=== PATIENT | male | born 1975 | race Two or more races ===

== ENCOUNTER 2025-03-02 06:30 | Day surgery (SDC) | payer MEDICAID, SELFPAY ==
--- NOTE | 2025-02-26 06:10 | EKG_ITS ---
[facility] Test Date: 2025-02-26 Pat Name: AMY MORGAN Department: Room: - Gender: Male [employer] Supervisor: JAVIER : 1975 Requested By: Suyapa Goins Order Number: [id number] Reading MD: Suyapa Goins Measurements Intervals [place] Rate: 78 P: 29 [place]: 163 QRS: 29 QRSD: 89 T: 18 QT: 395 QTc: 451 Interpretive Statements SINUS RHYTHM NONSPECIFIC T-WAVE ABNORMALITY Compared to ECG 07/21/2024 20:18:25 No significant changes /store/S0/[id number].pdf
[2025-02-26 10:55] VITALS: BMI 30.1
[2025-02-26 11:29] LABS: Basophils % (Auto) 0 % (0-2.5); Eosinophils # (Auto) 0.1 Thou/mm3 (0.0-0.5); Eosinophils % (Auto) 2 % (0-10); Hematocrit 36.2 % (41.0-53.0); Hemoglobin 13.1 g/dL (13.5-16.0); Immature Granulocytes % (Auto) 1 % (0-0); Immature Granulocytes Auto 0.02 Thou/mm3 (0.00-0.00); Lymphocytes # (Auto) 0.5 Thou/mm3 (1.0-4.8); Lymphocytes % (Auto) 14 % (10-50); Mean Corpuscular HGB Conc 36.2 g/dl (31.0-37.0); Mean Corpuscular Hemoglobin 30.7 pg (25.0-35.0); Mean Corpuscular Volume 85 fL (80-100); Monocytes # (Auto) 0.3 Thou/mm3 (0.0-0.8); Monocytes % (Auto) 10 % (0-12); Neutrophils # (Auto) 2.4 Thou/mm3 (1.8-7.7); Neutrophils % (Auto) 73 % (37-80); Nucleated Red Blood Cell % 0 /100 WBC (0); RDW Standard Deviation 54.8 fL (35.1-43.9); Red Blood Count 4.27 Miln/mm3 (4.50-5.90); White Blood Count 3.3 Thou/mm3 (3.8-10.6)
[2025-02-26 11:39] LABS: Platelet Count 44 Thou/mm3 (140-440)
[2025-02-26 11:41] LABS: INR 1.3 (0.9-1.3); Prothrombin Time 14.3 Seconds (9.0-12.2)
[2025-02-26 11:46] LABS: Alanine Aminotransferase 37 U/L (10-49); Albumin, Serum 3.7 gm/dL (3.5-5.0); Albumin/Globulin Ratio 0.8 (1.2-2.2); Alkaline Phosphatase 285 U/L (46-116); Anion Gap 14 (7-16); Aspartate Amino Transferase 139 U/L (0-34); BUN/Creatinine Ratio 6 Ratio (12-20); Bilirubin,Total 3.5 mg/dL (0.3-1.2); Blood Urea Nitrogen 7 mg/dL (9-23); Calcium 8.2 mg/dL (8.3-10.6); Calcium (Corrected) 8.4 mg/dL (8.5-10.1); Chloride 98 mMol/L (98-107); Creatinine (Component) 1.1 mg/dL (0.6-1.3); Estimated Creatinine Clearance 81.9 mL/min (>60); Globulin 4.6 gm/dL (2.3-3.5); Glucose 225 mg/dL (74-106); Osmolality,Calculated 284 (275-295); Sodium 140 mMol/L (136-145); Total Protein 8.3 gm/dL (5.7-8.2); eGFR > 60 See Note
--- NOTE | 2025-02-26 12:57 | SUR.PREOP ---
Platelets 44, PTT 14.3, INR 1.3, K 3, labs reviewed with ana luisa Rob to proceed with surgery.
[2025-02-26 15:54] LABS: Slide Review Platelets confirmed
[2025-03-02] VITALS (7 sets, daily range): BP systolic 129–154; BP diastolic 76–92; PULSE 84–96; RESP 12–16; TEMP 36.6–37; O2SAT 95–98; BMI 28.4
--- NOTE | 2025-03-02 11:59 | ESOP_ITS ---
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 After administration of general endotracheal anesthesia, patient's left groin was shaved, prepped and draped in standard surgical manner. The left inguinal crease was anesthetized with half percent Marcaine. An approximately 8 cm incision was made and dissection was carried to subcutaneous tissue. The Karen's fascia was divided and the external oblique aponeurosis was opened towards the external ring. The hernia sac and the spermatic cord structures were from the posterior aspect of the external oblique aponeurosis at the level of pubic tubercle. The hernia sac was then meticulously dissected off the spermatic cord structures at the level of internal ring. Patient had indirect left inguinal hernia sac. The hernia sac was then ligated at the level of internal ring. He was also noted to have a moderate-sized lipoma of the spermatic cord. The lipoma was meticulously from the spermatic cord structures and ligated at the level of internal ring and excised. The floor of inguinal canal was then reconstructed with ultra Pro proceed mesh. The mesh was secured with running 2-0 Prolene suture. The mesh secured medially to the pubic tubercle, superiorly into the conjoin tendon, inferiorly and to the shelving edge of inguinal ligament, the mesh was placed around the cord structures and tacked under the external oblique aponeurosis laterally. The area was copiously and thoroughly washed and irrigated, all the fluids were suctioned and the suction fluid returned clear. Hemostasis was adequate and satisfactory. External oblique aponeurosis was closed with running 2-0 Vicryl suture, and Karen's fascia was closed with interrupted suture using 3-0 Vicryl. The incision was closed with 4-0 Monocryl in subcutaneous fashion. Instruments, needles and sponge counts were reported to be correct ?2. Patient tolerated the procedure well. He was extubated, breathing spontaneously and without di fficulty and was transferred to postanesthesia care in stable condition. Anesthesia GETA and local Pathology / specimen Other (Hernia sac, lipoma of the spermatic cord) Estimated Blood Loss 25 Condition Stable Disposition PACU Surgeon Suyapa Goins MD Surgical Staff Operation Date: 03/02/25 11:00 Case Staff Anesthesiologist: Perez Waller RNbusiness services clerk: Gretchen Bingham
--- NOTE | 2025-03-02 12:02 | SUR.PHASEI ---
pt received from OR in recovery bay 7. pt awake and alert, breathing unlabored on oxymask 6l. v/s stable. pt dressing to lower abd cdi. report received from Ganesh Rn, Dr. Waller and Karson MCKINNON.
--- NOTE | 2025-03-02 12:22 | SUR.PHASEI ---
pt able to tolerate oral fluids without difficulty swallowing or nausea/vomiting.
--- NOTE | 2025-03-02 12:55 | SUR.PHASEII ---
Report from Joshua RN, pt awake, alert, able to follow commands, breathing unlabored, dressing to lower left inguinal region clean, dry, and intact, abdominal binder in place, pt disconnected from monitors and discharge instructions given by Joshua GARCIA
--- NOTE | 2025-03-02 13:03 | SUR.PHASEII ---
pt able to dress self and ambulate to wheelchair, pt discharged via wheelchair with all belongings and copies of discharge paperwork
--- NOTE | 2025-03-02 13:03 | SUR.PHASEII ---
pt able to dress self and ambulate to wheelchair with all belongings and copies of discharge paperwork.
== END 2025-03-02 13:03 | disposition home or self-care (01) ==
PROVIDERS: Anesthesiology; PCP Physician Assistant; Referring Provider Surgery; Visit Provider Surgery
PROC: (CPT 49505; principal; 2025-03-02 10:45)
DX: K40.90 Unilateral inguinal hernia, without obstruction or gangrene, not specified as recurrent (principal); D17.6 Benign lipomatous neoplasm of spermatic cord; Z01.810 Encounter for preprocedural cardiovascular examination
CPT/HCPCS: 49505; 36415; 80053; 85025; 85610; 85730; 93005; A4217; A4649; C1781; J0690; J1100; J2371; J2704; J2765; J3010; J3490; A9270; J1805

== ENCOUNTER 2025-04-01 07:47 | Outpatient (RCR) | payer MEDICAID, SELFPAY | END 2025-04-05 23:59 | disposition home or self-care (01) | LOC: SCTC 07:47 | PROVIDERS: PCP Physician Assistant; Referring Provider Physician Assistant; Visit Provider Nurse Practitioner Family | DX: D64.9 Anemia, unspecified (principal); K76.9 Liver disease, unspecified; Z87.19 Personal history of other diseases of the digestive system | CPT/HCPCS: 99213; G0463 ==

== ENCOUNTER 2025-05-05 12:51 | Outpatient (RCR) | payer MEDICAID, SELFPAY | END 2025-05-06 23:59 | disposition home or self-care (01) | LOC: SCTC 12:51 | PROVIDERS: PCP Physician Assistant; Referring Provider Physician Assistant; Visit Provider Nurse Practitioner Family | DX: D69.6 Thrombocytopenia, unspecified (principal); K76.9 Liver disease, unspecified; D50.9 Iron deficiency anemia, unspecified | CPT/HCPCS: 99212; G0463 ==

== ENCOUNTER 2025-08-30 08:09 | Inpatient (IN) | payer MEDICAID, SELFPAY ==
--- NOTE | 2025-08-30 | XR_ITS ---
EXAMINATION: MR MRCP HISTORY: choledocholithiasis COMPARISON: 08/30/2025, CT abdomen pelvis. TECHNIQUE: Multiplanar multisequence MR imaging of the abdomen without gadolinium contrast. Additional heavily T2-weighted 3-D MRCP breath-hold images were obtained, including thick slab reconstructions. FINDINGS: Lung bases: Unremarkable. Gall bladder: Hydropic measuring 4.2 x 10.2 cm. Multiple 1 to 2 mm dependent hypointensities. Wall measures 3 mm. Small amount of surrounding T2 hyperintensity. Biliary system: No biliary ductal dilatation. No stones identified within the biliary tree. Pancreatic duct is not well-visualized. Liver: Macronodular. Midclavicular craniocaudad length 17.1 cm. Diffusely decreased T2 signal. No obvious mass, though lack of contrast limits evaluation. Spleen: 17.3 cm length. Pancreas: No gross abnormality. Some surrounding edema in the setting of ascites. Kidneys: Within normal limits. No hydronephrosis. Adrenal Glands: Within normal limits. GI Tract: Not abnormally dilated. Mild wall thickening particularly of the descending colon. Surrounding edema in the setting of ascites. Small hiatal hernia. Gastroesophageal varices. Gastric varices. Lymph nodes: No obvious lymphadenopathy. Peritoneum: Moderate ascites. Other: No significant. Bones/marrow: Unremarkable. IMPRESSION: 1. Hydropic gallbladder with mild wall thickening and innumerable 1 to 2 mm choleliths. While the surrounding edema could be due to ascites, the constellation of findings are highly concerning for acute cholecystitis. No MR findings for choledocholithiasis. 2. Decompensated cirrhosis with sequela of portal hypertension as above.
[2025-08-30 08:24] VITALS: BP 136/88; PULSE 86; RESP 18; TEMP 36.6; O2SAT 97; BMI 26.6
--- NOTE | 2025-08-30 08:30 | PD.EDRME ---
Rapid Medical Screening Exam RME Arrival date/time: 08/30/25 08:09 49-year-old male with a history of type 2 diabetes, liver cirrhosis secondary to alcohol, esophageal varices, presents to the emergency room with a chief complaint of an episode of vomiting blood this morning. I have greeted and performed a focused initial assessment of this patient. A comprehensive ED assessment and evaluation of the patient, analysis of all test results, and completion of the medical decision making process will be conducted by additional ED providers. Chief Complaint: General Adult/Misc Complain Vital signs: Vital Signs Temperature 98 F 08/30/25 08:24 Pulse Rate 86 08/30/25 08:24 Respiratory Rate 18 08/30/25 08:24 Blood Pressure 136/88 H 08/30/25 08:24 Pulse Oximetry (%) 97 08/30/25 08:24 Oxygen Delivery Method Room Air 08/30/25 08:24 Vital signs reviewed by provider: Yes Exam: Soft nontender abdomen. No distention. Clear bilateral lung sounds Clinical Impression: Upper GI bleed/esophageal varices
--- NOTE | 2025-08-30 08:31 | XR_ITS ---
Examination: CT abdomen and pelvis without contrast. Coronal 3-D reconstructions. Sagittal 2-D reconstructions. Date and time of exam: August 30, 2025, 0911 hours INDICATIONS: Generalized abdominal pain and vomiting blood this morning CTDI: vol (mGy): 8.19 DLP: (mGycm): 473 Technique: Axial images of the abdomen have been obtained, 3 mm slice thickness Intravenous contrast material has not been administered. Low dose protocols were performed. One or more of the following dose reduction techniques were used; automated exposure control, adjustment of the mA and/or KV according to patient size, use of iterative reconstruction technique. Findings: Cirrhosis, liver irregular in contour with multiple low-density lesions throughout the liver Mild to moderate ascites Significant splenomegaly Esophageal varices Perigastric varices Cholelithiasis Diffuse mucosal thickening involving the stomach No pancreatic mass No renal or ureteral calculi, no hydronephrosis Aorta normal size 24 mm fat-containing umbilical hernia Diffuse thickening of the colonic wall hepatic colopathy pattern No bowel obstruction Normal appendix Mucosal thickening up to 10 mm involving the stomach No prostatomegaly Prominent osteopenia IMPRESSION: Cirrhosis, markedly abnormal heterogeneous radiodensity with multiple low-density lesions throughout the liver, recommend MRI abdomen liver follow-up pre and postcontrast to exclude neoplastic liver lesions Significant splenomegaly Mild to moderate ascites Esophageal varices, perigastric varices Gastritis, cholelithiasis Hepatic colopathy No bowel obstruction
[2025-08-30 09:11] LABS: Basophils # (Auto) 0.0 Thou/mm3 (0.0-0.2); Basophils % (Auto) 1 % (0-2.5); Eosinophils # (Auto) 0.1 Thou/mm3 (0.0-0.5); Eosinophils % (Auto) 2 % (0-10); Hematocrit 36.9 % (41.0-53.0); Hemoglobin 12.7 g/dL (13.5-16.0); Immature Granulocytes Auto 0.04 Thou/mm3 (0.00-0.00); Lymphocytes # (Auto) 0.4 Thou/mm3 (1.0-4.8); Lymphocytes % (Auto) 8 % (10-50); Mean Corpuscular HGB Conc 34.4 g/dl (31.0-37.0); Mean Corpuscular Hemoglobin 34.0 pg (25.0-35.0); Mean Corpuscular Volume 99 fL (80-100); Monocytes # (Auto) 0.5 Thou/mm3 (0.0-0.8); Monocytes % (Auto) 10 % (0-12); Neutrophils # (Auto) 4.1 Thou/mm3 (1.8-7.7); Neutrophils % (Auto) 79 % (37-80); Nucleated Red Blood Cell # 0.00 Thou/mm3 (0.00-0.00); Nucleated Red Blood Cell % 0 /100 WBC (0); RDW Standard Deviation 54.3 fL (35.1-43.9); Red Blood Count 3.74 Miln/mm3 (4.50-5.90); White Blood Count 5.2 Thou/mm3 (3.8-10.6)
[2025-08-30 09:13] LABS: INR 1.3 (0.9-1.3); Partial Thromboplastin Time 31.0 Seconds (22.0-36.0); Prothrombin Time 13.8 Seconds (9.0-12.2)
[2025-08-30 09:17] LABS: Alanine Aminotransferase 58 U/L (10-49); Albumin, Serum 3.5 gm/dL (3.5-5.0); Albumin/Globulin Ratio 0.8 (1.2-2.2); Alkaline Phosphatase 347 U/L (46-116); Anion Gap 12 (7-16); Aspartate Amino Transferase 177 U/L (0-34); BUN/Creatinine Ratio 7 Ratio (12-20); Bilirubin,Total 6.5 mg/dL (0.3-1.2); Blood Urea Nitrogen 7 mg/dL (9-23); Calcium 8.5 mg/dL (8.3-10.6); Calcium (Corrected) 8.9 mg/dL (8.5-10.1); Carbon Dioxide 29.2 mMol/L (20.0-31.0); Chloride 102 mMol/L (98-107); Creatinine (Component) 1.0 mg/dL (0.6-1.3); Estimated Creatinine Clearance 88.4 mL/min (>60); Globulin 4.4 gm/dL (2.3-3.5); Glucose 189 mg/dL (74-106); Lipase 52 U/L (12-53); Osmolality,Calculated 287 (275-295); Potassium 3.2 mMol/L (3.4-5.1); Sodium 143 mMol/L (136-145); Total Protein 7.9 gm/dL (5.7-8.2); eGFR > 60 See Note
[2025-08-30 09:19] LABS: Platelet Count 68 Thou/mm3 (140-440)
[2025-08-30 09:32] LABS: Collection Type, Urine Clean Catch; WBC,Urine 0 /hpf (0-5)
[2025-08-30 10:09] LABS: Bilirubin,Urine Negative (Negative); Blood,Urine Negative (Negative); Clarity,Urine Clear (Clear/Hazy); Color,Urine Yellow (Lt Yel-Yel); Glucose, Urine 4+ (Negative); Ketones,Urine Negative (Negative); Leukocyte Esterase,Urine Negative (Negative); Nitrite,Urine Negative (Negative); PH,Urine 6.5 (5.0-7.0); Protein,Urine Negative (Neg - Trace); RBC,Urine 2 /hpf (0-3); Specific Gravity,Urine 1.016 (1.001-1.035); Squamous Epithelial Cell,Urine < 1 /hpf (0-5); Urobilinogen,Urine Negative mg/dL (0.0-1.0)
[2025-08-30 10:50] VITALS: BP 122/69; PULSE 82; RESP 18; TEMP 36.7; O2SAT 97
--- NOTE | 2025-08-30 10:59 | EDNOTE_ITS ---
ED GI Bleed RME/HPI General Chief complaint: General Adult/Misc Complain Stated complaint: COUGHING UP BLOOD Arrival date/time: 08/30/25 08:09 Limitations: no limitations RME / HPI RME / HPI Narrative: 08/30/25 08:09 49-year-old male with a history of type 2 diabetes, liver cirrhosis secondary to alcohol, esophageal varices, presents to the emergency room with a chief complaint of an episode of vomiting blood this morning. I have greeted and performed a focused initial assessment of this patient. A comprehensive ED assessment and evaluation of the patient, analysis of all test results, and completion of the medical decision making process will be conducted by additional ED providers. DR. BILLS MAIN ED EVALUATION 49 year old male with history of liver cirrhosis secondary to alcohol use, esophageal varices, diabetes presents to the ED for evaluation of vomiting bright red, tejas blood at approximately 07:00 AM today. Patient states this is the second occurrence of hematemesis in the last year, with a prior episode diagnosed as esophageal varices, for which banding was performed. He denies fever, chills, chest pain, shortness of breath, cough, or abdominal pain. He also denies melena, changes in bowel habits, or any recent use of blood thinners or aspirin. Denies alcohol consumption, states he last drank 2 years ago. Exam: Soft nontender abdomen. No distention. Clear bilateral lung sounds Impression: Upper GI bleed/esophageal varices Related Data Home Medications ?Medication ?Instructions ?Recorded ?Confirmed cholecalciferol (vitamin D3) 1,250 50,000 unit PO QWEE K 07/25/24 08/30/25 mcg (50,000 unit) capsule empagliflozin 25 mg tablet 25 mg PO QDAY 07/25/2408/08 (Jardiance) furosemide 40 mg tablet 40 mg PO QDAY 07/25/2408/30 spironolactone 25 mg tablet 25 mg PO 1XD 07/25/2408/08 lactulose 10 gram/15 mL oral syrup 10 g PO TID 5 08/30/25 Previous Rx's ?Medication ?Instructions ?Recorded propranolol 10 mg tablet 10 mg PO BID #60 tabs pantoprazole 40 mg tablet,delayed 40 mg PO QDAY #30 ta bs 09/03/25 release (Protonix) Allergies Allergy/AdvReac Type Severity Reaction Status Date / Time No Known Allergies Allergy Verified 08/30/25 08:13 Review of Systems Review of Systems Systems Reviewed: All systems reviewed, normal except as documented Past Medical History Past Medical History CARDIAC: Positive Cardiac Disorders and Hypertension GASTROINTESTINAL: Positive Gastrointestinal Disorders, Cirrhosis and Esophageal Varices ENDOCRINE: Positive Endocrine Disorders and Diabetes Mellitus Type 2 HEMATOLOGIC: Positive Blood Disorders and Anemia OTHER HISTORY: Positive Hospitalization (liver) and Blood Transfusions Social History SMOKING STATUS: Never smoker ED Exam General Limitations: Present no limitations General appearance: Present alert, in no apparent distress and other (chronically ill appearing ) Head Head exam: Present atraumatic Eye Eye exam: Present PERRL, EOMI and scleral icterus (mild ) ENT ENT exam: Present normal exam, normal oropharynx and mucous membranes moist Neck Neck exam: Present normal inspection, full ROM and trachea midline Chest Chest inspection: Present normal inspection and symmetric chest wall rise Respiratory Respiratory exam: Present normal lung sounds bilaterally Cardiovascular Cardiovascular exam: Present regular rate, normal rhythm and normal heart sounds Abdominal Exam Abdominal exam: Present soft and normal bowel sounds Extremities Exam Extremities exam: Present normal inspection, full ROM and other (No lower extremity edema ) Back Exam Back exam: Present normal inspection and full ROM Neurological Exam Neurological exam: Present alert, oriented X3 and CN II-XII intact Psychiatric Psychiatric exam: Present normal affect and normal mood Skin Skin exam: Present warm, dry, intact and normal color Course Quality Measures none Orders Category Date Time Status Admit to Inpatient Status Routine Admission 08/30/25 14:58 Active Patient Condition Routine Admission 08/30/25 14:58 Ordered Activity as Tolerated Routine Care 08/30/25 14:59 Ordered Blood Sugar Check-Sandostatin Q6HR Care 08/30/25 11:28 Completed MRI Screening NOW Care 08/30/25 13:34 Completed May take PO meds w/sips of H2O NEEDED Care 08/30/25 15:02 Completed Miscellaneous Nursing Order X1 Care 08/30/25 15:06 Completed NPO NOW Care 08/30/25 15:03 Completed Notify provider NEEDED Care 08/30/25 14:58 Completed Notify provider NOW Care 08/30/25 13:18 Completed Sequential Compression Device QSHIFT Care 08/30/25 14:58 Completed Strict Intake and Output Routine Care 08/30/25 14:59 Ordered Consult to Gastroenterology Stat Cons 08/30/25 13:47 Ordered Diet NPO (NOW) Diet 08/30/25 15:[address] abdomen pelvis wo con Stat Exams 08/30/25 08:31 Completed MR MRCP Stat Exams 08/30/25 Completed US abdomen limited Stat Exams 08/30/25 13:34 Completed A1C [Glycohemoglobin w (eAG)] AM DRAW Lab 08/31/25 04:23 Completed CBC AM DRAW Lab 08/31/25 04:23 Completed CBC AM DRAW Lab 09/01/25 05:30 Completed CBC AM DRAW Lab 09/02/25 06:15 Completed CBC AM DRAW Lab 09/03/25 05:32 Completed CBC Stat Lab 08/30/25 08:44 Completed CMP [Comprehensive Metabolic Panel] Stat Lab 08/30/25 08:44 Completed Comprehensive Metabolic Panel AM DRAW Lab 08/31/25 04:23 Completed Comprehensive Metabolic Panel AM DRAW Lab 09/01/25 05:30 Completed Comprehensive Metabolic Panel AM DRAW Lab 09/02/25 06:15 Completed Comprehensive Metabolic Panel AM DRAW Lab 09/03/25 05:32 Completed Lipase Stat Lab 08/30/25 08:44 Completed PT [Prothrombin Time with INR] Stat Lab 08/30/25 08:44 Completed PTT [Partial Thromboplastin Time] Stat Lab 08/30/25 08:44 Completed Type and Screen Stat Lab 08/30/25 11:00 Completed UA [Urinalysis] Stat Lab 08/30/25 09:00 Completed Urine Culture Stat Lab 08/30/25 09:00 Completed Acetaminophen Tab [Tylenol Tab] Med 08/30/25 14:58 Discontinued 650 mg PO Q6H PRN Melatonin Med 08/30/25 21:00 Discontinued 6 mg PO HS Octreotide Acet Inj [SandoSTATIN Inj] Med 08/30/25 10:51 Discontinued 50 mcg IV X1 ONE Ondansetron Inj [Zofran Inj] Med 08/30/25 14:58 Discontinued 4 mg IVP Q6H PRN POTASSIUM CHL 10 mEq IVPB [Kcl Ivpb] Med 08/30/25 13:36 Discontinued 10 meq in 100 ml IV STAT Pantoprazole Inj [Protonix Inj] Med 08/31/25 09:00 Discontinued 40 mg IVP BID Pantoprazole/Ns 80Mg IV Premix [Protonix/NS 80mg IV Med 08/30/25 10:51 Discontinued Premix] 80 mg in 100 ml IV X1 Pantoprazole/Ns 80Mg IV Premix [Protonix/NS 80mg IV Med 08/30/25 11:15 Discontinued Premix] 80 mg in 100 ml IV X1 Sodium Chloride 0.9% [Ns] 100 ml Med 08/30/25 11:15 Discontinued Octreotide Acet Inj [SandoSTATIN Inj] 1,000 mcg IV 50 mcg/hr Sodium Chloride 0.9% [Ns] 100 ml Med 08/31/25 07:15 Discontinued Octreotide Acet Inj [SandoSTATIN Inj] 1,000 mcg IV 50 mcg/hr cefTRIAXone/D5w 1gm IV premix [Rocephin/D5w 1gm IV Med 08/30/25 15:04 Discontinued premix] 1 gm in 50 ml IV QDAY Code Status Routine Oth 08/30/25 14:58 Completed Vital Signs Vital signs: Vital Signs Temperature 98 F 08/30/25 08:24 Pulse Rate 86 08/30/25 08:24 Respiratory Rate 18 08/30/25 08:24 Blood Pressure 136/88 H 08/30/25 08:24 Pulse Oximetry (%) 97 08/30/25 08:24 Oxygen Delivery Method Room Air 08/30/25 08:24 Pulse ox is 97% on room air which is adequate. GI Bleed MDM Narrative MDM Narrative:: Patient is a 49-year-old male with medical history notable for prior alcohol use disorder, has been sober for some time now, prior esophageal varices is in the emergency department concerns for hematemesis. Vital signs and exam as listed. Concern for esophageal bleed, gastric erosion, among others. Ordered labs, Protonix bolus and drip, octreotide bolus and drip. Prior provider also ordered CT scan of the abdomen pelvis. CT scan without contrast identified esophageal and gastric varices. Patient blood type is a positive. Urinalysis without evidence of infection. Patient hemoglobin 12.7 this is at his baseline, platelets 68 potassium 3.2 will replete in the emergency department, patient with a T. bili of 6.5 previously 2-4.5. Patient w/o abdominal pain. Less likely choledocholithiasis. Ordered right upper quadrant ultrasound. Will discuss admission with the hospitalist service. Consult placed for GI. 1342: I spoke with hospitalist team A for admission. 1345: I spoke with GI Dr. Barclay. Discussed patients PMHx, HPI, ED course, exam findings, labs, and radiology results. He agree with management. Will consult. Patient data External records reviewed:: [facility] previous records (I reviewed admission from 07/21/2024 through 07/26/2024 for GI bleed) Clinical information provided by:: patient Social determinants that could affect healthcare access:: none Patient has the following chronic illnesses:: liver cirrhosis secondary to alcohol use, esophageal varices, diabetes How is presenting disease/condition affected by chronic disease/condition?: exacerbated by Evaluation data The following diagnostics were reviewed and interpreted by me:: lab results and radiology exam(s) Lab and/or radiology exams considered but not ordered:: none Interpretation Summary: Ordering Physician: Dru Christianson Date of Service: 08/30/25 Procedure(s): CT abdomen pelvis wo con Accession Number(s): [id number] cc: Macario Muñoz; Dru Christianson; Rigoberto Allen MD~ Examination: CT abdomen and pelvis without contrast. Coronal 3-D reconstructions. Sagittal 2-D reconstructions. Date and time of exam: August 30, 2025, 0911 hours INDICATIONS: Generalized abdominal pain and vomiting blood this morning CTDI: vol (mGy): 8.19 DLP: (mGycm): 473 Technique: Axial images of the abdomen have been obtained, 3 mm slice thickness Intravenous contrast material has not been administered. Low dose protocols were performed. One or more of the following dose reduction techniques were used; automated exposure control, adjustment of the mA and/or KV according to patient size, use of iterative reconstruction technique. Findings: Cirrhosis, liver irregular in contour with multiple low-density lesions throughout the liver Mild to moderate ascites Significant splenomegaly Esophageal varices Perigastric varices Cholelithiasis Diffuse mucosal thickening involving the stomach No pancreatic mass No renal or ureteral calculi, no hydronephrosis Aorta normal size 24 mm fat-containing umbilical hernia Diffuse thickening of the colonic wall hepatic colopathy pattern No bowel obstruction Normal appendix Mucosal thickening up to 10 mm involving the stomach No prostatomegaly Prominent osteopenia IMPRESSION: Cirrhosis, markedly abnormal heterogeneous radiodensity with multiple low-density lesions throughout the liver, recommend MRI abdomen liver follow-up pre and postcontrast to exclude neoplastic liver lesions Significant splenomegaly Mild to moderate ascites Esophageal varices, perigastric varices Gastritis, cholelithiasis Hepatic colopathy No bowel obstruction Dictated By: Rigoberto Allen MD Signed By: <Electronically signed by Rigoberto Allen MD in OV> 08/30/25 0939 Medications / Prescriptions Medications or Prescriptions considered but not ordered:: None Medication administrations:: Medication Administration History Discontinued Medications Acetaminophen (Acetaminophen 325 Mg Tablet) 650 mg PO Q6H PRN PRN Reason: PAIN SCALE 1-3 (mild Stop: 09/29/25 14:57 Benzocaine (Benzocaine 20% (Hurricaine) [place] 1 Dose) 0 dose TOP X1 ONE Stop: 08/31/25 15:08 Last Admin: 08/31/25 18:32 Dose: Not Given Documented By: Non-Admin Reason: Discontinued Benzocaine (Benzocaine 20% (Hurricaine) [place] 1 Dose) Confirm Administered Dose 1 dose TOP .STK-MED ONE Stop: 08/31/25 15:21 Dextrose (Dextrose 50%-Water Inj 50 Ml Syringe) 25 ml IV Q15MIN PRN PRN Reason: BG 50-70 responsive npo pt Stop: 10/02/25 16:46 Dextrose (Dextrose 50%-Water Inj 50 Ml Syringe) 50 ml IV Q15MIN PRN PRN Reason: BG <50 OR BG <70 & pt unresponsive Stop: 10/02/25 16:46 Diphenhydramine HCl (Diphenhydramine Inj 50 Mg/Ml Vial) 25 mg IVP PRNMRX1 PRN PRN Reason: MODERATE SEDATION Diphenhydramine HCl (Diphenhydramine Inj 50 Mg/Ml Vial) Confirm Administered Dose 50 mg .ROUTE .STK-MED ONE Stop: 08/31/25 15:21 Fentanyl Citrate (Fentanyl Cit Inj 50 Mcg/Ml Amp 2ml) 50 mcg IVP Q2M PRN PRN Reason: MODERATE SEDATION Fentanyl Citrate (Fentanyl Cit Inj 50 Mcg/Ml Amp 2ml) Confirm Administered Dose 100 mcg .ROUTE .STK-MED ONE Stop: 08/31/25 15:21 Fentanyl Citrate (Fentanyl Cit Inj 50 Mcg/Ml Amp 2ml) Confirm Administered Dose 100 mcg .ROUTE .STK-MED ONE Stop: 08/31/25 17:29 Glucagon (Glucagon Inj 1 Mg Vial) 1 mg IM Q15MIN PRN PRN Reason: BG <70, and no IV access Pantoprazole Sodium (Protonix/Ns 80mg Iv Premix) 80 mg in 100 mls @ 400 mls/hr IV X1 ONE Stop: 08/30/25 11:29 Last Infusion: 08/30/25 11:35 Dose: Infused Documented By: Admin: 08/30/25 11:19 Dose: 400 mls/hr Documented By: DALIA Pantoprazole Sodium (Protonix/Ns 80mg Iv Premix) 80 mg in 100 mls @ 10 mls/hr IV X1 ONE Stop: 08/30/25 20:50 Last Infusion: 08/30/25 14:43 Dose: Infused Documented By: Infusion: 08/30/25 14:03 Dose: Infused Documented By: Admin: 08/30/25 11:35 Dose: 10 mls/hr Documented By: DALIA Octreotide Acetate 1,000 mcg/ (Sodium Chloride) 102 mls @ 5.1 mls/hr IV .Q20H YOAN; Protocol Stop: 08/31/25 07:14 Last Infusion: 08/30/25 14:36 Dose: 50 mcg/hr, 5.1 mls/hr Documented By: Infusion: 08/30/25 14:02 Dose: 0 mcg/hr, 0 mls/hr Documented By: Admin: 08/30/25 11:26 Dose: 50 mcg/hr, 5.1 mls/hr Documented By: DALIA Octreotide Acetate 1,000 mcg/ (Sodium Chloride) 102 mls @ 5.1 mls/hr IV .Q20H YOAN; Protocol Stop: 09/04/25 11:14 Last Admin: 09/02/25 21:48 Dose: 50 mcg/hr, 5.1 mls/hr Documented By: Infusion: 09/02/25 18:36 Dose: Infused Documented By: Admin: 09/01/25 22:36 Dose: 50 mcg/hr, 5.1 mls/hr Documented By: Infusion: 09/01/25 22:36 Dose: Infused Documented By: Admin: 09/01/25 02:54 Dose: 50 mcg/hr, 5.1 mls/hr Documented By: Infusion: 09/01/25 02:54 Dose: Infused Documented By: Admin: 08/31/25 07:33 Dose: 50 mcg/hr, 5.1 mls/hr Documented By: Potassium Chloride (Kcl Ivpb) 10 meq in 100 mls @ 100 mls/hr IV STAT STA Stop: 08/30/25 14:35 Last Infusion: 08/30/25 15:49 Dose: Infused Documented By: Admin: 08/30/25 14:51 Dose: 100 mls/hr Documented By: DALIA Ceftriaxone Sodium/Dextrose (Rocephin/D5w 1gm Iv Premix) 1 gm in 50 mls @ 100 mls/hr IV QDAY YOAN Stop: 09/06/25 15:03 Last Admin: 09/03/25 09:23 Dose: 100 mls/hr Documented By: Infusion: 09/02/25 08:56 Dose: Infused Documented By: Admin: 09/02/25 08:26 Dose: 100 mls/hr Documented By: Infusion: 09/01/25 08:34 Dose: Infused Documented By: Admin: 09/01/25 08:04 Dose: 100 mls/hr Documented By: Infusion: 08/31/25 09:29 Dose: Infused Documented By: Admin: 08/31/25 08:59 Dose: 100 mls/hr Documented By: Infusion: 08/30/25 17:15 Dose: Infused Documented By: Admin: 08/30/25 15:49 Dose: 100 mls/hr Documented By: DALIA Influenza Virus Vaccine Quadrival (Influenza Virus 0.5 Ml Syringe 5-) 0.5 ml IMi .ONCE ONE Stop: 08/30/25 18:39 Insulin Human Lispro (Insulin Lispro (Admelog) 1 Unit/0.01 Ml Unit) 0 unit SC AC YOAN; Protocol Stop: 10/02/25 16:59 Last Admin: 09/03/25 11:15 Dose: Not Given Documented By: REYNA Non-Admin Reason: Patient Refused Comments: Admin: 09/03/25 07:25 Dose: Not Given Documented By: REYNA Non-Admin Reason: Per Protocol Admin: 09/02/25 17:13 Dose: 1 unit Documented By: GUS Co-signed By: [email or web address] Lactulose (Lactulose Syrup 20 Gm/30 Ml Udc) 10 gm PO TID YOAN Stop: 10/01/25 13:59 Last Admin: 09/03/25 05:05 Dose: 10 gm Documented By: Admin: 09/02/25 21:48 Dose: 10 gm Documented By: Admin: 09/02/25 14:12 Dose: 10 gm Documented By: Admin: 09/02/25 05:54 Dose: 10 gm Documented By: Admin: 09/01/25 21:15 Dose: Not Given Documented By: ELIER Non-Admin Reason: PT REFUSED, X2 LARGE STOOLS TODAY Admin: 09/01/25 14:18 Dose: 10 gm Documented By: GILA Melatonin (Melatonin 3 Mg Tablet) 6 mg PO HS YOAN Stop: 09/29/25 20:59 Last Admin: 09/02/25 21:48 Dose: 6 mg Documented By: Admin: 09/01/25 21:14 Dose: 6 mg Documented By: Admin: 08/31/25 20:09 Dose: 6 mg Documented By: Admin: 08/30/25 20:17 Dose: Not Given Documented By: Non-Admin Reason: Patient Refused Midazolam HCl (Midazolam Inj 1 Mg/Ml Vial 2 Ml) 2 mg IVP Q2M PRN PRN Reason: Moderate Sedation Midazolam HCl (Midazolam Inj 1 Mg/Ml Vial 2 Ml) Confirm Administered Dose 4 mg .ROUTE .STK-MED ONE Stop: 08/31/25 15:21 Midazolam HCl (Midazolam Inj 1 Mg/Ml Vial 2 Ml) Confirm Administered Dose 2 mg .ROUTE .STK-MED ONE Stop: 08/31/25 17:29 Octreotide Acetate (Octreotide Acet Inj 50 Mcg/Ml Vial) 50 mcg IV X1 ONE Stop: 08/30/25 10:52 Last Admin: 08/30/25 11:22 Dose: 50 mcg Documented By: DALIA Ondansetron HCl (Ondansetron Inj 2 Mg/Ml Inj 2 Ml) 4 mg IVP Q6H PRN; Protocol PRN Reason: NAUSEA OR VOMITING Stop: 09/29/25 14:57 Pantoprazole Sodium (Pantoprazole Inj 40 Mg Vial) 40 mg IVP BID YOAN Stop: 09/30/25 08:59 Last Admin: 08/31/25 20:09 Dose: 40 mg Documented By: Admin: 08/31/25 08:59 Dose: 40 mg Documented By: Pantoprazole Sodium (Pantoprazole Inj 40 Mg Vial) 40 mg IVP QDAY [facility] Stop: 10/01/25 08:59 Last Admin: 09/03/25 09:23 Dose: 40 mg Documented By: Admin: 09/02/25 08:26 Dose: 40 mg Documented By: Admin: 09/01/25 08:05 Dose: 40 mg Documented By: GILA Potassium Chloride (Potassium Chloride 10% 20 Meq/15 Ml Udc) 40 meq PO X1 ONE Stop: 08/31/25 10:12 Last Admin: 08/31/25 11:08 Dose: Not Given Documented By: Non-Admin Reason: Discontinued Comments: PT NPO Potassium Chloride (Potassium Chloride 10% 20 Meq/15 Ml Udc) 40 meq PO X1 ONE Stop: 08/31/25 20:01 Last Admin: 08/31/25 20:09 Dose: 40 meq Documented By: ELIER Spironolactone (Spironolactone 25 Mg Tablet) 50 mg PO QDAY [facility] Stop: 10/01/25 08:59 Last Admin: 09/03/25 09:23 Dose: 50 mg Documented By: Admin: 09/02/25 08:26 Dose: 50 mg Documented By: Admin: 09/01/25 08:05 Dose: 50 mg Documented By: GILA See above Consultations Consultation(s) initiated? (list below): Yes Consultation #1 (Physician, Specialty, Details): See MDM Diagnosis GI bleed differential diagnosis: hemorrhoids, esophageal varices, Aysha-Haddad syndrome and Upper gastrointestinal hemorrhage Most likely diagnosis given after review of the tests above:: Hematemesis Hyperbilirubinemia Admission Indicated Admission indicated?: indicated Admission Request Was there a request for admission?: Yes Admission Attestation Admission request attestation: Discussed case withHospitalist service regarding admission. Discussed patients ED course, exam findings, labs, and radiology results. The Hospitalist [agrees] to accept the patient for admission. Disposition Plan Disposition Plan: Admit Critical Care Time Critical Care Time Critical Care Time: Yes Total Critical Care Time (min.): 36 Attestation: Total critical care time: Approximately?36?minutes Due to a high probability of clinically significant, life threatening deterioration, the patient required my highest level of preparedness to intervene emergently and I personally spent this critical care time directly and personally managing the patient. This critical care time included obtaining a history; examining the patient; pulse oximetry; ordering and review of studies; arranging urgent treatment with development of a management plan; evaluation of patient's response to treatment; frequent reassessment; and, discussions with other providers. This critical care time was performed to assess and manage the high pro bability of imminent, life-threatening deterioration that could result in multi-organ failure. It was exclusive of separately billable procedures and treating other patients and teaching time. Please see MDM section and the rest of the note for further information on patient assessment and treatment. Discharge Plan Plan Patient Disposition: Admit Acute Care w/in Hospital Patient condition on transfer: Stable Problem List Clinical Impression: Hematemesis, Hyperbilirubinemia
[2025-08-30] MEDS: PANTOPRAZOLE/NS 80MG IV PREMIX 80 MG/100 ML BAG 400 MG IV (11:19)
[2025-08-30] MEDS: OCTREOTIDE ACET INJ 50 mCg/ML VIAL IV (11:22)
[2025-08-30] MEDS: OCTREOTIDE ACET INJ 1,000 MCG in SODIUM CHLORIDE 0.9% 100 ML 5.1 MCG IV (11:26)
[2025-08-30 11:29] LABS: Slide Review Platelets confirmed
[2025-08-30] MEDS: PANTOPRAZOLE/NS 80MG IV PREMIX 80 MG/100 ML BAG 10 MG IV (11:35)
[2025-08-30 12:11] VITALS: BP 121/68; PULSE 79; RESP 18; TEMP 36.8; O2SAT 97
--- NOTE | 2025-08-30 13:34 | XR_ITS ---
Examination: Abdomen sonogram, Limited Date and time of exam: August 30, 2025, 1456 hours INDICATIONS: Alcohol abuse history, vomiting blood today Technique: Real-time chawla scale transabdominal sonographic images of the upper abdomen obtained. Findings: Multiple gallstones Gallbladder wall is thickened 0.45 cm, however the patient has ascites Common bile duct 0.3 cm Pancreatic head 3.4 cm fluid around the pancreas however again the patient has ascites Liver 17.8 cm lobular contour fatty infiltration no focal liver lesions Normal hepatopetal portal venous flow Patent IVC IMPRESSION: Cholelithiasis, gallbladder wall is thickened but the patient has ascites Consider HIDA scan follow-up Cirrhosis
--- NOTE | 2025-08-30 14:46 | PC.NURSE ---
I was unable to restart Panoprazole 80mg/100mL on the DEC when Pt came back from MRI, I called pharmacy and spoke with frantz the Pharmacist he is aware. restated @ 1443hr shoulde end @5880hr
[2025-08-30] MEDS: POTASSIUM CHL 10 mEq IVPB 10 MEQ/100 ML BAG 100 MEQ IV (14:51)
[2025-08-30] MEDS: cefTRIAXone/D5w 1gm IV premix 1 GM/50 ML BAG IV (15:49)
--- NOTE | 2025-08-30 16:06 | ESHP_ITS ---
<Statement entered by Felisa Hunt MD - 08/31/25 07:23> Patient was seen and examined by me personally. I have directly supervised and reviewed documentation by the team resident and agree with its findings with any exceptions or additional findings as below. Plan of care was discussed with the attending, Dr. Velez. 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 He reports that he vomited earlier in the morning and produced tejas, red, liquid vomitus but that he has not had any further episodes since arriving in the ED. He reports that he has had similar prior episodes and that the last time it occurred was in June of last year. PMH: T2DM PSH: Hernia surgery performed last February Medications: Spironolactone 25 mg daily, Jardiance 25 mg daily, propranolol 10 mg twice daily, Protonix 40 mg twice daily, Lasix 40 mg daily Allergies: NKDA FH: None SH: Drank an average of 12 beers per day from the age of 29 to 47 years old, no significant smoking or recreational drug use history In the ED, vitals showed: BP 136/88 HR 86 RR 18 Temp 98 SpO2 97% on room air CBC showed hemoglobin 12.7 and platelet count 68. Coagulation panel showed PT 13.8, INR 1.3, APTT 31.0. CMP showed potassium 3.2, blood glucose 189, total bilirubin 6.5, AST 177, ALT 58, ALP 347. UA was bland. Imagin/24 MRCP showed a hydropic gallbladder with mild wall thickening and innumerable choleliths of 1 to 2 mm dimensions which is concerning for acute cholecystitis as well as decompensated cirrhosis with sequela of portal hypertension. 08/30 CTAP showed cirrhosis with markedly abnormal heterogeneous radiodensities and multiple low-density lesions throughout the liver, significant splenomegaly, mild to moderate ascites, esophageal varices, perigastric varices, gastroenteritis, cholelithiasis, hepatic colopathy, and no bowel obstruction. 08/30 abdominal US showed cholelithiasis, cirrhosis, and thickened gallbladder wall (patient has ascites). In the ED, patient was given Protonix IV, octreotide IV, Rocephin IV, and started on octreotide drip. Patient was admitted for the work-up and management of GI bleed from hematemesis in the setting of known history of cirrhosis and esophageal varices. GI was consulted and is closely following the case. Review of Systems Review of Systems Systems Reviewed: All systems reviewed, normal except as documented Exam Vital Signs Temp Pulse Resp BP Pulse Ox O2 Del Method 98.2 F 79 18 121/68 97 Room Air 08/30/25 12:11 08/30/25 12:11 08/30/25 12:11 08/30/25 12:11 08/30/25 12:11 08/30/25 12:11 Narrative Exam General: Well-developed and well-nourished male in no acute distress. Skin: Warm, dry, intact, no obvious rash. Head: Normocephalic, atraumatic. Eyes: Scleral icterus. EOMI. Vision grossly intact. Ears: No ear pain, no ear discharge, Hearing grossly intact. Nose: No nasal discharge. Mouth/Throat: Oral mucosa moist. No obvious lesions in oropharynx. Cardiovascular: Regular rate and normal rhythm, no murmur, no JVD or carotid bruits. +S1/S2. Respiratory: Bilateral lungs are clear to auscultation, respirations unlabored, no crackles, no wheezing. No accessory muscle use. Gastrointestinal: Soft, nontender, non-distended, no palpable masses. No guarding or rebound tenderness. Peristalsis present. Extremities: Symmetrical, no significant deformities. No edema, no cyanosis, no clubbing. 2+ radial pulse bilaterally, 2+ posterior tibial pulse bilaterally. Neuro: A&O x 3. No focal deficits observed. Conversant, moving all extremities. No overt cerebellar signs/incoordination. Psychiatric: Cooperative, appropriate affect. Results: Labs 08/30/25 08:44 08/30/25 08:44 Labs: Short CBC 08/30/25 Range/Units 08:44 WBC 5.2 (3.8-10.6) Thou/mm3 Hgb 12.7 L (13.5-16.0) g/dL Hct 36.9 L (41.0-53.0) % Plt Count 68 L (140-440) Thou/mm3 BMP 08/30/25 08:44 Sodium 143 Potassium 3.2 L Chloride 102 Carbon Dioxide 29.2 BUN 7 L Creatinine 1.0 Glucose 189 H Calcium 8.5 Liver Function 08/30/25 Range/Units 08:44 Total Bilirubin 6.5 H (0.3-1.2) mg/dL AST 177 H (0-34) U/L ALT 58 H (10-49) U/L Alkaline Phosphatase 347 H (46-116) U/L Albumin 3.5 (3.5-5.0) gm/dL Urine 08/30/25 Range/Units 09:00 Urine Color Yellow (Lt Yel-Yel) Urine Clarity Clear (Clear/Hazy) Urine pH 6.5 (5.0-7.0) Ur Specific [place] 1.016 (1.001-1.035) Urine Protein Negative (Neg - Trace) Urine Glucose (UA) 4+ A (Negative) Quality Measures Quality Measures none Medications Home Medications and Allergies Home Medications ?Medication ?Instructions ?Recorded ?Confirmed ?Type cholecalciferol (vitamin D3) 1,250 50,000 unit PO QWEE K 07/25/24 08/30/25 History mcg (50,000 unit) capsule empagliflozin 25 mg tablet 25 mg PO QDAY 07/25/2408/08 History (Jardiance) furosemide 40 mg tablet 40 mg PO QDAY 07/25/2408/30 History spironolactone 25 mg tablet 25 mg PO 1XD 07/25/2408/08 History lactulose 10 gram/15 mL oral syrup 10 g PO TID 5 08/30/25 History pantoprazole 40 mg tablet,delayed 40 mg PO BID 5 08/30/25 History release (Protonix) Allergies Allergy/AdvReac Type Severity Reaction Status Date / Time No Known Allergies Allergy Verified 08/30/25 08:13 Visit Medications Acetaminophen (Acetaminophen 325 Mg Tablet) 650 mg PO Q6H PRN PRN Reason: PAIN SCALE 1-3 (mild Stop: 09/29/25 14:57 Pantoprazole Sodium (Protonix/Ns 80mg Iv Premix) 80 mg in 100 mls @ 10 mls/hr IV X1 ONE Stop: 08/30/25 20:50 Last Infusion: 08/30/25 14:43 Dose: Infused Octreotide Acetate 1,000 mcg/ (Sodium Chloride) 102 mls @ 5.1 mls/hr IV .Q20H YOAN; Protocol Stop: 08/31/25 07:14 Last Infusion: 08/30/25 14:36 Dose: 50 mcg/hr, 5.1 mls/hr Octreotide Acetate 1,000 mcg/ (Sodium Chloride) 102 mls @ 5.1 mls/hr IV .Q20H YOAN; Protocol Stop: 09/04/25 11:59 Ceftriaxone Sodium/Dextrose (Rocephin/D5w 1gm Iv Premix) 1 gm in 50 mls @ 100 mls/hr IV QDAY YOAN Stop: 09/06/25 15:03 Last Admin: 08/30/25 15:49 Dose: 100 mls/hr Melatonin (Melatonin 3 Mg Tablet) 6 mg PO HS YOAN Stop: 09/29/25 20:59 Ondansetron HCl (Ondansetron Inj 2 Mg/Ml Inj 2 Ml) 4 mg IVP Q6H PRN; Protocol PRN Reason: NAUSEA OR VOMITING Stop: 09/29/25 14:57 Pantoprazole Sodium (Pantoprazole Inj 40 Mg Vial) 40 mg IVP BID YOAN Stop: 09/30/25 08:59 Discontinued Medications Pantoprazole Sodium (Protonix/Ns 80mg Iv Premix) 80 mg in 100 mls @ 400 mls/hr IV X1 ONE Stop: 08/30/25 11:29 Last Infusion: 08/30/25 11:35 Dose: Infused Potassium Chloride (Kcl Ivpb) 10 meq in 100 mls @ 100 mls/hr IV STAT STA Stop: 08/30/25 14:35 Last Infusion: 08/30/25 15:49 Dose: Infused Octreotide Acetate (Octreotide Acet Inj 50 Mcg/Ml Vial) 50 mcg IV X1 ONE Stop: 08/30/25 10:52 Last Admin: 08/30/25 11:22 Dose: 50 mcg Assessment & Plan Plan Patient is a 49-year-old M with a PMH of 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 Patient was admitted for the work-up and management of GI bleed from hematemesis in the setting of known history of cirrhosis and esophageal varices. #Decompensated liver cirrhosis #GI bleed, likely upper and 2/2 esophageal varices i/s/o cirrhosis #Hx of esophageal varices #Hx of cirrhosis 2/2 to ETOH #?Acute Calculous Cholecystitis per imaging findings however pt non TTP Patient presented on 08/30 with a chief complaint of a single episode of hematemesis producing tejas, red, liquid vomitus Admission Hgb 12.7, platelet count 68, total bilirubin 6.5, AST 177 08/30 CTAP showed cirrhosis with markedly abnormal heterogeneous radiodensities and multiple low-density lesions throughout the liver, mild to moderate ascites, esophageal varices, and perigastric varices On home propanolol 10 mg BID, spironolactone 25 mg QD, Protonix 40 mg BID, Lasix 40 mg QD Significant drinking history: drank an average of 12 beers per day from the age of 29 to 47 years old (quit 2 years ago) MELD-Na Score: 16 (<2% estimated 90-day mortality) Dx: -Pending upper endoscopy, showed ___ Rx: -Octreotide gtt w/ blood glucose checks Q1HR -Protonix 40 mg IV BID -Rocephin 1 g IV QD -GI consulted, appreciate recommendations #T2DM 08/30 admission blood glucose 189 On home Jardiance 25 mg QD Dx: -Hemoglobin A1c ordered, ___ Rx: -Monitor blood glucose -Will start insulin sliding scale if blood glucose remain uncontrolled Hospital Management: Disposition: Tele Diet: NPO GI Prophylaxis: Protonix Bowel Prophylaxis: None DVT Prophylaxis: SCDs CODE STATUS: Full Code I have examined the patient and conferred with my attending, Dr. Velez, and my senior resident, Dr. Hunt, regarding them. Edgar Nobles DO PGY-1 Internal Medicine Attending Provider Attestation/Addendum I or my resident physicians have discussed care with the ED physician and I have made the decision to admit. I have discussed and was present for the essential components of the history, physical examination, diagnosis, and treatment plan with the resident. I agree with the patient's care as documented by the resident and amended herein by me. John Velez DO. Although this document has been carefully reviewed, there may still be some phonetic and other typographical errors. These errors are purely grammatical due to imperfections in the software program and should not be construed in any way to compromise the substance of the patient's medical care during this visit. Patient seen and evaluated in the ED. Patient is a 49-year-old male with a significant past medical history of liver cirrhosis secondary to EtOH, grade 3 esophageal varices, DM2 who presented to the ED for hematemesis which began on the morning of admission. Patient subsequently admitted for upper GI bleed In the ED, vital signs were stable, patient afebrile, hemoglobin 12.7, platelet count 68, potassium 3.2, T. bili 6.5, AST 177, ALT 58, alk phos 347. Urinalysis demonstrating 4+ glucose. Abdominal ultrasound demonstrated cholelithiasis and a thickened gallbladder wall however in setting of ascites, CT abdomen and pelvis significant for cirrhosis, splenomegaly, ascites, esophageal varices, gastritis, hepatic colopathy, and MRCP was performed as well demonstrating a hydropic gallbladder with mild thickening and innumerable 1 to 2 mm choleliths. Acute cholecystitis was also on the differential. Gastroenterology was consulted in the ED. Patient admitted to acute telemetry, started on diltiazem drip, ceftriaxone for SBP prophylaxis as well as Protonix 40 mg IV twice daily. Gastroenterology has been consulted, EGD will be performed, appreciate additional specialist recommendations. Patient stable for now, will continue to monitor closely
[2025-08-30 18:00] VITALS: BP 139/79; PULSE 82; RESP 16; TEMP 37.1; O2SAT 94
[2025-08-30 20:00] VITALS: BP 141/68; PULSE 79; PULSE 92; RESP 19; TEMP 36.4; O2SAT 97
--- NOTE | 2025-08-30 20:06 | PD.IMCONS ---
HPI Data of Consult Requesting Physician: Ja Velez DO Primary Care Provider: Macario Muñoz Consult Narrative Reason for consult: hematemesis History of present illness: 49 years old male present to the emergency room with hematemesis He stopped drinking alcohol 2 years ago Abdominal ultrasound show today cholelithiasis MRCP shows portosystemic collaterals hydropic gallbladder ascites and no choledocholithiasis cc:: cc: Ja Velez DO Review of Systems Review of Systems Systems Reviewed: All systems reviewed, normal except as documented Past Medical History Surgical History OTHER SURGICAL HX: As in the history of present illness Meds Home Medications and Allergies Home Medications ?Medication ?Instructions ?Recorded ?Confirmed ?Type cholecalciferol (vitamin D3) 1,250 50,000 unit PO QWEEK 07/25/24 08/30/25 History mcg (50,000 unit) capsule empagliflozin 25 mg tablet 25 mg PO QDAY 07/25/24 08/30/25 History (Jardiance) furosemide 40 mg tablet 40 mg PO QDAY 07/25/24 08/30/25 History spironolactone 25 mg tablet 25 mg PO 1XD 07/25/24 08/30/25 History lactulose 10 gram/15 mL oral syrup 10 g PO TID 02/26/25 08/30/25 History pantoprazole 40 mg tablet,delayed 40 mg PO BID 02/26/25 08/30/25 History release (Protonix) Allergies Allergy/AdvReac Type Severity Reaction Status Date / Time No Known Allergies Allergy Verified 08/30/25 08:13 Exam Vital Signs Temp Pulse Resp BP Pulse Ox O2 Del Method 98.7 F 82 16 139/79 H 94 L Room Air 08/30/25 18:00 08/30/25 18:00 08/30/25 18:00 08/30/25 18:00 08/30/25 18:00 08/30/25 18:00 Constitutional Comments: Chronically ill-appearing Routine Respiratory Exam Comments: Normal to auscultation Routine Abdominal Exam Comments: Soft nontender positive bowel sounds positive ascites Results Labs 09/01/25 05:30 09/01/25 05:30 Labs: Short CBC 08/30/25 Range/Units 08:44 WBC 5.2 (3.8-10.6) Thou/mm3 Hgb 12.7 L (13.5-16.0) g/dL Hct 36.9 L (41.0-53.0) % Plt Count 68 L (140-440) Thou/mm3 BMP 08/30/25 08:44 Sodium 143 Potassium 3.2 L Chloride 102 Carbon Dioxide 29.2 BUN 7 L Creatinine 1.0 Glucose 189 H Calcium 8.5 Liver Function 08/30/25 Range/Units 08:44 Total Bilirubin 6.5 H (0.3-1.2) mg/dL AST 177 H (0-34) U/L ALT 58 H (10-49) U/L Alkaline Phosphatase 347 H (46-116) U/L Albumin 3.5 (3.5-5.0) gm/dL Urine 08/30/25 Range/Units 09:00 Urine Color Yellow (Lt Yel-Yel) Urine Clarity Clear (Clear/Hazy) Urine pH 6.5 (5.0-7.0) Ur Specific [place] 1.016 (1.001-1.035) Urine Protein Negative (Neg - Trace) Urine Glucose (UA) 4+ A (Negative) Assessment and Plan Additional Assessment & Plan Additional Plan: # Hematemesis in the setting of cirrhotic liver disease due to alcohol # Cirrhotic liver disease secondary to alcohol # Cholelithiasis Plan Agree with IV Protonix and IV octreotide infusion after discussion with the ER physician Dr. Canales Consent obtained for fiberoptic esophagogastroduodenoscopy biopsy possible therapeutic intervention under intravenous moderate sedation Serial CBC Will monitor abdominal pain in the setting of cholelithiasis Will follow the patient Thank you very much for the opportunity to participate in the care of this patient
[2025-08-31] VITALS (16 sets, daily range): BP systolic 110–157; BP diastolic 74–108; PULSE 71–108; RESP 12–20; TEMP 35.9–36.6; O2SAT 95–100; BMI 26.3
[2025-08-31 05:34] LABS: Basophils # (Auto) 0.0 Thou/mm3 (0.0-0.2); Basophils % (Auto) 1 % (0-2.5); Eosinophils # (Auto) 0.1 Thou/mm3 (0.0-0.5); Eosinophils % (Auto) 3 % (0-10); Hematocrit 32.3 % (41.0-53.0); Hemoglobin 11.0 g/dL (13.5-16.0); Immature Granulocytes Auto 0.03 Thou/mm3 (0.00-0.00); Lymphocytes # (Auto) 0.3 Thou/mm3 (1.0-4.8); Lymphocytes % (Auto) 10 % (10-50); Mean Corpuscular HGB Conc 34.1 g/dl (31.0-37.0); Mean Corpuscular Hemoglobin 34.2 pg (25.0-35.0); Mean Corpuscular Volume 100 fL (80-100); Monocytes # (Auto) 0.4 Thou/mm3 (0.0-0.8); Monocytes % (Auto) 13 % (0-12); Neutrophils # (Auto) 2.3 Thou/mm3 (1.8-7.7); Neutrophils % (Auto) 73 % (37-80); Nucleated Red Blood Cell # 0.00 Thou/mm3 (0.00-0.00); Nucleated Red Blood Cell % 0 /100 WBC (0); RDW Standard Deviation 55.1 fL (35.1-43.9); Red Blood Count 3.22 Miln/mm3 (4.50-5.90); White Blood Count 3.1 Thou/mm3 (3.8-10.6)
[2025-08-31 06:21] LABS: Glucose Estimated Average 126 mg/dL (80-131); Hemoglobin A1C 6.0 % Hgb (4.8-6.0)
[2025-08-31 06:24] LABS: Alanine Aminotransferase 44 U/L (10-49); Albumin, Serum 2.9 gm/dL (3.5-5.0); Albumin/Globulin Ratio 0.8 (1.2-2.2); Anion Gap 11 (7-16); Aspartate Amino Transferase 133 U/L (0-34); BUN/Creatinine Ratio 14 Ratio (12-20); Bilirubin,Total 7.0 mg/dL (0.3-1.2); Blood Urea Nitrogen 14 mg/dL (9-23); Calcium 8.6 mg/dL (8.3-10.6); Calcium (Corrected) 9.5 mg/dL (8.5-10.1); Carbon Dioxide 29.0 mMol/L (20.0-31.0); Chloride 101 mMol/L (98-107); Creatinine (Component) 1.0 mg/dL (0.6-1.3); Estimated Creatinine Clearance 88.4 mL/min (>60); Globulin 3.7 gm/dL (2.3-3.5); Glucose 176 mg/dL (74-106); Osmolality,Calculated 285 (275-295); Potassium 3.2 mMol/L (3.4-5.1); Sodium 141 mMol/L (136-145); Total Protein 6.6 gm/dL (5.7-8.2); eGFR > 60 See Note
[2025-08-31 06:39] LABS: Platelet Count 49 Thou/mm3 (140-440)
[2025-08-31 06:55] LABS: Alkaline Phosphatase 218 U/L (46-116)
[2025-08-31] MEDS: OCTREOTIDE ACET INJ 1,000 MCG in SODIUM CHLORIDE 0.9% 100 ML 5.1 MCG IV (07:33)
[2025-08-31] MEDS: cefTRIAXone/D5w 1gm IV premix 1 GM/50 ML BAG IV (08:59)
[2025-08-31 10:24] LABS: Slide Review Platelets confirmed
--- NOTE | 2025-08-31 10:24 | ESPR_ITS ---
<Statement entered by Felisa Hunt MD - 08/31/25 15:43> Patient was seen and examined by me personally. I have directly supervised and reviewed documentation by the team resident and agree with its findings with any exceptions or additional findings as below. Plan of care was discussed with the attending, Dr. Valentin. Patient seen this morning doing well, denied any complaints, including any abdominal pain, nausea, or vomiting. No episodes of hematemesis. Hgb drop from 12.7 to 11.0 however all cell lines went down as well. Vitals remain stable. Potassium 3.2 and will be repleted with 40 mEq tonight after EGD completed. Continue with octreotide drip, pantoprazole 40 mg BID, and ceftriaxone 1 g qday for bacterial translocative prophylaxis. Felisa Hunt, PGY-3 Documentation for date of: 08/31/25 Subjective Subjective Interval history: No overnight events. Patient was examined at bedside; they appear A&Ox3 and in NAD. Vitals/labs today significant for Hgb 12.7->11.0, platelet count 68->49, potassium 3.2, total bilirubin 6.5->7.0. Physical exam was non-contributory. 08/30 UCx grew GPCs but this may not be suggestive of true UTI due to patient's lack of urinary symptoms. Hemoglobin A1c from this admission has resulted at 6.0. Patient remains scheduled for upper endoscopy to evaluate for probable bleeding esophageal varices or other etiologies that may explain his episode of hematemesis. No changes in management today. Exam Vital Signs Temp Pulse Resp BP Pulse Ox O2 Del Method 97.7 F 79 14 135/83 H 95 Room Air 08/31/25 08:00 08/31/25 08:00 08/31/25 08:00 08/31/25 08:00 08/31/25 08:00 08/31/25 08:00 Narrative Exam General: Well-developed and well-nourished male in no acute distress. Skin: Warm, dry, intact, no obvious rash. Head: Normocephalic, atraumatic. Eyes: Scleral icterus. EOMI. Vision grossly intact. Ears: No ear pain, no ear discharge, Hearing grossly intact. Nose: No nasal discharge. Mouth/Throat: Oral mucosa moist. No obvious lesions in oropharynx. Cardiovascular: Regular rate and normal rhythm, no murmur, no JVD or carotid bruits. +S1/S2. Respiratory: Bilateral lungs are clear to auscultation, respirations unlabored, no crackles, no wheezing. No accessory muscle use. Gastrointestinal: Soft, nontender, non-distended, no palpable masses. No guarding or rebound tenderness. Peristalsis present. Extremities: Symmetrical, no significant deformities. No edema, no cyanosis, no clubbing. 2+ radial pulse bilaterally, 2+ posterior tibial pulse bilaterally. Neuro: A&O x 3. No focal deficits observed. Conversant, moving all extremities. No overt cerebellar signs/incoordination. Psychiatric: Cooperative, appropriate affect. Objective Labs 09/01/25 05:30 09/01/25 05:30 Labs: Laboratory Results - last 24 hr 08/30/25 08/30/25 08/30/25 08:44 09:00 11:00 WBC RBC Hgb Hct MCV MCH MCHC RDW Std Deviation Plt Count Neut % (Auto) Lymph % (Auto) [place] % (Auto) Eos % (Auto) Baso % (Auto) Neut # (Auto) Lymph # (Auto) [place] # (Auto) Eos # (Auto) Baso # (Auto) Immature Gran # (Auto) Absolute Nucleated RBC Immature Gran % Nucleated RBC % Sodium Potassium Chloride Carbon Dioxide Anion Gap BUN Creatinine Estim Creat Clear Calc eGFR BUN/Creatinine Ratio Glucose Estimated Ave Glu mg/dL Hemoglobin A1c Calculated Osmolality Calcium Corrected Calcium Total Bilirubin AST ALT Alkaline Phosphatase Total Protein Albumin Globulin Albumin/Globulin Ratio Ur Collection Type Clean Catch Urine Color Yellow Urine Clarity Clear Urine pH 6.5 Ur Specific [place] 1.016 Urine Protein Negative Urine Glucose (UA) 4+ A Urine Ketones Negative Urine Blood Negative Urine Nitrite Negative Urine Bilirubin Negative Urine Urobilinogen (Auto) Negative Ur Leukocyte Esterase Negative Urine RBC 2 Urine WBC 0 Ur Squamous Epith Cells < 1 Urine Bacteria None Misc Test Result Platelets confirmed Blood Type O Positive Antibody Screen NEGATIVE Blood Bank Wristband ID Yes 08/31/25 04:23 WBC 3.1 L D RBC 3.22 L Hgb 11.0 L Hct 32.3 L MCV 100 MCH 34.2 MCHC 34.1 RDW Std Deviation 55.1 H Plt Count 49 L D Neut % (Auto) 73 Lymph % (Auto) 10 [place] % (Auto) 13 H Eos % (Auto) 3 Baso % (Auto) 1 Neut # (Auto) 2.3 Lymph # (Auto) 0.3 L [place] # (Auto) 0.4 Eos # (Auto) 0.1 Baso # (Auto) 0.0 Immature Gran # (Auto) 0.03 H Absolute Nucleated RBC 0.00 Immature Gran % 1 H Nucleated RBC % 0 Sodium 141 Potassium 3.2 L Chloride 101 Carbon Dioxide 29.0 Anion Gap 11 BUN 14 Creatinine 1.0 Estim Creat Clear Calc 88.4 eGFR > 60 BUN/Creatinine Ratio [address] Glu mg/dL 126 Hemoglobin A1c 6.0 Calculated Osmolality 285 Calcium 8.6 Corrected Calcium 9.5 Total Bilirubin 7.0 H D AST 133 H ALT 44 Alkaline Phosphatase 218 H D Total Protein 6.6 Albumin 2.9 L D Globulin 3.7 H Albumin/Globulin Ratio 0.8 L Ur Collection Type Urine Color Urine Clarity Urine pH Ur Specific [place] Urine Protein Urine Glucose (UA) Urine Ketones Urine Blood Urine Nitrite Urine Bilirubin Urine Urobilinogen (Auto) Ur Leukocyte Esterase Urine RBC Urine WBC Ur Squamous Epith Cells Urine Bacteria Misc Test Result Platelets confirmed Blood Type Antibody Screen Blood Bank Wristband ID Quality Measures Quality Measures none Assessment & Plan Assessment Current Active Medications: Generic Name Dose Route Start Last Admin Trade Name Freq PRN Reason Stop Dose Admin Acetaminophen 650 mg 08/30/25 14:58 Acetaminophen 325 Mg Tablet PO 09/29/25 14:57 Q6H PRN PAIN SCALE 1-3 (mild Octreotide Acetate 1,000 mcg/ 102 mls @ 5.1 mls/hr 08/31/25 07:15 08/31/25 07:33 Sodium Chloride IV 09/04/25 11:14 50 mcg/hr .Q20H YOAN 5.1 mls/hr Protocol Administration 50 MCG/HR Ceftriaxone Sodium/Dextrose 1 gm in 50 mls @ 100 mls/hr 08/30/25 15:04 08/31/25 08:59 Rocephin/D5w 1gm Iv Premix IV 09/06/25 15:03 100 mls/hr QDAY YOAN Administration Melatonin 6 mg 08/30/25 21:00 08/30/25 20:17 Melatonin 3 Mg Tablet PO 09/29/25 20:59 Not Given HS YOAN Ondansetron HCl 4 mg 08/30/25 14:58 Ondansetron Inj 2 Mg/Ml Inj 2 Ml IVP 09/29/25 14:57 Q6H PRN NAUSEA OR VOMITING Protocol Pantoprazole Sodium 40 mg 08/31/25 09:00 08/31/25 08:59 Pantoprazole Inj 40 Mg Vial IVP 09/30/25 08:59 40 mg BID YOAN Administration Plan Patient is a 49-year-old M with a PMH of 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 Patient was admitted for the work-up and management of GI bleed from hematemesis in the setting of known history of cirrhosis and esophageal varices. #Decompensated liver cirrhosis #GI bleed, likely upper and 2/2 esophageal varices i/s/o cirrhosis #Hx of esophageal varices #Hx of cirrhosis 2/2 to EtOH #Hyperbilirubinemia #Thrombocytopenia #?Acute calculous cholecystitis (per imaging findings, however patient non-TTP) Patient presented on 08/30 with a chief complaint of a single episode of hematemesis producing tejas, red, liquid vomitus Admission Hgb 12.7, platelet count 68, total bilirubin 6.5, AST 177 08/30 CTAP showed cirrhosis with markedly abnormal heterogeneous radiodensities and multiple low-density lesions throughout the liver, mild to moderate ascites, esophageal varices, and perigastric varices On home propanolol 10 mg BID, spironolactone 25 mg QD, Protonix 40 mg BID, Lasix 40 mg QD Significant drinking history: drank an average of 12 beers per day from the age of 29 to 47 years old (quit 2 years ago) MELD-Na Score: 16 (<2% estimated 90-day mortality) Dx: -Pending upper endoscopy, showed ___ Rx: -Octreotide gtt w/ blood glucose checks Q1HR -Protonix 40 mg IV BID -Rocephin 1 g IV QD [08/30--] -GI consulted, appreciate recommendations #Non-insulin dependent T2DM, in remission 08/30 admission blood glucose 189 Last HgbA1c on 07/23/24 was 6.9 On home Jardiance 25 mg QD Dx: -Hemoglobin A1c ordered, 6.0 Rx: -Monitor blood glucose -Will start insulin sliding scale if blood glucose remain uncontrolled #Asymptomatic bacteruria 08/30 UCx showed GPC, possibly a contaminant as patient is asymptomatic Rx: -Rocephin 1 g IV QD [08/30--] Hospital Management: Disposition: Tele Diet: NPO GI Prophylaxis: Protonix Bowel Prophylaxis: None DVT Prophylaxis: SCDs CODE STATUS: Full Code I have examined the patient and conferred with my attending, Dr. Valentin, and my senior resident, Dr. Hunt, regarding them. Edgar Nobles DO PGY-1 Internal Medicine Attending Provider Attestation/Addendum I have examined the patient, reviewed labs and imaging findings, discussed the case with the resident(s), and reviewed entered orders. I agree with the plan of care as outlined in this note, with these additional summaries/recommendations: Patient seen at bedside. No acute overnight events. Patient admitted for GI bleed likely upper in the setting of cirrhosis and previous history of esophageal varices. Continue octreotide gtt., Protonix, and IV Rocephin. Gastroenterology following with plans for EGD today. Continue to hold chemical anticoagulation. Transfuse for hemoglobin less than 7, platelets less than 50,000, or INR greater than 1.5. Patient has underlying cirrhosis secondary to alcohol use and can follow-up outpatient for continued management and vaccine series. Continue insulin sliding scale for diabetes mellitus type 2 with Accu- Cheks. Target blood sugar of 140-180 while hospitalized. Urinalysis suggestive of of UTI and urine culture preliminarily showing GPC although patient currently not reporting urinary symptoms and likely contaminant. No need for treatment at this time although patient is already receiving IV Rocephin. There was suspicion of acute calculous cholecystitis on imaging although findings likely related to underlying cirrhosis and no evidence of right upper quadrant pain at this time. Patient updated on the plan and in agreement. All questions answered satisfaction. Please see residents note for additional details and management. Dr. Barbie MD
--- NOTE | 2025-08-31 18:02 | SUR.PHASEI ---
Transferred to room 260 via [facility]. Resting with eyes open. Responding to questions and commands appropriately. No c/o pain or discomfort. No s/o distress.
[2025-08-31] MEDS: MELATONIN 3 MG TABLET 6 MG PO (20:09)
[2025-08-31] MEDS: POTASSIUM CHLORIDE 10% 20 MEQ/15 ML UDC 40 MEQ PO (20:09)
[2025-09-01] VITALS (7 sets, daily range): BP systolic 120–141; BP diastolic 72–87; PULSE 65–93; RESP 12–25; TEMP 36.3–37.1; O2SAT 95–97; BMI 27.1
[2025-09-01] MEDS: OCTREOTIDE ACET INJ 1,000 MCG in SODIUM CHLORIDE 0.9% 100 ML 5.1 MCG IV ×2 (02:54→22:36)
[2025-09-01 05:54] LABS: Basophils # (Auto) 0.0 Thou/mm3 (0.0-0.2); Basophils % (Auto) 1 % (0-2.5); Eosinophils # (Auto) 0.1 Thou/mm3 (0.0-0.5); Eosinophils % (Auto) 4 % (0-10); Hematocrit 31.8 % (41.0-53.0); Hemoglobin 11.0 g/dL (13.5-16.0); Immature Granulocytes Auto 0.03 Thou/mm3 (0.00-0.00); Lymphocytes # (Auto) 0.4 Thou/mm3 (1.0-4.8); Lymphocytes % (Auto) 12 % (10-50); Mean Corpuscular HGB Conc 34.6 g/dl (31.0-37.0); Mean Corpuscular Hemoglobin 34.7 pg (25.0-35.0); Mean Corpuscular Volume 100 fL (80-100); Monocytes # (Auto) 0.4 Thou/mm3 (0.0-0.8); Monocytes % (Auto) 12 % (0-12); Neutrophils # (Auto) 2.2 Thou/mm3 (1.8-7.7); Neutrophils % (Auto) 71 % (37-80); Nucleated Red Blood Cell # 0.00 Thou/mm3 (0.00-0.00); Nucleated Red Blood Cell % 0 /100 WBC (0); RDW Standard Deviation 53.9 fL (35.1-43.9); Red Blood Count 3.17 Miln/mm3 (4.50-5.90); White Blood Count 3.0 Thou/mm3 (3.8-10.6)
[2025-09-01 06:31] LABS: Alanine Aminotransferase 34 U/L (10-49); Albumin, Serum 2.7 gm/dL (3.5-5.0); Albumin/Globulin Ratio 0.7 (1.2-2.2); Alkaline Phosphatase 171 U/L (46-116); Anion Gap 9 (7-16); Aspartate Amino Transferase 110 U/L (0-34); BUN/Creatinine Ratio 12 Ratio (12-20); Bilirubin,Total 7.3 mg/dL (0.3-1.2); Blood Urea Nitrogen 13 mg/dL (9-23); Calcium 8.3 mg/dL (8.3-10.6); Calcium (Corrected) 9.3 mg/dL (8.5-10.1); Carbon Dioxide 28.2 mMol/L (20.0-31.0); Chloride 103 mMol/L (98-107); Creatinine (Component) 1.1 mg/dL (0.6-1.3); Estimated Creatinine Clearance 80.3 mL/min (>60); Globulin 3.8 gm/dL (2.3-3.5); Glucose 154 mg/dL (74-106); Osmolality,Calculated 282 (275-295); Potassium 3.6 mMol/L (3.4-5.1); Sodium 140 mMol/L (136-145); Total Protein 6.5 gm/dL (5.7-8.2); eGFR > 60 See Note
[2025-09-01 06:53] LABS: Platelet Count 49 Thou/mm3 (140-440)
[2025-09-01] MEDS: cefTRIAXone/D5w 1gm IV premix 1 GM/50 ML BAG IV (08:04)
[2025-09-01] MEDS: SPIRONOLACTONE 25 MG TABLET 50 MG PO (08:05)
[2025-09-01 10:36] LABS: Slide Review Platelets confirmed
--- NOTE | 2025-09-01 10:39 | PC.SS ---
VIDEO PHOTOGRAPHER conducted bedside contact with the patient conduct initial assessment and to discuss discharge planning.? VIDEO PHOTOGRAPHER utilized salvage engineering technician to assist with discussion.? Patient confirmed demographic information.? Patient resides at home with spouse, Mariposa Tubbs .? Patient does not utilize any form of DME to assist with ambulation.? Patient does not utilize home oxygen.? Patient describes the ability to complete ADL?s independently.? Patient identified spouse, Mariposa Tubbs; as medical surrogate decision maker.? Patient?s PCP is Macario Farooq.? Patient does not participate with dialysis.? Patient does not possess any specialty providers.? Patient possesses history of diabetes.? Plan is for the patient to return home at the time of discharge.? Family will provide transportation on behalf of the patient.? No further discharge needs identified by the patient.? No further intervention required at this time, licensed master social worker will be available to address any further concerns.? Next of Kin: Mariposa Xiongenas D/C Plan: Home
--- NOTE | 2025-09-01 10:42 | PC.SS ---
Patient's physical address is: [address]
--- NOTE | 2025-09-01 12:07 | ESPR_ITS ---
<Statement entered by Felisa Hunt MD - 09/02/25 07:29> Patient was seen and examined by me personally. I have directly supervised and reviewed documentation by the team resident and agree with its findings with any exceptions or additional findings as below. Plan of care was discussed with the attending, Dr. Valentin. Felisa Hunt, PGY-3 Documentation for date of: 09/01/25 Subjective Subjective Interval history: No overnight events. Patient was examined at bedside; they appear A&Ox3 and in NAD. Vitals/labs today significant for total bilirubin 7.0->7.3. Physical exam was non-contributory. Patient is s/p 08/31 EGD which showed grade II esophageal varices with stigmata of recent bleeding which were banded and erythematous gastric mucosa. He has been on octreotide gtt since 08/31 and will need to be continued on it until 09/04. Otherwise, he has been started on Aldactone 50 mg PO QD and lactulose 10 mg PO TID. Exam Vital Signs Temp Pulse Resp BP Pulse Ox O2 Del Method O2 Flow Rate 97.6 F 93 25 H 121/82 95 Room Air 3 09/01/25 08:00 09/01/25 08:05 09/01/25 08:00 09/01/25 08:05 09/01/25 08:00 09/01/25 08:00 08/31/25 17:25 Narrative Exam General: Well-developed and well-nourished male in no acute distress. Skin: Warm, dry, intact, no obvious rash. Head: Normocephalic, atraumatic. Eyes: Scleral icterus. EOMI. Vision grossly intact. Ears: No ear pain, no ear discharge, Hearing grossly intact. Nose: No nasal discharge. Mouth/Throat: Oral mucosa moist. No obvious lesions in oropharynx. Cardiovascular: Regular rate and normal rhythm, no murmur, no JVD or carotid bruits. +S1/S2. Respiratory: Bilateral lungs are clear to auscultation, respirations unlabored, no crackles, no wheezing. No accessory muscle use. Gastrointestinal: Soft, nontender, non-distended, no palpable masses. No guarding or rebound tenderness. Peristalsis present. Extremities: Symmetrical, no significant deformities. No edema, no cyanosis, no clubbing. 2+ radial pulse bilaterally, 2+ posterior tibial pulse bilaterally. Neuro: A&O x 3. No focal deficits observed. Conversant, moving all extremities. No overt cerebellar signs/incoordination. Psychiatric: Cooperative, appropriate affect. Objective Labs 09/02/25 06:15 09/01/25 05:30 Labs: Laboratory Results - last 24 hr 09/01/25 05:30 WBC 3.0 L RBC 3.17 L Hgb 11.0 L Hct 31.8 L MCV 100 MCH 34.7 MCHC 34.6 RDW Std Deviation 53.9 H Plt Count 49 L Neut % (Auto) 71 Lymph % (Auto) 12 [place] % (Auto) 12 Eos % (Auto) 4 Baso % (Auto) 1 Neut # (Auto) 2.2 Lymph # (Auto) 0.4 L [place] # (Auto) 0.4 Eos # (Auto) 0.1 Baso # (Auto) 0.0 Immature Gran # (Auto) 0.03 H Absolute Nucleated RBC 0.00 Immature Gran % 1 H Nucleated RBC % 0 Sodium 140 Potassium 3.6 Chloride 103 Carbon Dioxide 28.2 Anion Gap 9 BUN 13 Creatinine 1.1 Estim Creat Clear Calc 80.3 eGFR > 60 BUN/Creatinine Ratio 12 Glucose 154 H Calculated Osmolality 282 Calcium 8.3 Corrected Calcium 9.3 Total Bilirubin 7.3 H AST 110 H ALT 34 Alkaline Phosphatase 171 H D Total Protein 6.5 Albumin 2.7 L Globulin 3.8 H Albumin/Globulin Ratio 0.7 L Misc Test Result Platelets confirmed Quality Measures Quality Measures none Assessment & Plan Assessment Current Active Medications: Generic Name Dose Route Start Last Admin Trade Name Oskarq PRN Reason Stop Dose Admin Acetaminophen 650 mg 08/30/25 14:58 Acetaminophen 325 Mg Tablet PO 09/29/25 14:57 Q6H PRN PAIN SCALE 1-3 (mild Octreotide Acetate 1,000 mcg/ 102 mls @ 5.1 mls/hr 08/31/25 07:15 09/01/25 02:54 Sodium Chloride IV 09/04/25 11:14 50 mcg/hr .Q20H YOAN 5.1 mls/hr Protocol Administration 50 MCG/HR Ceftriaxone Sodium/Dextrose 1 gm in 50 mls @ 100 mls/hr 08/30/25 15:04 09/01/25 08:04 Rocephin/D5w 1gm Iv Premix IV 09/06/25 15:03 100 mls/hr QDAY YOAN Administration Lactulose 10 gm 09/01/25 14:00 Lactulose Syrup 20 Gm/30 Ml Udc PO 10/01/25 13:59 TID YOAN Melatonin 6 mg 08/30/25 21:00 08/31/25 20:09 Melatonin 3 Mg Tablet PO 09/29/25 20:59 6 mg HS YOAN Administration Ondansetron HCl 4 mg 08/30/25 14:58 Ondansetron Inj 2 Mg/Ml Inj 2 Ml IVP 09/29/25 14:57 Q6H PRN NAUSEA OR VOMITING Protocol Pantoprazole Sodium 40 mg 09/01/25 09:00 09/01/25 08:05 Pantoprazole Inj 40 Mg Vial IVP 10/01/25 08:59 40 mg QDAY YOAN Administration Spironolactone 50 mg 09/01/25 09:00 09/01/25 08:05 Spironolactone 25 Mg Tablet PO 10/01/25 08:59 50 mg QDAY YOAN Administration Plan Patient is a 49-year-old M with a PMH of 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 Patient was admitted for the work-up and management of GI bleed from hematemesis in the setting of known history of cirrhosis and esophageal varices. #Decompensated liver cirrhosis #GI bleed, likely upper and 2/2 esophageal varices i/s/o cirrhosis #Hx of esophageal varices #Hx of cirrhosis 2/2 to EtOH #Hyperbilirubinemia #Thrombocytopenia #?Acute calculous cholecystitis (per imaging findings, however patient non-TTP) Patient presented on 08/30 with a chief complaint of a single episode of hematemesis producing tejas, red, liquid vomitus Admission Hgb 12.7, platelet count 68, total bilirubin 6.5, AST 177 08/30 CTAP showed cirrhosis with markedly abnormal heterogeneous radiodensities and multiple low-density lesions throughout the liver, mild to moderate ascites, esophageal varices, and perigastric varices On home propanolol 10 mg BID, spironolactone 25 mg QD, Protonix 40 mg BID, Lasix 40 mg QD Significant drinking history: drank an average of 12 beers per day from the age of 29 to 47 years old (quit 2 years ago) MELD-Na Score: 16 (<2% estimated 90-day mortality) Dx: -08/31 upper endoscopy completed, showed grade II esophageal varices with stigmata of recent bleeding which were banded and erythematous gastric mucosa. Rx: -Octreotide gtt w/ blood glucose checks Q1HR [08/31-09/04] -Protonix 40 mg IV BID -Rocephin 1 g IV QD [08/30--] -Aldactone 50 mg PO QD -Lactulose 10 mg PO TID -GI consulted, appreciate recommendations #Non-insulin dependent T2DM, in remission 08/30 admission blood glucose 189 Last HgbA1c on 07/23/24 was 6.9 On home Jardiance 25 mg QD Dx: -Hemoglobin A1c ordered, 6.0 Rx: -Monitor blood glucose -Will start insulin sliding scale if blood glucose remain uncontrolled #Asymptomatic bacteruria 08/30 UCx showed GPC, possibly a contaminant as patient is asymptomatic Rx: -Rocephin 1 g IV QD [08/30--] Hospital Management: Disposition: Tele Diet: NPO GI Prophylaxis: Protonix Bowel Prophylaxis: None DVT Prophylaxis: SCDs CODE STATUS: Full Code I have examined the patient and conferred with my attending, Dr. Valentin, and my senior resident, Dr. Hunt, regarding them. Edgar Nobles DO PGY-1 Internal Medicine Attending Provider Attestation/Addendum I have examined the patient, reviewed labs and imaging findings, discussed the case with the resident(s), and reviewed entered orders. I agree with the plan of care as outlined in this note, with these additional summaries/recommendations: Patient seen at bedside. No acute overnight events. Patient admitted for upper GI bleed in the setting of cirrhosis and history of esophageal varices. Patient underwent EGD yesterday that revealed grade 2 esophageal varices with stigmata of recent bleeding which were banded, erythematous mucosa in stomach. Per GI we will continue octreotide for a total of 5 days, advance diet as tolerated, daily CBC, and patient will need to follow-up with [facility] clinic in [place] for repeat endoscopic in 4 weeks. Continue octreotide gtt., Protonix, and IV Rocephin. Continue to hold chemical anticoagulation. Transfuse for hemoglobin less than 7, platelets less than 50,000, or INR greater than 1.5. Patient has underlying cirrhosis secondary to alcohol use and can follow-up outpatient for continued management and vaccine series. Continue insulin sliding scale for diabetes mellitus type 2 with Accu-Cheks. Target blood sugar of 140-180 while hospitalized. Urinalysis suggestive of of UTI and urine culture preliminarily showing GPC although patient currently not reporting urinary symptoms and likely contaminant. No need for treatment at this time although patient is already receiving IV Rocephin. There was suspicion of acute calculous cholecystitis on imaging although findings likely related to underlying cirrhosis and no evidence of right upper quadrant pain at this time. Patient updated on the plan and in agreement. All questions answered satisfaction. Please see residents note for additional details and management. Dr. Barbie MD
[2025-09-01] MEDS: LACTULOSE SYRUP 20 GM/30 ML UDC 10 GM PO (14:18)
--- NOTE | 2025-09-01 17:34 | PD.IMPROG ---
Documentation for date of: 09/01/25 Subjective Subjective Interval history: Patient evaluated hemoglobin hematocrit 11.0 and 31.8 Exam Vital Signs Temp Pulse Resp BP Pulse Ox O2 Del Method O2 Flow Rate 97.9 F 69 15 141/86 H 96 Room Air 3 09/01/25 12:00 09/01/25 12:00 09/01/25 12:00 09/01/25 12:00 09/01/25 12:00 09/01/25 12:00 08/31/25 17:25 Objective Labs 09/01/25 05:30 09/01/25 05:30 Labs: Laboratory Results - last 24 hr 09/01/25 05:30 WBC 3.0 L RBC 3.17 L Hgb 11.0 L Hct 31.8 L MCV 100 MCH 34.7 MCHC 34.6 RDW Std Deviation 53.9 H Plt Count 49 L Neut % (Auto) 71 Lymph % (Auto) 12 [place] % (Auto) 12 Eos % (Auto) 4 Baso % (Auto) 1 Neut # (Auto) 2.2 Lymph # (Auto) 0.4 L [place] # (Auto) 0.4 Eos # (Auto) 0.1 Baso # (Auto) 0.0 Immature Gran # (Auto) 0.03 H Absolute Nucleated RBC 0.00 Immature Gran % 1 H Nucleated RBC % 0 Sodium 140 Potassium 3.6 Chloride 103 Carbon Dioxide 28.2 Anion Gap 9 BUN 13 Creatinine 1.1 Estim Creat Clear Calc 80.3 eGFR > 60 BUN/Creatinine Ratio 12 Glucose 154 H Calculated Osmolality 282 Calcium 8.3 Corrected Calcium 9.3 Total Bilirubin 7.3 H AST 110 H ALT 34 Alkaline Phosphatase 171 H D Total Protein 6.5 Albumin 2.7 L Globulin 3.8 H Albumin/Globulin Ratio 0.7 L Misc Test Result Platelets confirmed Impressions Impression: Status post band ligation of the esophageal varices Hypertensive portal gastropathy with mucosal oozing of blood Continue octreotide infusion for total of 5 days Advance diet as tolerated Hemoglobin hematocrit stable since yesterday Assessment & Plan A&P Narrative # Hematemesis in the setting of cirrhotic liver disease due to alcohol # Cirrhotic liver disease secondary to alcohol # Cholelithiasis Plan Agree with IV Protonix and IV octreotide infusion after discussion with the ER physician Dr. Canales Consent obtained for fiberoptic esophagogastroduodenoscopy biopsy possible therapeutic intervention under intravenous moderate sedation Serial CBC Will monitor abdominal pain in the setting of cholelithiasis Will follow the patient Thank you very much for the opportunity to participate in the care of this patient Time Spent With Patient Time: Total time spent is greater than 50% in coordination of care (as documented) at patient's floor/unit and/or counseling patient:
[2025-09-01] MEDS: MELATONIN 3 MG TABLET 6 MG PO (21:14)
[2025-09-02] VITALS (10 sets, daily range): BP systolic 108–132; BP diastolic 60–88; PULSE 67–93; RESP 13–19; TEMP 36.3–37; O2SAT 94–97; BMI 26.8; BMI 26.7
[2025-09-02] MEDS: LACTULOSE SYRUP 20 GM/30 ML UDC 10 GM PO ×3 (05:54→21:48)
[2025-09-02 06:46] LABS: Basophils # (Auto) 0.0 Thou/mm3 (0.0-0.2); Basophils % (Auto) 1 % (0-2.5); Eosinophils # (Auto) 0.1 Thou/mm3 (0.0-0.5); Eosinophils % (Auto) 4 % (0-10); Hematocrit 34.4 % (41.0-53.0); Hemoglobin 11.7 g/dL (13.5-16.0); Immature Granulocytes Auto 0.02 Thou/mm3 (0.00-0.00); Lymphocytes # (Auto) 0.3 Thou/mm3 (1.0-4.8); Lymphocytes % (Auto) 9 % (10-50); Mean Corpuscular HGB Conc 34.0 g/dl (31.0-37.0); Mean Corpuscular Hemoglobin 34.2 pg (25.0-35.0); Mean Corpuscular Volume 101 fL (80-100); Monocytes # (Auto) 0.4 Thou/mm3 (0.0-0.8); Monocytes % (Auto) 10 % (0-12); Neutrophils # (Auto) 2.7 Thou/mm3 (1.8-7.7); Neutrophils % (Auto) 76 % (37-80); Nucleated Red Blood Cell # 0.00 Thou/mm3 (0.00-0.00); Nucleated Red Blood Cell % 0 /100 WBC (0); RDW Standard Deviation 52.4 fL (35.1-43.9); Red Blood Count 3.42 Miln/mm3 (4.50-5.90); White Blood Count 3.6 Thou/mm3 (3.8-10.6)
[2025-09-02 06:49] LABS: Platelet Count 50 Thou/mm3 (140-440)
[2025-09-02 07:15] LABS: Alanine Aminotransferase 36 U/L (10-49); Albumin, Serum 2.9 gm/dL (3.5-5.0); Albumin/Globulin Ratio 0.7 (1.2-2.2); Alkaline Phosphatase 166 U/L (46-116); Anion Gap 10 (7-16); Aspartate Amino Transferase 112 U/L (0-34); BUN/Creatinine Ratio 11 Ratio (12-20); Bilirubin,Total 9.9 mg/dL (0.3-1.2); Blood Urea Nitrogen 11 mg/dL (9-23); Calcium 8.4 mg/dL (8.3-10.6); Calcium (Corrected) 9.3 mg/dL (8.5-10.1); Carbon Dioxide 27.0 mMol/L (20.0-31.0); Chloride 102 mMol/L (98-107); Creatinine (Component) 1.0 mg/dL (0.6-1.3); Estimated Creatinine Clearance 88.4 mL/min (>60); Globulin 3.9 gm/dL (2.3-3.5); Glucose 141 mg/dL (74-106); Osmolality,Calculated 278 (275-295); Potassium 3.5 mMol/L (3.4-5.1); Sodium 139 mMol/L (136-145); Total Protein 6.8 gm/dL (5.7-8.2); eGFR > 60 See Note
[2025-09-02] MEDS: SPIRONOLACTONE 25 MG TABLET 50 MG PO (08:26)
[2025-09-02] MEDS: cefTRIAXone/D5w 1gm IV premix 1 GM/50 ML BAG IV (08:26)
[2025-09-02 10:25] LABS: Slide Review Platelets confirmed
--- NOTE | 2025-09-02 10:42 | PD.IMPROG ---
Documentation for date of: 09/02/25 Subjective Subjective Interval history: Hemoglobin hematocrit 9.7 and 29.8 Status post band ligation of the esophageal varices Patient on octreotide infusion Exam Vital Signs Temp Pulse Resp BP Pulse Ox O2 Del Method O2 Flow Rate 97.5 F 80 16 132/86 H 96 Room Air 3 09/02/25 08:00 09/02/25 08:26 09/02/25 08:00 09/02/25 08:26 09/02/25 08:00 09/02/25 08:00 08/31/25 17:25 Objective Labs 09/02/25 06:15 09/02/25 06:15 Labs: Laboratory Results - last 24 hr 09/02/25 06:15 WBC 3.6 L RBC 3.42 L Hgb 11.7 L Hct 34.4 L MCV 101 H MCH 34.2 MCHC 34.0 RDW Std Deviation 52.4 H Plt Count 50 L Neut % (Auto) 76 Lymph % (Auto) 9 L [place] % (Auto) 10 Eos % (Auto) 4 Baso % (Auto) 1 Neut # (Auto) 2.7 Lymph # (Auto) 0.3 L [place] # (Auto) 0.4 Eos # (Auto) 0.1 Baso # (Auto) 0.0 Immature Gran # (Auto) 0.02 H Absolute Nucleated RBC 0.00 Immature Gran % 1 H Nucleated RBC % 0 Sodium 139 Potassium 3.5 Chloride 102 Carbon Dioxide 27.0 Anion Gap 10 BUN 11 Creatinine 1.0 Estim Creat Clear Calc 88.4 eGFR > 60 BUN/Creatinine Ratio 11 L Glucose 141 H Calculated Osmolality 278 Calcium 8.4 Corrected Calcium 9.3 Total Bilirubin 9.9 H D AST 112 H ALT 36 Alkaline Phosphatase 166 H Total Protein 6.8 Albumin 2.9 L Globulin 3.9 H Albumin/Globulin Ratio 0.7 L Misc Test Result Platelets confirmed Impressions Impression: Upper GI bleed secondary to esophageal variceal bleeding requiring band ligation Advance diet Continue octreotide infusion for a total of 5 days from the day of admission Assessment & Plan A&P Narrative # Hematemesis in the setting of cirrhotic liver disease due to alcohol # Cirrhotic liver disease secondary to alcohol # Cholelithiasis Plan Agree with IV Protonix and IV octreotide infusion after discussion with the ER physician Dr. Canales Consent obtained for fiberoptic esophagogastroduodenoscopy biopsy possible therapeutic intervention under intravenous moderate sedation Serial CBC Will monitor abdominal pain in the setting of cholelithiasis Will follow the patient Thank you very much for the opportunity to participate in the care of this patient Time Spent With Patient Time: Total time spent is greater than 50% in coordination of care (as documented) at patient's floor/unit and/or counseling patient:
--- NOTE | 2025-09-02 15:58 | ESPR_ITS ---
Documentation for date of: 09/02/25 Subjective Subjective Interval history: No overnight events. Patient was examined at bedside; they appear A&Ox3 and in NAD. Vitals/labs today significant for total bilirubin 7.3->9.9. Physical exam was non-contributory. Insulin sliding scale was started today due to blood glucose being reported to be above 180s. Patient is currently on day 4 of octreotide gtt and is anticipated to be discharged on 09/03 after completing 5 days of octreotide gtt as per protocol. No further changes in management planned at this time. Exam Vital Signs Temp Pulse Resp BP Pulse Ox O2 Del Method O2 Flow Rate 97.4 F 72 16 113/78 96 Room Air 3 09/02/25 12:39 09/02/25 15:23 09/02/25 12:39 09/02/25 12:39 09/02/25 12:39 09/02/25 12:39 08/31/25 17:25 Narrative Exam General: Well-developed and well-nourished male in no acute distress. Skin: Warm, dry, intact, no obvious rash. Head: Normocephalic, atraumatic. Eyes: Scleral icterus. EOMI. Vision grossly intact. Ears: No ear pain, no ear discharge, Hearing grossly intact. Nose: No nasal discharge. Mouth/Throat: Oral mucosa moist. No obvious lesions in oropharynx. Cardiovascular: Regular rate and normal rhythm, no murmur, no JVD or carotid bruits. +S1/S2. Respiratory: Bilateral lungs are clear to auscultation, respirations unlabored, no crackles, no wheezing. No accessory muscle use. Gastrointestinal: Soft, nontender, non-distended, no palpable masses. No guarding or rebound tenderness. Peristalsis present. Extremities: Symmetrical, no significant deformities. No edema, no cyanosis, no clubbing. 2+ radial pulse bilaterally, 2+ posterior tibial pulse bilaterally. Neuro: A&O x 3. No focal deficits observed. Conversant, moving all extremities. No overt cerebellar signs/incoordination. Psychiatric: Cooperative, appropriate affect. Objective Labs 09/03/25 05:32 09/03/25 05:32 Labs: Laboratory Results - last 24 hr 09/02/25 06:15 WBC 3.6 L RBC 3.42 L Hgb 11.7 L Hct 34.4 L MCV 101 H MCH 34.2 MCHC 34.0 RDW Std Deviation 52.4 H Plt Count 50 L Neut % (Auto) 76 Lymph % (Auto) 9 L [place] % (Auto) 10 Eos % (Auto) 4 Baso % (Auto) 1 Neut # (Auto) 2.7 Lymph # (Auto) 0.3 L [place] # (Auto) 0.4 Eos # (Auto) 0.1 Baso # (Auto) 0.0 Immature Gran # (Auto) 0.02 H Absolute Nucleated RBC 0.00 Immature Gran % 1 H Nucleated RBC % 0 Sodium 139 Potassium 3.5 Chloride 102 Carbon Dioxide 27.0 Anion Gap 10 BUN 11 Creatinine 1.0 Estim Creat Clear Calc 88.4 eGFR > 60 BUN/Creatinine Ratio 11 L Glucose 141 H Calculated Osmolality 278 Calcium 8.4 Corrected Calcium 9.3 Total Bilirubin 9.9 H D AST 112 H ALT 36 Alkaline Phosphatase 166 H Total Protein 6.8 Albumin 2.9 L Globulin 3.9 H Albumin/Globulin Ratio 0.7 L Misc Test Result Platelets confirmed Quality Measures Quality Measures none Assessment & Plan Assessment Current Active Medications: Generic Name Dose Route Start Last Admin Trade Name Freq PRN Reason Stop Dose Admin Acetaminophen 650 mg 08/30/25 14:58 Acetaminophen 325 Mg Tablet PO 09/29/25 14:57 Q6H PRN PAIN SCALE 1-3 (mild Octreotide Acetate 1,000 mcg/ 102 mls @ 5.1 mls/hr 08/31/25 07:15 09/01/25 22:36 Sodium Chloride IV 09/04/25 11:14 50 mcg/hr .Q20H YOAN 5.1 mls/hr Protocol Administration 50 MCG/HR Ceftriaxone Sodium/Dextrose 1 gm in 50 mls @ 100 mls/hr 08/30/25 15:04 09/02/25 08:26 Rocephin/D5w 1gm Iv Premix IV 09/06/25 15:03 100 mls/hr QDAY YOAN Administration Lactulose 10 gm 09/01/25 14:00 09/02/25 14:12 Lactulose Syrup 20 Gm/30 Ml Udc PO 10/01/25 13:59 10 gm TID YOAN Administration Melatonin 6 mg 08/30/25 21:00 09/01/25 21:14 Melatonin 3 Mg Tablet PO 09/29/25 20:59 6 mg HS YOAN Administration Ondansetron HCl 4 mg 08/30/25 14:58 Ondansetron Inj 2 Mg/Ml Inj 2 Ml IVP 09/29/25 14:57 Q6H PRN NAUSEA OR VOMITING Protocol Pantoprazole Sodium 40 mg 09/01/25 09:00 09/02/25 08:26 Pantoprazole Inj 40 Mg Vial IVP 10/01/25 08:59 40 mg QDAY YOAN Administration Spironolactone 50 mg 09/01/25 09:00 09/02/25 08:26 Spironolactone 25 Mg Tablet PO 10/01/25 08:59 50 mg QDAY YOAN Administration Plan Patient is a 49-year-old M with a PMH of 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 Patient was admitted for the work-up and management of GI bleed from hematemesis in the setting of known history of cirrhosis and esophageal varices. #Decompensated liver cirrhosis #GI bleed, likely upper and 2/2 esophageal varices i/s/o cirrhosis #Hx of esophageal varices #Hx of cirrhosis 2/2 to EtOH #Hyperbilirubinemia #Thrombocytopenia #?Acute calculous cholecystitis (per imaging findings, however patient non-TTP) Patient presented on 08/30 with a chief complaint of a single episode of hematemesis producing tejas, red, liquid vomitus Admission Hgb 12.7, platelet count 68, total bilirubin 6.5, AST 177 08/30 CTAP showed cirrhosis with markedly abnormal heterogeneous radiodensities and multiple low-density lesions throughout the liver, mild to moderate ascites, esophageal varices, and perigastric varices On home propanolol 10 mg BID, spironolactone 25 mg QD, Protonix 40 mg BID, Lasix 40 mg QD Significant drinking history: drank an average of 12 beers per day from the age of 29 to 47 years old (quit 2 years ago) MELD-Na Score: 16 (<2% estimated 90-day mortality) Dx: -08/31 upper endoscopy completed, showed grade II esophageal varices with stigmata of recent bleeding which were banded and erythematous gastric mucosa. Rx: -Octreotide gtt w/ blood glucose checks Q1HR [08/30-09/03] -Protonix 40 mg IV BID -Rocephin 1 g IV QD [08/30--] -Aldactone 50 mg PO QD -Lactulose 10 mg PO TID -GI consulted, appreciate recommendations #Non-insulin dependent T2DM, in remission 08/30 admission blood glucose 189 Last HgbA1c on 07/23/24 was 6.9 On home Jardiance 25 mg QD Dx: -Hemoglobin A1c ordered, 6.0 Rx: -Monitor blood glucose -Insulin sliding scale #Asymptomatic bacteruria 08/30 UCx showed GPC, possibly a contaminant as patient is asymptomatic Rx: -Rocephin 1 g IV QD [08/30--] Hospital Management: Disposition: Med Surg Diet: Full Liquid GI Prophylaxis: Protonix Bowel Prophylaxis: None DVT Prophylaxis: SCDs CODE STATUS: Full Code I have examined the patient and conferred with my attending, Dr. Valentin, and my senior resident, Dr. Hunt, regarding them. Edgar Nobles, PGY-1 Internal Medicine Attending Provider Attestation/Addendum I have examined the patient, reviewed labs and imaging findings, discussed the case with the resident(s), and reviewed entered orders. I agree with the plan of care as outlined in this note, with these additional summaries/recommendations: Patient seen at bedside. No acute overnight events. Patient seen resting comfortably in hospital bed. Patient admitted for upper GI bleed in the setting of cirrhosis and history of esophageal varices. Patient underwent EGD that revealed grade 2 esophageal varices with stigmata of recent bleeding which were banded and erythematous mucosa in stomach. Patient will need octreotide drip for a total of 5 days, daily CBC, and patient will need to follow-up with [facility] clinic in [place] for repeat endoscopic in 4 weeks. Continue octreotide gtt., Protonix, and IV Rocephin. Continue to hold chemical anticoagulation. Transfuse for hemoglobin less than 7, platelets less than 50,000, or INR greater than 1.5. Patient has underlying cirrhosis secondary to alcohol use and can follow-up outpatient for continued management and vaccine series. Continue insulin sliding scale for diabetes mellitus type 2 with Accu-Cheks. Target blood sugar of 140-180 while hospitalized. Urine culture grew Enterococcus faecalis although patient continues to have no urinary symptoms. Likely contaminant. No need for treatment at this time although patient is already receiving IV Rocephin. There was suspicion of acute calculous cholecystitis on imaging although findings likely related to underlying cirrhosis and no evidence of right upper quadrant pain at this time. Patient updated on the plan and in agreement. All questions answered satisfaction. Please see residents note for additional details and management. Dr. Barbie MD
[2025-09-02] MEDS: INSULIN LISPRO (AdmeLOG) 1 UNIT/0.01 ML UNIT SC (17:13)
[2025-09-02] MEDS: MELATONIN 3 MG TABLET 6 MG PO (21:48)
[2025-09-02] MEDS: OCTREOTIDE ACET INJ 1,000 MCG in SODIUM CHLORIDE 0.9% 100 ML 5.1 MCG IV (21:48)
[2025-09-03] VITALS: BP 126/70; PULSE 70; PULSE 74; RESP 18; TEMP 36.9; O2SAT 93
[2025-09-03 04:00] VITALS: BP 115/70; PULSE 74; PULSE 77; RESP 18; TEMP 36.4; O2SAT 93
[2025-09-03] MEDS: LACTULOSE SYRUP 20 GM/30 ML UDC 10 GM PO (05:05)
[2025-09-03 05:53] LABS: Basophils # (Auto) 0.0 Thou/mm3 (0.0-0.2); Basophils % (Auto) 1 % (0-2.5); Eosinophils # (Auto) 0.1 Thou/mm3 (0.0-0.5); Eosinophils % (Auto) 3 % (0-10); Hematocrit 31.5 % (41.0-53.0); Hemoglobin 11.1 g/dL (13.5-16.0); Immature Granulocytes Auto 0.02 Thou/mm3 (0.00-0.00); Lymphocytes # (Auto) 0.4 Thou/mm3 (1.0-4.8); Lymphocytes % (Auto) 10 % (10-50); Mean Corpuscular HGB Conc 35.2 g/dl (31.0-37.0); Mean Corpuscular Hemoglobin 35.5 pg (25.0-35.0); Mean Corpuscular Volume 101 fL (80-100); Monocytes # (Auto) 0.5 Thou/mm3 (0.0-0.8); Monocytes % (Auto) 13 % (0-12); Neutrophils # (Auto) 2.9 Thou/mm3 (1.8-7.7); Neutrophils % (Auto) 74 % (37-80); Nucleated Red Blood Cell # 0.00 Thou/mm3 (0.00-0.00); Nucleated Red Blood Cell % 0 /100 WBC (0); RDW Standard Deviation 51.4 fL (35.1-43.9); Red Blood Count 3.13 Miln/mm3 (4.50-5.90); White Blood Count 3.9 Thou/mm3 (3.8-10.6)
[2025-09-03 05:58] LABS: Platelet Count 58 Thou/mm3 (140-440)
[2025-09-03 06:32] LABS: Alanine Aminotransferase 36 U/L (10-49); Albumin, Serum 2.7 gm/dL (3.5-5.0); Albumin/Globulin Ratio 0.7 (1.2-2.2); Alkaline Phosphatase 146 U/L (46-116); Anion Gap 10 (7-16); Aspartate Amino Transferase 105 U/L (0-34); BUN/Creatinine Ratio 9 Ratio (12-20); Bilirubin,Total 11.0 mg/dL (0.3-1.2); Blood Urea Nitrogen 8 mg/dL (9-23); Calcium 8.3 mg/dL (8.3-10.6); Calcium (Corrected) 9.3 mg/dL (8.5-10.1); Carbon Dioxide 26.0 mMol/L (20.0-31.0); Chloride 103 mMol/L (98-107); Creatinine (Component) 0.9 mg/dL (0.6-1.3); Estimated Creatinine Clearance 98.2 mL/min (>60); Globulin 3.7 gm/dL (2.3-3.5); Glucose 137 mg/dL (74-106); Osmolality,Calculated 277 (275-295); Potassium 3.5 mMol/L (3.4-5.1); Sodium 139 mMol/L (136-145); Total Protein 6.4 gm/dL (5.7-8.2); eGFR > 60 See Note
[2025-09-03 08:00] VITALS: BP 129/91; PULSE 77; PULSE 83; RESP 19; TEMP 36.6; O2SAT 97
[2025-09-03 09:23] VITALS: BP 129/91; PULSE 83
[2025-09-03] MEDS: cefTRIAXone/D5w 1gm IV premix 1 GM/50 ML BAG IV (09:23)
[2025-09-03] MEDS: SPIRONOLACTONE 25 MG TABLET 50 MG PO (09:23)
--- NOTE | 2025-09-03 10:58 | PC.SS ---
SS follow up note; Patient will complete last dose of Octreotide drip today, possible late discharge home today.
[2025-09-03 12:00] VITALS: PULSE 83
[2025-09-03 13:12] LABS: Slide Review Platelets confirmed
--- NOTE | 2025-09-03 13:42 | ESDS_ITS ---
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 Hospital: During patient's hospital course, he was treated with octreotide gtt, Protonix IV, and Rocephin IV for GI bleed suspected to be 2/2 esophageal varices which was confirmed on 08/31 EGD (grade II) at which point they were also banded. He was also treated with Aldactone and lactulose due to his history of cirrhosis and ascites. By 09/03, patient had completed a full 5-day course of octreotide gtt and was deemed clinically stable for discharge home. Patient is safe to discharge. Further discharge instructions below. Discharge Recommendations: -Follow up with PCP within 1 week of discharge -We have changed the dose frequency of your pantoprazole (Protonix) from twice a day to once a day -Continue rest of medications as previously prescribed -Return to the ED or call EMS if symptoms return and/or worsen. Recomendaciones al salir del hospital: * Visite a harrell m?dico de cabecera dentro de trey semana. * Harrell medicamento pantoprazol (Protonix) ahora debe tomarse trey vez al d?a en lugar de dos. * Siga tomando los dem?s medicamentos monisha day se le indic? antes. * Regrese a urgencias o llame al 911 si los s?ntomas vuelven o empeoran. Hospital Diagnoses: #Decompensated liver cirrhosis #GI bleed, likely upper and 2/2 esophageal varices i/s/o cirrhosis #Hx of esophageal varices, s/p 08/31 EGD and band ligation #Hx of cirrhosis 2/2 to EtOH #Hyperbilirubinemia #Thrombocytopenia #?Acute calculous cholecystitis (per imaging findings, however patient non-TTP) #Non-insulin dependent T2DM, in remission #Asymptomatic bacteruria Status at Discharge Cognitive/Behavioral Status at Discharge: stable Functional Status at Discharge: independent ambulation Overall Status at Discharge: patient is back to baseline Patient's care plan was discussed with my attending, Dr. Valentin, and senior resident, Dr. Hunt. Edgar Nobles, DO Internal Medicine, PGY-1 Time Spent with Patient Time attestation: Total time spent providing and/or coordinating discharge services: Time spent: Greater than 30 minutes Exam Vital Signs Temp Pulse Resp BP Pulse Ox O2 Del Method O2 Flow Rate 97.8 F 83 19 129/91 H 97 Room Air 3 09/03/25 08:00 09/03/25 12:00 09/03/25 08:00 09/03/25 09:23 09/03/25 08:00 09/03/25 08:00 08/31/25 17:25 Narrative Exam General: Well-developed and well-nourished male in no acute distress. Skin: Warm, dry, intact, no obvious rash. Head: Normocephalic, atraumatic. Eyes: Scleral icterus. EOMI. Vision grossly intact. Ears: No ear pain, no ear discharge, Hearing grossly intact. Nose: No nasal discharge. Mouth/Throat: Oral mucosa moist. No obvious lesions in oropharynx. Cardiovascular: Regular rate and normal rhythm, no murmur, no JVD or carotid bruits. +S1/S2. Respiratory: Bilateral lungs are clear to auscultation, respirations unlabored, no crackles, no wheezing. No accessory muscle use. Gastrointestinal: Soft, nontender, non-distended, no palpable masses. No guarding or rebound tenderness. Peristalsis present. Extremities: Symmetrical, no significant deformities. No edema, no cyanosis, no clubbing. 2+ radial pulse bilaterally, 2+ posterior tibial pulse bilaterally. Neuro: A&O x 3. No focal deficits observed. Conversant, moving all extremities. No overt cerebellar signs/incoordination. Psychiatric: Cooperative, appropriate affect. Discharge Plan Plan Patient Disposition: HOME (Self Care) Patient condition on transfer: Stable Care Plan Goals: Discharge Recommendations: -Follow up with PCP within 1 week of discharge -We have changed the dose frequency of your pantoprazole (Protonix) from twice a day to once a day -Continue rest of medications as previously prescribed -Return to the ED or call EMS if symptoms return and/or worsen. Recomendaciones al salir del hospital: * Visite a harrell m?dico de cabecera dentro de trey semana. * Harrell medicamento pantoprazol (Protonix) ahora debe tomarse trey vez al d?a en lugar de dos. * Siga tomando los dem?s medicamentos monisha day se le indic? antes. * Regrese a urgencias o llame al 911 si los s?ntomas vuelven o empeoran. Prescriptions/Referrals Prescriptions/Med Rec: Continued propranolol 10 mg Tablet 10 mg PO BID Qty: 60 0RF furosemide 40 mg Tablet 40 mg PO QDAY spironolactone 25 mg Tablet 25 mg PO 1XD cholecalciferol (vitamin D3) 1,250 mcg (50,000 unit) Capsule 50,000 unit PO QWEEK Jardiance 25 mg Tablet 25 mg PO QDAY lactulose 10 gram/15 mL syrup 10 g PO TID Changed pantoprazole [Protonix] 40 mg tablet,delayed release (DR/EC) 40 mg PO QDAY Qty: 30 0RF Referrals: Macario Farooq [Primary Care Provider] Patient/Caregiver Discharge Instructions Education Materials: Total Bilirubin (Blood), Esophageal Varices, Understanding Cirrhosis Print Language: Thai Stand Alone Forms: Valentina Award Info., Patient Portal Info Letter Discharge Order Discharge Orders: Discharge (Routine); Ordered 09/03/25 Ordered By: Edgar Nobles Quality Discharge Quality Measures none MD Attestestation MD Attestation I have examined the patient, reviewed labs and imaging findings, discussed the case with the resident(s), and reviewed entered orders. I agree with the plan of care as outlined in this note. Time Spent: [address] Barbie MD
== END 2025-09-03 12:51 | disposition home or self-care (01) | DRG 280 ==
LOC: SERX 08:54 → SERHOLD 15:27 → S2NX 18:30 → S3NX 09-02 04:43
PROVIDERS: Nurse Practitioner Family; Specialist; Admitting Provider Student in an Organized Health Care Education/Training Program; Emergency Provider Emergency Medicine; PCP Physician Assistant; Visit Provider Student in an Organized Health Care Education/Training Program
PROC: 06L38CZ Occlusion of Esophageal Vein with Extraluminal Device, Via Natural or Artificial Opening Endoscopic (ICD-10-PCS; CPT 43239; principal; 2025-08-31 15:00)
DX: K70.31 Alcoholic cirrhosis of liver with ascites (principal); I85.11 Secondary esophageal varices with bleeding; D62 Acute posthemorrhagic anemia; K31.89 Other diseases of stomach and duodenum; D69.6 Thrombocytopenia, unspecified; R82.71 Bacteriuria; B95.2 Enterococcus as the cause of diseases classified elsewhere; E11.9 Type 2 diabetes mellitus without complications; K82.1 Hydrops of gallbladder; F10.10 Alcohol abuse, uncomplicated; K80.10 Calculus of gallbladder with chronic cholecystitis without obstruction; R16.1 Splenomegaly, not elsewhere classified; Z79.899 Other long term (current) drug therapy; Z79.84 Long term (current) use of oral hypoglycemic drugs
CPT/HCPCS: 36415; 74176; 74181; 76705; 80053; 81001; 83036; 83690; 85025; 85610; 85730; 86850; 86900; 86901; 87077; 87086; 87186; 93225; 96365; 96366; 96375; 99284; A4649; J0696; J1200; J1815; J2250; J2354; J2470; J3010; J3480; J3490; J7050; A9270

== ENCOUNTER 2025-09-21 04:19 | Inpatient (IN) | payer MEDICAID, SELFPAY ==
[2025-09-21] VITALS (13 sets, daily range): BP systolic 95–119; BP diastolic 57–78; PULSE 78–98; RESP 15–96; TEMP 36.2–37.1; O2SAT 96–98
--- NOTE | 2025-09-21 04:45 | PD.EDRME ---
Rapid Medical Screening Exam RME Arrival date/time: 09/21/25 04:19 Chief Complaint: Nausea/Vomiting/Diarrhea Time Seen by Provider: 09/21/25 04:25 Vital signs: Vital Signs Temperature 98.2 F 09/21/25 04:25 Pulse Rate 98 09/21/25 04:25 Respiratory Rate 19 09/21/25 04:25 Blood Pressure 118/78 09/21/25 04:25 Pulse Oximetry (%) 98 09/21/25 04:25 Oxygen Delivery Method Room Air 09/21/25 04:25 RME Narrative: 49-year-old male past medical history of liver cirrhosis presents to the ER complaining of coffee-ground emesis as well as bright red blood emesis and tarry in his stool which began today. Exam: Head: Normocephalic, atraumatic. Respiratory: Normal effort. No respiratory distress or accessory muscle use. Neuro: Speech normal. Skin: Warm, dry, jaundice Psych: Pleasant. Normal affect. Cooperative. Clinical Impression: Hematemesis
[2025-09-21 05:09] LABS: Basophils # (Auto) 0.1 Thou/mm3 (0.0-0.2); Basophils % (Auto) 1 % (0-2.5); Eosinophils # (Auto) 0.2 Thou/mm3 (0.0-0.5); Eosinophils % (Auto) 2 % (0-10); Hematocrit 27.2 % (41.0-53.0); Hemoglobin 9.3 g/dL (13.5-16.0); Immature Granulocytes Auto 0.24 Thou/mm3 (0.00-0.00); Lymphocytes # (Auto) 0.8 Thou/mm3 (1.0-4.8); Lymphocytes % (Auto) 6 % (10-50); Mean Corpuscular HGB Conc 34.2 g/dl (31.0-37.0); Mean Corpuscular Hemoglobin 34.6 pg (25.0-35.0); Mean Corpuscular Volume 101 fL (80-100); Monocytes # (Auto) 1.1 Thou/mm3 (0.0-0.8); Monocytes % (Auto) 8 % (0-12); Neutrophils # (Auto) 11.4 Thou/mm3 (1.8-7.7); Neutrophils % (Auto) 82 % (37-80); Nucleated Red Blood Cell # 0.03 Thou/mm3 (0.00-0.00); Nucleated Red Blood Cell % 0 /100 WBC (0); Platelet Count 112 Thou/mm3 (140-440); RDW Standard Deviation 51.0 fL (35.1-43.9); Red Blood Count 2.69 Miln/mm3 (4.50-5.90); White Blood Count 13.9 Thou/mm3 (3.8-10.6)
--- NOTE | 2025-09-21 05:15 | PD.EDNV ---
Nausea/Vomit./Diarrhea-RME/HPI General Chief complaint: Nausea/Vomiting/Diarrhea Stated complaint: VOMITING BLOOD Time Seen by Provider: 09/21/25 04:25 Arrival date/time: 09/21/25 04:19 Limitations: no limitations RME / HPI RME / HPI Narrative: 49-year-old male past medical history of liver cirrhosis presents to the ER complaining of coffee-ground emesis as well as bright red blood emesis and tarry in his stool which began today. Dr. Canales?s Main ED Evaluation: 49yo male with a history of cirrhosis 2/2 alcohol use disorder, esophageal varices, DMII presents to the ED for a chief complaint of coffee-ground emesis x 0300. Patient states he woke up earlier tonight having coffee-ground emesis and black tarry stools. Patient reports associated generalized abdominal pain and bloating. Denies any fever, chills, chest pain, cough, or any other associated symptoms. Patient is compliant with his medications. He is on iron pills. Denies any tobacco or illicit drug use. NKA. Related Data Home Medications ?Medication ?Instructions ?Recorded ?Confirmed cholecalciferol (vitamin D3) 1,250 50,000 unit PO QWEEK 07/25/24 08/30/25 mcg (50,000 unit) capsule empagliflozin 25 mg tablet 25 mg PO QDAY 07/25/24 08/30/25 (Jardiance) furosemide 40 mg tablet 40 mg PO QDAY 07/25/24 08/30/25 spironolactone 25 mg tablet 25 mg PO 1XD 07/25/24 08/30/25 lactulose 10 gram/15 mL oral syrup 10 g PO TID 02/26/25 08/30/25 Previous Rx's ?Medication ?Instructions ?Recorded propranolol 10 mg tablet 10 mg PO BID #60 tabs 10/26/22 pantoprazole 40 mg tablet,delayed 40 mg PO QDAY #30 tabs 09/03/25 release (Protonix) Allergies Allergy/AdvReac Type Severity Reaction Status Date / Time No Known Allergies Allergy Verified 09/21/25 04:20 Review of Systems Review of Systems Systems Reviewed: All systems reviewed, normal except as documented ED Exam General Limitations: Present no limitations General appearance: Present alert and in no apparent distress Head Head exam: Present atraumatic Eye Eye exam: Present PERRL, EOMI and scleral icterus ENT ENT exam: Present normal exam, normal oropharynx and mucous membranes moist Neck Neck exam: Present normal inspection, full ROM and trachea midline Chest Chest inspection: Present normal inspection and symmetric chest wall rise Respiratory Respiratory exam: Present normal lung sounds bilaterally; Absent respiratory distress Cardiovascular Cardiovascular exam: Present regular rate, normal rhythm and normal heart sounds Abdominal Exam Abdominal exam: Present soft and distention; Absent tenderness Extremities Exam Extremities exam: Present normal inspection and full ROM Back Exam Back exam: Present normal inspection and full ROM Neurological Exam Neurological exam: Present alert, oriented X3 and CN II-XII intact Psychiatric Psychiatric exam: Present normal affect and normal mood Skin Skin exam: Present warm, dry, intact and other (jaundice) Course Quality Measures none Orders Category Date Time Status EKG (ED ONLY) *Do not use* NOW Care 09/21/25 04:26 Completed Insert IV NOW Care 09/21/25 04:25 Active NPO NOW Care 09/21/25 05:20 Active Consult to Gastroenterology Stat Cons 09/21/25 05:19 Ordered Diet NPO (NOW) Diet 09/21/25 05:20 Active EKG (ED Only) Stat Exams 09/21/25 04:25 Ordered CBC Stat Lab 09/21/25 04:56 Completed CMP [Comprehensive Metabolic Panel] Stat Lab 09/21/25 04:56 Completed INR [Prothrombin Time with INR] Stat Lab 09/21/25 04:56 Completed Lipase Stat Lab 09/21/25 05:21 Ordered Type and Screen Stat Lab 09/21/25 04:56 Results UA, C/S IF [Urinalysis, C/S if Indicated] Stat Lab 09/21/25 05:16 Ordered Octreotide Acet Inj [SandoSTATIN Inj] Med 09/21/25 05:17 Once 50 mcg IV X1 ONE Pantoprazole/Ns 80Mg IV Premix [Protonix/NS 80mg IV Med 09/21/25 05:17 Ordered Premix] 80 mg in 100 ml IV X1 Pantoprazole/Ns 80Mg IV Premix [Protonix/NS 80mg IV Med 09/21/25 05:17 Ordered Premix] 80 mg in 100 ml IV X1 Vital Signs Vital signs: Vital Signs Temperature 98.2 F 09/21/25 04:25 Pulse Rate 98 09/21/25 04:25 Respiratory Rate 19 09/21/25 04:25 Blood Pressure 118/78 09/21/25 04:25 Pulse Oximetry (%) 98 09/21/25 04:25 Oxygen Delivery Method Room Air 09/21/25 04:25 Nausea/Vomiting/Diarrhea [facility] Narrative [facility] Narrative:: Scribe Attestation: 09/21/25 - Arianna Romo am scribing for and in the presence of Dr. Canales. Patient is a 49-year-old male with medical history notable for alcohol use disorder, cirrhosis, bleeding esophageal varices that seen emerged ferment with concerns for coffee-ground emesis and melena. Vital signs and exam as listed. Concern for bleeding esophageal varices, gastritis, erosive esophagitis among others. Patient not in distress, no chest pain, less likely esophageal perforation. Ordered labs, Protonix, octreotide will consult GI and admit the patient. Per chart review patient was recently admitted for similar presentation, patient had 4 bands placed and esophageal varices at that time. Labs with evidence of leukocytosis 13.9, left shift of 82%. Patient hemoglobin is 9.3, it was 11.1 in August of this year. 5:35a discussed case with on-call child protective services social worker Dr. Barclay, agrees with management will see patient admitted. Discussed admission with hospitalist service. Patient data External records reviewed:: [facility] previous records (Per chart review, patient was admitted here on 08/30/25 for hematemesis.) Clinical information provided by:: patient Social determinants that could affect healthcare access:: alcohol use Patient has the following chronic illnesses:: cirrhosis 2/2 alcohol use disorder, esophageal varices, DMII How is presenting disease/condition affected by chronic disease/condition?: exacerbated by Evaluation data The following diagnostics were reviewed and interpreted by me:: lab results Lab and/or radiology exams considered but not ordered:: none Interpretation Summary: See MDM Medications / Prescriptions Medications / Prescriptions considered but not ordered:: none Medication administrations:: Medication Administration History Pantoprazole Sodium (Protonix/Ns 80mg Iv Premix) 80 mg in 100 mls @ 400 mls/hr IV X1 ONE Stop: 09/21/25 05:31 Pantoprazole Sodium (Protonix/Ns 80mg Iv Premix) 80 mg in 100 mls @ 10 mls/hr IV X1 ONE Stop: 09/21/25 15:16 Octreotide Acetate (Octreotide Acet Inj 50 Mcg/Ml Vial) 50 mcg IV X1 ONE Stop: 09/21/25 05:18 see above Consultations Consultation(s) initiated? (list below): Yes Consultation #1 (Physician, Specialty, Details): Discussed case with Dr. Lee, attending Dr. Miranda from Hospitalist service regarding admission. Discussed patients ED course, exam findings, labs, and radiology results. The Hospitalist agrees to accept the patient for admission. Time: 05:33 Consultation #2 (Physician, Specialty, Details): Discussed case with Dr. Barclay from GI regarding consultation. Discussed patients ED course, exam findings, labs, and radiology results. Agrees to consult. Time: 05:35 Diagnosis Nausea Differential Diagnosis: other (See MDM) Most likely diagnosis given after review of the tests above:: see clinical impression below Admission Indicated Admission indicated?: indicated Admission Request Was there a request for admission?: Yes Admission Attestation Admission request attestation: Discussed case with [] from Hospitalist service regarding admission. Discussed patients ED course, exam findings, labs, and radiology results. The Hospitalist [agrees,declines] to accept the patient for admission. Disposition Plan Disposition Plan: Admit Critical Care Time Critical Care Time Critical Care Time: Yes Total Critical Care Time (min.): 45 Attestation: Due to a high probability of clinically significant, life threatening deterioration, the patient required my highest level of preparedness to intervene emergently and I personally spent this critical care time directly and personally managing the patient. This critical care time included obtaining a history; examining the patient; pulse oximetry; ordering and review of studies; arranging urgent treatment with development of a management plan; evaluation of patient's response to treatment; frequent reassessment; and, discussions with other providers. This critical care time was performed to assess and manage the high probability of imminent, life-threatening deterioration that could result in multi-organ failure. It was exclusive of separately billable procedures and treating other patients and teaching time. Please see MDM section and the rest of the note for further information on patient assessment and treatment. Discharge Plan Prescriptions/Referrals Prescriptions/Med Rec: No Action propranolol 10 mg Tablet 10 mg PO BID Qty: 60 0RF furosemide 40 mg Tablet 40 mg PO QDAY spironolactone 25 mg Tablet 25 mg PO 1XD cholecalciferol (vitamin D3) 1,250 mcg (50,000 unit) Capsule 50,000 unit PO QWEEK Jardiance 25 mg Tablet 25 mg PO QDAY lactulose 10 gram/15 mL syrup 10 g PO TID pantoprazole [Protonix] 40 mg tablet,delayed release (DR/EC) 40 mg PO QDAY Qty: 30 0RF Patient/Caregiver Discharge Instructions Print Language: Urdu
[2025-09-21 05:26] LABS: INR 1.4 (0.9-1.3); Prothrombin Time 14.6 Seconds (9.0-12.2)
[2025-09-21 05:31] LABS: Alanine Aminotransferase 52 U/L (10-49); Albumin, Serum 2.8 gm/dL (3.5-5.0); Albumin/Globulin Ratio 0.7 (1.2-2.2); Alkaline Phosphatase 241 U/L (46-116); Anion Gap 10 (7-16); Aspartate Amino Transferase 106 U/L (0-34); BUN/Creatinine Ratio 14 Ratio (12-20); Bilirubin,Total 7.1 mg/dL (0.3-1.2); Blood Urea Nitrogen 15 mg/dL (9-23); Calcium 8.6 mg/dL (8.3-10.6); Calcium (Corrected) 9.6 mg/dL (8.5-10.1); Carbon Dioxide 26.1 mMol/L (20.0-31.0); Chloride 104 mMol/L (98-107); Creatinine (Component) 1.1 mg/dL (0.6-1.3); Globulin 3.9 gm/dL (2.3-3.5); Glucose 199 mg/dL (74-106); Osmolality,Calculated 286 (275-295); Potassium 4.0 mMol/L (3.4-5.1); Sodium 140 mMol/L (136-145); Total Protein 6.7 gm/dL (5.7-8.2); eGFR > 60 See Note
[2025-09-21] MEDS: OCTREOTIDE ACET INJ 50 mCg/ML VIAL IV (05:40)
[2025-09-21] MEDS: PANTOPRAZOLE/NS 80MG IV PREMIX 80 MG/100 ML BAG 400 MG IV (05:40)
[2025-09-21] MEDS: PANTOPRAZOLE/NS 80MG IV PREMIX 80 MG/100 ML BAG 10 MG IV (05:42)
--- NOTE | 2025-09-21 06:05 | ESHP_ITS ---
Documentation for date of: 09/21/25 [facility] History of Present Illness History of present illness: HPI: 49-year-old macedonian-speaking male with past medical history of cirrhosis secondary to alcohol use disorder, esophageal varices status post 4 band placement, and type 2 diabetes who presented to the ED in the environmental programs specialist of 09/21/2025 with chief complaint of hematemesis and melena. Patient mentions that he experienced a total of 3 episodes of hematemesis starting at 3:00 in the morning on 09/21/2025. He also endorsed a 2-day history of melena. He also endorsed feeling dizzy prior to presentation. Upon evaluation by the internal medicine team the patient was actively vomiting with scant blood. He was found to have a hemoglobin of 9.3. He received IV Protonix, octreotide, and Zofran in the ED and GI was consulted. Patient was admitted for acute upper GI bleed. ED Course: * Significant vitals on arrival: Vitals within normal limits on arrival * Significant labs: WBC 13.9, hemoglobin 9.3, hematocrit 27.2, platelets 112, PT 14.6, INR 1.4, glucose 199, T. bili 7.1, AST 106, ALT 52, alk phos 241, albumin 2.8. * Imaging: No imaging performed in the ED * ED intervention: Patient received 80 mg IV pantoprazole, 50 mcg IV x 1 octreotide, 4 mg IV push Zofran, and was started on a pantoprazole drip. History: * Past medical history: As above in HPI * Surgical history: Hernia repair * Social history: Patient mentioned that he has been sober from alcohol for 2 years, denies tobacco or illicit drug use. Allergies: * No known drug allergies. Home Medications: (Pending Med Rec) * D3 supplement * Furosemide 40 mg daily * Jardiance 25 mg daily * Lactulose 10 p.o. twice daily * Protonix 40 mg daily * Propranolol 10 mg twice a day * Spironolactone 25 mg daily CODE STATUS: Full Code Review of Systems Review of Systems Narrative Review of Systems: Review of Systems: * General: Admits to short episode of dizziness prior to presentation. Denies fevers, chills. * HEENT: Denies headache, congestion, or sore throat. * Cardiac: Denies chest pain or palpitations. * Pulmonary: Denies shortness of breath or cough. * GI: 3 episodes of hematemesis prior to presentation. 2-day history of melena. * : Denies dysuria, hematuria, frequency, or urgency. * MSK: Denies pain in the extremities, joints, or myalgias. * Neuro: Denies weakness, numbness, vision changes, or speech difficulty. Exam Vital Signs Temp Pulse Resp BP Pulse Ox O2 Del Method 98.7 F 93 16 119/78 96 Room Air 09/21/25 05:26 09/21/25 05:26 09/21/25 05:26 09/21/25 05:26 09/21/25 05:26 09/21/25 05:26 Narrative Exam General: Jaundice, scleral icterus. Awake and in no acute distress. Conversational and non-toxic appearing. Neurologic: GCS 15. Alert and oriented x3, no gross neurological deficit, and patient able to move all 4 extremities. HEENT: Normocephalic, atraumatic, mucous membranes dry. Pupils reactive to light. Heart: Regular rate and rhythm, normal S1 and S2, no murmurs. Lungs: Clear to auscultation bilaterally with no wheezing or crackles. Abdomen: Soft, nondistended, nontender, positive bowel sounds. No guarding or rebound tenderness. Extremities: No edema. 2+ radial and dorsalis pedis pulses bilaterally. Skin: Jaundiced. Warm. Dry. No rash or ecchymoses. Results: Labs 09/21/25 04:56 09/21/25 04:56 Labs: Short CBC 09/21/25 Range/Units 04:56 WBC 13.9 H (3.8-10.6) Thou/mm3 Hgb 9.3 L (13.5-16.0) g/dL Hct 27.2 L (41.0-53.0) % Plt Count 112 L D (140-440) Thou/mm3 BMP 09/21/25 04:56 Sodium 140 Potassium 4.0 Chloride 104 Carbon Dioxide 26.1 BUN 15 Creatinine 1.1 Glucose 199 H Calcium 8.6 Liver Function 09/21/25 Range/Units 04:56 Total Bilirubin 7.1 H (0.3-1.2) mg/dL AST 106 H (0-34) U/L ALT 52 H (10-49) U/L Alkaline Phosphatase 241 H (46-116) U/L Albumin 2.8 L (3.5-5.0) gm/dL Quality Measures Quality Measures none Medications Home Medications and Allergies Home Medications ?Medication ?Instructions ?Recorded ?Confirmed ?Type cholecalciferol (vitamin D3) 1,250 50,000 unit PO QWEE K 07/25/24 08/30/25 History mcg (50,000 unit) capsule empagliflozin 25 mg tablet 25 mg PO QDAY 07/25/2408/08 History (Jardiance) furosemide 40 mg tablet 40 mg PO QDAY 07/25/2408/30 History spironolactone 25 mg tablet 25 mg PO 1XD 07/25/2408/08 History lactulose 10 gram/15 mL oral syrup 10 g PO TID 5 08/30/25 History Allergies Allergy/AdvReac Type Severity Reaction Status Date / Time No Known Allergies Allergy Verified 09/21/25 04:20 Visit Medications Acetaminophen (Acetaminophen 325 Mg Tablet) 650 mg PO Q6H PRN PRN Reason: Fever >100.4 Stop: 10/21/25 05:55 Furosemide (Furosemide Inj 10 Mg/Ml 4ml Vial) 40 mg IVP DAILY YOAN Stop: 10/21/25 08:59 Ceftriaxone Sodium/Dextrose (Rocephin/D5w 1gm Iv Premix) 1 gm in 50 mls @ 100 mls/hr IV X1 ONE Stop: 09/21/25 06:30 Ceftriaxone Sodium/Dextrose (Rocephin/D5w 1gm Iv Premix) 1 gm in 50 mls @ 100 mls/hr IV QDAY YOAN Stop: 09/29/25 08:59 Octreotide Acetate 1,000 mcg/ (Sodium Chloride) 102 mls @ 5.1 mls/hr IV .Q20H YOAN; Protocol Stop: 09/26/25 06:03 Ondansetron HCl (Ondansetron Inj 2 Mg/Ml Inj 2 Ml) 4 mg IVP Q6H PRN; Protocol PRN Reason: NAUSEA OR VOMITING Stop: 10/21/25 11:59 Pantoprazole Sodium (Pantoprazole Inj 40 Mg Vial) 40 mg IVP Q12HR YOAN Stop: 10/21/25 08:59 Spironolactone (Spironolactone 25 Mg Tablet) 25 mg PO DAILY YOAN Stop: 10/21/25 08:59 Discontinued Medications Pantoprazole Sodium (Protonix/Ns 80mg Iv Premix) 80 mg in 100 mls @ 400 mls/hr IV X1 ONE Stop: 09/21/25 05:31 Last Admin: 09/21/25 05:40 Dose: 400 mls/hr Pantoprazole Sodium (Protonix/Ns 80mg Iv Premix) 80 mg in 100 mls @ 10 mls/hr IV .Q10H [facility] Last Admin: 09/21/25 05:42 Dose: 10 mls/hr Octreotide Acetate (Octreotide Acet Inj 50 Mcg/Ml Vial) 50 mcg IV X1 ONE Stop: 09/21/25 05:18 Last Admin: 09/21/25 05:40 Dose: 50 mcg Assessment & Plan Plan Summary: 49-year-old macedonian-speaking male with past medical history of cirrhosis secondary to alcohol use disorder, esophageal varices status post 4 band placement, and type 2 diabetes who presented to the ED in the environmental programs specialist of 09/21/2025 with chief complaint of hematemesis and melena. He was found to have a hemoglobin of 9.3. In the ED he received IV Protonix, octreotide, and Zofran. GI was consulted. Patient was admitted for acute upper GI bleed. #Acute upper GI bleed #History of esophageal varices status post band placement #Acute on chronic normocytic anemia * Patient presented after 3 episodes of reportedly coffee-ground emesis * Hemoglobin 9.3 on arrival, has been around 11 per previous data * Patient was actively vomiting upon examination by internal medicine team, vomitus had scant blood * Patient endorsed 2-day history of melena * EGD on 08/31/2025 showed grade 2 esophageal varices with red brinda signs. 4 bands were successfully placed. The patient was treated with octreotide for 5 days. * Patient was advised to follow-up with outpatient GI though patient mentioned he did not follow-up Plan: * IV Protonix 40 mg every 12 hours * Octreotide drip 50 mcg/h * N.p.o. * Ceftriaxone 1 g daily for SBP prophylaxis * GI consulted #Cirrhosis secondary to alcohol use disorder #Hyperbilirubinemia #Thrombocytopenia * Data used to calculate scores below: * T. bili 7.1 * PT 14.6 (PT reference 12.2) * INR 1.4 * Creatinine 1.1 * Albumin 2.8 * MELD Score 19, 6% estimated 3-month mortality * Maddrey Score 18.1, good prognosis * Child Harding score 8 class B * Patient takes Lasix, propranolol, spironolactone * Thrombocytopenia likely secondary to cirrhosis, platelets 112, improved compared to previous data Plan: * Holding medications for now, blood pressure 108/71 on admission #[id number] type 2 diabetes * Patient takes Farxiga at home Plan: * Insulin sliding scale Hospital Maintenance: DVT ppx: SCDs, avoiding chemical prophylaxis in the presence of upper GI bleed GI ppx: Pantoprazole 40 mg IV every 12 hours Diet: N.p.o. IV lines: Peripheral IVs Code status: Full code Dispo: Med/tele, octreotide drip, GI consulted for acute upper GI bleed. Patient was seen and discussed with my attending physician Dr. Ruth ANDREW. Davion Lee DO PGY-1. Attending Provider Attestation/Addendum I have seen and examined the patient. I was physically present for the sosa portions of the services provided including history, physical exam, diagnosis, treatment plans and orders. I agree with assessment and plan of care as documented by residents. After examination of the patient and review of the clinical data I feel that this patient needs admission to the hospital for further treatment/evaluation. Even though this this note was carefully revised there may still be minor errors in transit operations supervisor due to voice recognition software. Barrington Miranda MD
[2025-09-21] MEDS: cefTRIAXone/D5w 1gm IV premix 1 GM/50 ML BAG IV (06:16)
[2025-09-21] MEDS: OCTREOTIDE ACET INJ 1,000 MCG in SODIUM CHLORIDE 0.9% 100 ML 5.1 MCG IV ×2 (06:17→22:37)
[2025-09-21 06:32] LABS: Lipase 49 U/L (12-53)
[2025-09-21] MEDS: RINGERS LACTATED 500 ML 500 ML 80 ML IV (06:36)
[2025-09-21] MEDS: INSULIN LISPRO (AdmeLOG) 1 UNIT/0.01 ML UNIT SC ×2 (07:31→22:07)
--- NOTE | 2025-09-21 09:53 | PC.NURSE ---
pt resting in bed in no apparent distress. respirations even and unlabored. family at bedside
--- NOTE | 2025-09-21 11:58 | ESPR_ITS ---
<Statement entered by Kenny Mcdermott MD - 09/30/25 08:27> I reviewed above note and agree with findings and plans. I have also personally examined the patient with medicine team and went over assessment and plan with medical team including chemist internship and resident physician. <Statement entered by Reena Painting MD - 09/21/25 15:25> In summary: A 49-year-old male with history of cirrhosis, esophageal varices bleed with previous banding a month ago, T2DM, presenting with hematemesis and melena. Diagnosed with acute upper GI bleed. Hemoglobin low on arrival but stable. Currently on PROTONIX BID and OCTREOTIDE drip pending EGD with GI. I?ve reviewed the note and agree with this assessment and plan, with the exceptions outlined above. I personally went over the labs, imaging, home medications, and prior records, and examined the patient. The case was also reviewed with the attending physician. Please note: this document was transcribed using voice recognition technology; minor inaccuracies may be present. Reena Painting DO PGY II Documentation for date of: 09/21/25 Subjective Subjective Interval history: The patient was evaluated at the bedside this morning. He was resting comfortably and reported no pain. He described experiencing four episodes of hematemesis and two days of melena. The patient mentioned that his last alcoholic drink was approximately two years ago. He denied any nausea, shortness of breath, chest pain, or lightheadedness. GI consult placed for evaluation of potential GI bleed. Exam Vital Signs Temp Pulse Resp BP Pulse Ox O2 Del Method 98.5 F 85 19 95/61 96 Room Air 09/21/25 09:58 09/21/25 09:58 09/21/25 09:58 09/21/25 09:58 09/21/25 09:58 09/21/25 09:58 Narrative Exam Physical Exam General: Awake and in no acute distress. Jaundice, scleral icterus. HEENT: Normocephalic, atraumatic, extraocular movements intact, pupils equal and reactive to light. Heart: Regular rate and rhythm, no murmurs, rubs or gallops. Lungs: Clear to auscultation with no wheezing or crackles bilaterally. Non- labored respirations, symmetric chest rise, no use of accessory muscles. Abdomen: Soft, distended, nontender. No guarding or rebound tenderness. Neurologic: Alert and oriented x3, no gross neurological deficit, and patient able to move all 4 extremities. Extremities: No edema, clubbing or cyanosis. No joint deformity. 2+ radial and dorsalis pedis pulses bilaterally. Skin: Warm and dry without rash. Jaundiced. Psychiatric: Cooperative, appropriate mood and affect. Objective Labs 09/24/25 04:25 09/24/25 04:25 Labs: Laboratory Results - last 24 hr 09/21/25 04:56 WBC 13.9 H RBC 2.69 L Hgb 9.3 L Hct 27.2 L MCV 101 H MCH 34.6 MCHC 34.2 RDW Std Deviation 51.0 H Plt Count 112 L D Neut % (Auto) 82 H Lymph % (Auto) 6 L [place] % (Auto) 8 Eos % (Auto) 2 Baso % (Auto) 1 Neut # (Auto) 11.4 H Lymph # (Auto) 0.8 L [place] # (Auto) 1.1 H Eos # (Auto) 0.2 Baso # (Auto) 0.1 Immature Gran # (Auto) 0.24 H Absolute Nucleated RBC 0.03 H Immature Gran % 2 H Nucleated RBC % 0 PT 14.6 H INR 1.4 H Sodium 140 Potassium 4.0 Chloride 104 Carbon Dioxide 26.1 Anion Gap 10 BUN 15 Creatinine 1.1 Estim Creat Clear Calc Not Performed. eGFR > 60 BUN/Creatinine Ratio 14 Glucose 199 H Calculated Osmolality 286 Calcium 8.6 Corrected Calcium 9.6 Total Bilirubin 7.1 H AST 106 H ALT 52 H Alkaline Phosphatase 241 H Total Protein 6.7 Albumin 2.8 L Globulin 3.9 H Albumin/Globulin Ratio 0.7 L Lipase 49 Blood Type O Positive Antibody Screen NEGATIVE Blood Bank Wristband ID Yes Quality Measures Quality Measures none Assessment & Plan Assessment Current Active Medications: Generic Name Dose Route Start Last Admin Trade Name Freq PRN Reason Stop Dose Admin Acetaminophen 650 mg 09/21/25 05:56 Acetaminophen 325 Mg Tablet PO 10/21/25 05:55 Q6H PRN Fever >100.4 Dextrose 25 ml 09/21/25 06:24 Dextrose 50%-Water Inj 50 Ml Syringe IV 10/21/25 06:23 Q15MIN PRN BG 50-70 responsive npo pt Dextrose 50 ml 09/21/25 06:24 Dextrose 50%-Water Inj 50 Ml Syringe IV 10/21/25 06:23 Q15MIN PRN BG <50 OR BG <70 & pt unresponsive Glucagon 1 mg 09/21/25 06:24 Glucagon Inj 1 Mg Vial IM Q15MIN PRN BG <70, and no IV access Ceftriaxone Sodium/Dextrose 1 gm in 50 mls @ 100 mls/hr 09/22/25 09:00 Rocephin/D5w 1gm Iv Premix IV 09/29/25 08:59 QDAY YOAN Octreotide Acetate 1,000 mcg/ 102 mls @ 5.1 mls/hr 09/21/25 06:03 09/21/25 06:17 Sodium Chloride IV 09/22/25 02:02 50 mcg/hr .Q20H YOAN 5.1 mls/hr Protocol Administration 50 MCG/HR Octreotide Acetate 1,000 mcg/ 102 mls @ 5.1 mls/hr 09/21/25 06:15 Sodium Chloride IV 10/21/25 06:14 .Q20H YOAN Protocol 50 MCG/HR Lactated Ringer's 500 mls @ 80 mls/hr 09/21/25 06:13 09/21/25 06:36 Lactated Ringers IV 09/21/25 12:27 80 mls/hr .Q6H15M ONE Administration Insulin Human Lispro 0 unit 09/21/25 09:15 09/21/25 09:15 Insulin Lispro (Admelog) 1 Unit/0.01 Ml Unit SC 10/21/25 09:14 Not Given Q6H YOAN Protocol Ondansetron HCl 4 mg 09/21/25 12:00 Ondansetron Inj 2 Mg/Ml Inj 2 Ml IVP 10/21/25 11:59 Q6H PRN NAUSEA OR VOMITING Protocol Pantoprazole Sodium 40 mg 09/21/25 09:00 09/21/25 09:51 Pantoprazole Inj 40 Mg Vial IVP 10/21/25 08:59 Not Given Q12HR YOAN Plan 49-year-old Kyrgyz-speaking male with a history of cirrhosis secondary to alcohol use disorder, esophageal varices (status post 4 band placements), and type 2 diabetes presented with hematemesis and melena, admitted for acute upper GI bleed. #Acute upper GI bleed #History of esophageal varices status post band placement #Acute on chronic normocytic anemia - Patient presented after 4 episodes of hematemesis and 2 days of melena. - Hemoglobin 9.3 on arrival. - EGD on 08/31/2025 showed grade 2 esophageal varices with red brinda signs. 4 bands were successfully placed. The patient was treated with octreotide for 5 days. - Patient was advised to follow-up with outpatient GI though patient mentioned he did not follow-up. - In the ED, patient received pantoprazole 80 mg IV x1, octreotide 50 mcg IV x 1, Zofran 4 mg IV push, and was started on a pantoprazole drip. Plan: * IV Protonix 40 mg every 12 hours. * Octreotide drip. * NPO * Ceftriaxone 1 g daily for 3-5 days. * Monitor H&H. * Transfuse if Hgb <7 or symptomatic. * GI consulted - appreciate recs. #Cirrhosis, secondary to #Alcohol use disorder #Transaminitis #Hyperbilirubinemia #Thrombocytopenia #Hypoalbumenia - Patient presents with advanced liver disease, evidenced by elevated bilirubin, transaminitis, and thrombocytopenia. - Labs: T. bili 7.1. PT 14.6. INR 1.4. Albumin 2.8. Plt 112. AST 106. ALT 52. - Patient is alert and oriented with no signs of hepatic encephalopathy. - MELD Score 19, 6% estimated 3-month mortality. - Maddrey Score 18.1, good prognosis. - Child Harding score 8 class B. - Patient takes Lasix, propranolol, spironolactone Plan: * Hold Lasix, propranolol, and spironolactone for now, as blood pressure is stable at 108/71 on admission. * Continue to monitor liver function tests, coagulation parameters, and platelet count closely. * Continue GI management for cirrhosis-related complications. * Continue to monitor mental status, with no current signs of encephalopathy. #Bql-[id number] type 2 diabetes - Patient takes Farxiga at home. Plan: * Insulin sliding scale. Health Maintenance Disposition: med surg for GI bleed, octreotide trip DVT prophylaxis: SCDs, avoiding chemical prophylaxis in the presence of upper GI bleed GI prophylaxis: Pantoprazole 40 mg IV every 12 hours Diet: NPO [place]: none Lines: Peripheral IV CODE STATUS: FULL --- Patient plan of care was discussed with the senior resident, Dr. Painting, and attending physician, Dr. Mcdermott. Mauro Schrader, DO PGY-1
--- NOTE | 2025-09-21 13:57 | PC.NURSE ---
REPORT GIVEN TO RENU ON MED/TELE FLOOR. PT TO GO TO ROOM 355
[2025-09-21 14:20] LABS: Collection Type, Urine Clean Catch
[2025-09-21 14:41] LABS: Bacteria,Urine 1+; Bilirubin,Urine Negative (Negative); Blood,Urine Negative (Negative); Clarity,Urine Clear (Clear/Hazy); Color,Urine Yellow (Lt Yel-Yel); Glucose, Urine 4+ (Negative); Ketones,Urine Negative (Negative); Leukocyte Esterase,Urine Negative (Negative); Nitrite,Urine Negative (Negative); PH,Urine 6.0 (5.0-7.0); Protein,Urine Negative (Neg - Trace); RBC,Urine 8 /hpf (0-3); Specific Gravity,Urine 1.030 (1.001-1.035); Squamous Epithelial Cell,Urine < 1 /hpf (0-5); Urobilinogen,Urine 2.0 mg/dL (0.0-1.0); WBC,Urine 1 /hpf (0-5)
[2025-09-21 14:48] LABS: Culture Indicated,Urine Yes
--- NOTE | 2025-09-21 21:48 | PD.IMCONS ---
HPI Data of Consult Requesting Physician: Barrington Miranda MD Primary Care Provider: Macario Muñoz Consult Narrative Reason for consult: Hematemesis, melena, History of present illness: 49-year-old male presented to the hospital this morning in the emergency room with hematemesis and melanotic stools Presenting hemoglobin hematocrit 9.3 and 27.2 with a platelet count of 112,000 Last hemoglobin checked was 11.1 and 31.5 a month ago with a platelet count of 58,000 Patient did have upper endoscopy done on 08/31/2025 which showed esophageal varices with band ligation and hypertensive portal gastropathy with mucosal oozing of the blood Patient has not drank according to him for 2 years cc:: cc: Barrington Miranda MD Review of Systems Review of Systems Systems Reviewed: All systems reviewed, normal except as documented Meds Home Medications and Allergies Home Medications ?Medication ?Instructions ?Recorded ?Confirmed ?Type cholecalciferol (vitamin D3) 1,250 50,000 unit PO QWEEK 07/25/24 09/21/25 History mcg (50,000 unit) capsule empagliflozin 25 mg tablet 25 mg PO QDAY 07/25/24 09/21/25 History (Jardiance) furosemide 40 mg tablet 40 mg PO QDAY 07/25/24 09/21/25 History spironolactone 25 mg tablet 25 mg PO 1XD 07/25/24 09/21/25 History lactulose 10 gram/15 mL oral syrup 10 g PO TID 02/26/25 09/21/25 History ferrous sulfate 325 mg (65 mg 325 mg PO QDAY 09/21/25 09/21/25 History iron) tablet (Pramod-Time) Allergies Allergy/AdvReac Type Severity Reaction Status Date / Time No Known Allergies Allergy Verified 09/21/25 04:20 Exam Vital Signs Temp Pulse Resp BP Pulse Ox O2 Del Method 97.6 F 83 16 99/59 L 96 Room Air 09/21/25 20:00 09/21/25 20:00 09/21/25 20:00 09/21/25 20:00 09/21/25 20:00 09/21/25 20:00 Constitutional Comments: Alert oriented Routine Respiratory Exam Comments: Normal to auscultation Routine Abdominal Exam Comments: Positive bowel sounds Results Labs 09/21/25 04:56 09/21/25 04:56 Labs: Short CBC 09/21/25 Range/Units 04:56 WBC 13.9 H (3.8-10.6) Thou/mm3 Hgb 9.3 L (13.5-16.0) g/dL Hct 27.2 L (41.0-53.0) % Plt Count 112 L D (140-440) Thou/mm3 BMP 09/21/25 04:56 Sodium 140 Potassium 4.0 Chloride 104 Carbon Dioxide 26.1 BUN 15 Creatinine 1.1 Glucose 199 H Calcium 8.6 Liver Function 09/21/25 Range/Units 04:56 Total Bilirubin 7.1 H (0.3-1.2) mg/dL AST 106 H (0-34) U/L ALT 52 H (10-49) U/L Alkaline Phosphatase 241 H (46-116) U/L Albumin 2.8 L (3.5-5.0) gm/dL Urine 09/21/25 Range/Units 14:14 Urine Color Yellow (Lt Yel-Yel) Urine Clarity Clear (Clear/Hazy) Urine pH 6.0 (5.0-7.0) Ur Specific [place] 1.030 (1.001-1.035) Urine Protein Negative (Neg - Trace) Urine Glucose (UA) 4+ A (Negative) Assessment and Plan Additional Assessment & Plan Additional Plan: Hematemesis Melena Posthemorrhagic anemia in the setting of cirrhotic liver disease secondary to alcohol Plan Agree with the current management with IV octreotide IV Protonix and blood transfusion N.p.o. midnight tonight Consent obtained for fiberoptic esophagogastroduodenoscopy with possible therapeutic intervention under intravenous moderate sedation scheduled for tomorrow Thank you for the opportunity to participate in the care of this patient
--- NOTE | 2025-09-21 22:11 | PC.NURSE ---
Called shift stacker outpt pharmacy to let them know that i was unable to scan the octreotide bag because the scheduled time is AT 2 AM, pharmacist stated that it was better to notify provider and ask for a x1 order. Called Dr. De Los Santos to let her know and ask if she could put the order, MD stated that she would put the x1 order.
--- NOTE | 2025-09-21 22:35 | PC.NURSE ---
Called Dr. De Lo sSantos to ask again about the octreotide order, stated that it is okay to hang a new bag right now.
[2025-09-22] VITALS (20 sets, daily range): BP systolic 98–132; BP diastolic 59–83; PULSE 77–86; RESP 16–97; TEMP 36.1–36.9; O2SAT 92–97; BMI 26.7
--- NOTE | 2025-09-22 06:10 | PC.NURSE ---
Called Dr. Lee to ask if they wanted to add fluids for pt since he is NPO, stated that they would wait for day team and let them decide if they want to add any orders for pt.
--- NOTE | 2025-09-22 06:33 | PC.NURSE ---
Lab called to report that pt's H&H is 7.3, 21.6, PLT 59. Dr. Lee was made aware, Md ordered a repeat blood draw. called lab to let them know about MDs request.
[2025-09-22 06:47] LABS: Alanine Aminotransferase 41 U/L (10-49); Albumin, Serum 2.4 gm/dL (3.5-5.0); Albumin/Globulin Ratio 0.7 (1.2-2.2); Alkaline Phosphatase 155 U/L (46-116); Anion Gap 12 (7-16); Aspartate Amino Transferase 86 U/L (0-34); BUN/Creatinine Ratio 20 Ratio (12-20); Bilirubin,Total 5.9 mg/dL (0.3-1.2); Blood Urea Nitrogen 20 mg/dL (9-23); Calcium 7.9 mg/dL (8.3-10.6); Calcium (Corrected) 9.2 mg/dL (8.5-10.1); Carbon Dioxide 25.2 mMol/L (20.0-31.0); Chloride 104 mMol/L (98-107); Creatinine (Component) 1.0 mg/dL (0.6-1.3); Globulin 3.3 gm/dL (2.3-3.5); Glucose 138 mg/dL (74-106); Magnesium 2.0 mg/dL (1.6-2.6); Osmolality,Calculated 285 (275-295); Potassium 3.9 mMol/L (3.4-5.1); Sodium 141 mMol/L (136-145); Total Protein 5.7 gm/dL (5.7-8.2); eGFR > 60 See Note
[2025-09-22 07:11] LABS: Basophils # (Auto) 0.0 Thou/mm3 (0.0-0.2); Basophils % (Auto) 0 % (0-2.5); Eosinophils # (Auto) 0.1 Thou/mm3 (0.0-0.5); Eosinophils % (Auto) 2 % (0-10); Hematocrit 21.5 % (41.0-53.0); Immature Granulocytes Auto 0.11 Thou/mm3 (0.00-0.00); Lymphocytes # (Auto) 0.7 Thou/mm3 (1.0-4.8); Lymphocytes % (Auto) 13 % (10-50); Mean Corpuscular HGB Conc 34.4 g/dl (31.0-37.0); Mean Corpuscular Hemoglobin 35.1 pg (25.0-35.0); Mean Corpuscular Volume 102 fL (80-100); Monocytes # (Auto) 0.4 Thou/mm3 (0.0-0.8); Monocytes % (Auto) 8 % (0-12); Neutrophils # (Auto) 3.6 Thou/mm3 (1.8-7.7); Neutrophils % (Auto) 74 % (37-80); Nucleated Red Blood Cell # 0.03 Thou/mm3 (0.00-0.00); Nucleated Red Blood Cell % 1 /100 WBC (0); RDW Standard Deviation 52.5 fL (35.1-43.9); Red Blood Count 2.11 Miln/mm3 (4.50-5.90); White Blood Count 4.9 Thou/mm3 (3.8-10.6)
[2025-09-22 07:12] LABS: Hemoglobin 7.4 g/dL (13.5-16.0); Platelet Count 69 Thou/mm3 (140-440)
[2025-09-22 07:57] LABS: Slide Review Platelets confirmed
[2025-09-22] MEDS: cefTRIAXone/D5w 1gm IV premix 1 GM/50 ML BAG IV (08:40)
[2025-09-22 09:07] LABS: Hematocrit 21.9 % (41.0-53.0)
[2025-09-22 09:37] LABS: Hemoglobin 7.5 g/dL (13.5-16.0)
--- NOTE | 2025-09-22 10:36 | ESPR_ITS ---
<Statement entered by Kenny Mcdermott MD - 09/30/25 09:14> I reviewed above note and agree with findings and plans. I have also personally examined the patient with medicine team and went over assessment and plan with medical team including international marketing executive and resident physician. <Statement entered by Reena Painting MD - 09/22/25 15:13> In summary: A 49-year-old male with history of cirrhosis, esophageal varices bleed with previous banding a month ago, T2DM, presenting with hematemesis and melena. Diagnosed with acute upper GI bleed. Hemoglobin low on arrival but stable. Currently on PROTONIX BID and OCTREOTIDE drip unti 09/24 and pending EGD with GI. I?ve reviewed the note and agree with this assessment and plan, with the exceptions outlined above. I personally went over the labs, imaging, home medications, and prior records, and examined the patient. The case was also reviewed with the attending physician. Please note: this document was transcribed using voice recognition technology; minor inaccuracies may be present. Reena Painting DO PGY II Documentation for date of: 09/22/25 Subjective Subjective Interval history: No acute events overnight. The patient was seen at the bedside this morning and has no current complaints. Hemoglobin was 7.4 on AM labs, and a repeat measurement showed 7.5. One unit of pRBC was transfused, and pendning post- transfusion H&H. Another unit will be transfused if necessary. An EGD is planned for today with Dr. Barclay. Exam Vital Signs Temp Pulse Resp BP Pulse Ox O2 Del Method 98.1 F 82 17 106/64 95 Room Air 09/22/25 08:00 09/22/25 08:00 09/22/25 08:00 09/22/25 08:00 09/22/25 08:00 09/22/25 08:00 Narrative Exam Physical Exam General: Awake and in no acute distress. Jaundice, scleral icterus. HEENT: Normocephalic, atraumatic, extraocular movements intact, pupils equal and reactive to light. Heart: Regular rate and rhythm, no murmurs, rubs or gallops. Lungs: Clear to auscultation with no wheezing or crackles bilaterally. Non- labored respirations, symmetric chest rise, no use of accessory muscles. Abdomen: Soft, distended, nontender. No guarding or rebound tenderness. Neurologic: Alert and oriented x3, no gross neurological deficit, and patient able to move all 4 extremities. Extremities: No edema, clubbing or cyanosis. No joint deformity. 2+ radial and dorsalis pedis pulses bilaterally. Skin: Warm and dry without rash. Jaundiced. Psychiatric: Cooperative, appropriate mood and affect. Objective Labs 09/24/25 04:25 09/24/25 04:25 Labs: Laboratory Results - last 24 hr 09/21/25 09/21/25 09/22/25 04:56 14:14 05:15 WBC RBC Hgb Hct MCV MCH MCHC RDW Std Deviation Plt Count Neut % (Auto) Lymph % (Auto) [place] % (Auto) Eos % (Auto) Baso % (Auto) Neut # (Auto) Lymph # (Auto) [place] # (Auto) Eos # (Auto) Baso # (Auto) Immature Gran # (Auto) Absolute Nucleated RBC Immature Gran % Nucleated RBC % Sodium 141 Potassium 3.9 Chloride 104 Carbon Dioxide 25.2 Anion Gap 12 BUN 20 Creatinine 1.0 Estim Creat Clear Calc Not Performed. eGFR > 60 BUN/Creatinine Ratio 20 Glucose 138 H D Calculated Osmolality 285 Calcium 7.9 L Corrected Calcium 9.2 Magnesium 2.0 Total Bilirubin 5.9 H D AST 86 H ALT 41 Alkaline Phosphatase 155 H D Total Protein 5.7 Albumin 2.4 L Globulin 3.3 Albumin/Globulin Ratio 0.7 L Ur Collection Type Clean Catch Urine Color Yellow Urine Clarity Clear Urine pH 6.0 Ur Specific [place] 1.030 Urine Protein Negative Urine Glucose (UA) 4+ A Urine Ketones Negative Urine Blood Negative Urine Nitrite Negative Urine Bilirubin Negative Urine Urobilinogen (Auto) 2.0 Ur Leukocyte Esterase Negative Urine RBC 8 H Urine WBC 1 Ur Squamous Epith Cells < 1 Urine Bacteria 1+ A Ur Culture Indicated? Yes Misc Test Result Blood Type O Positive Antibody Screen NEGATIVE Crossmatch See Detail Blood Bank Wristband ID Yes 09/22/25 09/22/25 06:55 08:43 WBC 4.9 D RBC 2.11 L Hgb 7.4 L D 7.5 L Hct 21.5 L* 21.9 L* MCV 102 H MCH 35.1 H MCHC 34.4 RDW Std Deviation 52.5 H Plt Count 69 L D Neut % (Auto) 74 Lymph % (Auto) 13 [place] % (Auto) 8 Eos % (Auto) 2 Baso % (Auto) 0 Neut # (Auto) 3.6 Lymph # (Auto) 0.7 L [place] # (Auto) 0.4 Eos # (Auto) 0.1 Baso # (Auto) 0.0 Immature Gran # (Auto) 0.11 H Absolute Nucleated RBC 0.03 H Immature Gran % 2 H Nucleated RBC % 1 H Sodium Potassium Chloride Carbon Dioxide Anion Gap BUN Creatinine Estim Creat Clear Calc eGFR BUN/Creatinine Ratio Glucose Calculated Osmolality Calcium Corrected Calcium Magnesium Total Bilirubin AST ALT Alkaline Phosphatase Total Protein Albumin Globulin Albumin/Globulin Ratio Ur Collection Type Urine Color Urine Clarity Urine pH Ur Specific [place] Urine Protein Urine Glucose (UA) Urine Ketones Urine Blood Urine Nitrite Urine Bilirubin Urine Urobilinogen (Auto) Ur Leukocyte Esterase Urine RBC Urine WBC Ur Squamous Epith Cells Urine Bacteria Ur Culture Indicated? Misc Test Result Platelets confirmed Blood Type Antibody Screen Crossmatch Blood Bank Wristband ID Quality Measures Quality Measures none Assessment & Plan Assessment Current Active Medications: Generic Name Dose Route Start Last Admin Trade Name Freq PRN Reason Stop Dose Admin Acetaminophen 650 mg 09/21/25 05:56 Acetaminophen 325 Mg Tablet PO 10/21/25 05:55 Q6H PRN Fever >100.4 Dextrose 25 ml 09/21/25 06:24 Dextrose 50%-Water Inj 50 Ml Syringe IV 10/21/25 06:23 Q15MIN PRN BG 50-70 responsive npo pt Dextrose 50 ml 09/21/25 06:24 Dextrose 50%-Water Inj 50 Ml Syringe IV 10/21/25 06:23 Q15MIN PRN BG <50 OR BG <70 & pt unresponsive Glucagon 1 mg 09/21/25 06:24 Glucagon Inj 1 Mg Vial IM Q15MIN PRN BG <70, and no IV access Ceftriaxone Sodium/Dextrose 1 gm in 50 mls @ 100 mls/hr 09/22/25 09:00 09/22/25 08:40 Rocephin/D5w 1gm Iv Premix IV 09/29/25 08:59 100 mls/hr QDAY YOAN Administration Octreotide Acetate 1,000 mcg/ 102 mls @ 5.1 mls/hr 09/22/25 02:02 09/21/25 22:37 Sodium Chloride IV 10/22/25 02:01 50 mcg/hr .Q20H YOAN 5.1 mls/hr Protocol Administration 50 MCG/HR Influenza Virus Vaccine Quadrival 0.5 ml 09/23/25 20:00 Influenza Virus 0.5 Ml Syringe IMi 09/23/25 20:01 .ONCE ONE Insulin Human Lispro 0 unit 09/21/25 09:15 09/22/25 03:35 Insulin Lispro (Admelog) 1 Unit/0.01 Ml Unit SC 10/21/25 09:14 Not Given Q6H YOAN Protocol Ondansetron HCl 4 mg 09/21/25 12:00 Ondansetron Inj 2 Mg/Ml Inj 2 Ml IVP 10/21/25 11:59 Q6H PRN NAUSEA OR VOMITING Protocol Pantoprazole Sodium 40 mg 09/21/25 09:00 09/22/25 08:40 Pantoprazole Inj 40 Mg Vial IVP 10/21/25 08:59 40 mg Q12HR YOAN Administration Plan 49-year-old Icelandic-speaking male with a history of cirrhosis secondary to alcohol use disorder, esophageal varices (status post 4 band placements), and type 2 diabetes presented with hematemesis and melena, admitted for acute upper GI bleed. #Acute upper GI bleed #History of esophageal varices status post band placement #Acute on chronic normocytic anemia - Patient presented after 4 episodes of hematemesis and 2 days of melena. - Hemoglobin 9.3 on arrival. - EGD on 08/31/2025 showed grade 2 esophageal varices with red brinda signs. 4 bands were successfully placed. The patient was treated with octreotide for 5 days. - Patient was advised to follow-up with outpatient GI though patient mentioned he did not follow-up. - In the ED, patient received pantoprazole 80 mg IV x1, octreotide 50 mcg IV x 1, Zofran 4 mg IV push, and was started on a pantoprazole drip. Plan: * IV Protonix 40 mg every 12 hours. * Octreotide drip. * NPO. * Ceftriaxone 1 g daily for 3-5 days. * Monitor H&H. * GI consulted - appreciate recs. Plan for EGD today. * S/p 1 unit of pRBC. Pending post H&H. Will replete accordingly. #Cirrhosis, secondary to #Alcohol use disorder #Transaminitis #Hyperbilirubinemia #Thrombocytopenia #Hypoalbumenia #Hypertensive portal gastropathy - Patient presents with advanced liver disease, evidenced by elevated bilirubin, transaminitis, and thrombocytopenia. - Labs: T. bili 7.1. PT 14.6. INR 1.4. Albumin 2.8. Plt 112. AST 106. ALT 52. - Patient is alert and oriented with no signs of hepatic encephalopathy. - MELD Score 19, 6% estimated 3-month mortality. - Maddrey Score 18.1, good prognosis. - Child Harding score 8 class B. - Patient takes Lasix, propranolol, spironolactone Plan: * Hold Lasix, propranolol, and spironolactone for now, as blood pressure is stable at 108/71 on admission. * Continue to monitor liver function tests, coagulation parameters, and platelet count closely. * Continue GI management for cirrhosis-related complications. * Continue to monitor mental status, with no current signs of encephalopathy. #[id number] type 2 diabetes - Patient takes Farxiga at home. Plan: * Insulin sliding scale. Health Maintenance Disposition: med surg for GI bleed, octreotide drip DVT prophylaxis: SCDs, avoiding chemical prophylaxis in the presence of upper GI bleed GI prophylaxis: Pantoprazole 40 mg IV every 12 hours Diet: NPO Landaverde: none Lines: Peripheral IV CODE STATUS: FULL --- Patient plan of care was discussed with the senior resident, Dr. Painting, and attending physician, Dr. Mcdermott. Mauro Schrader, DO PGY-1
--- NOTE | 2025-09-22 11:03 | PC.NURSE ---
Alert and oriented x4, resp 18 even and unlabored, call light with in reach, bed in low position, pt voices no c/o pain at this time, skin color jaundice, sclera jaundice, pt able to move upper and lower extremities well with veronica c/o pain, eyes are PERRLA, pt able to hear with no difficulties, pt bed locked and all personal belongings in reach
[2025-09-22 16:53] LABS: Hematocrit 26.8 % (41.0-53.0); Hemoglobin 9.1 g/dL (13.5-16.0)
[2025-09-22] MEDS: OCTREOTIDE ACET INJ 1,000 MCG in SODIUM CHLORIDE 0.9% 100 ML 5.1 MCG IV (23:13)
[2025-09-23] VITALS (10 sets, daily range): BP systolic 104–120; BP diastolic 66–81; PULSE 77–95; RESP 16–98; TEMP 36.4–36.7; O2SAT 94–97
[2025-09-23 05:28] LABS: Basophils # (Auto) 0.0 Thou/mm3 (0.0-0.2); Basophils % (Auto) 1 % (0-2.5); Eosinophils # (Auto) 0.2 Thou/mm3 (0.0-0.5); Eosinophils % (Auto) 3 % (0-10); Hematocrit 26.4 % (41.0-53.0); Hemoglobin 9.2 g/dL (13.5-16.0); Immature Granulocytes Auto 0.11 Thou/mm3 (0.00-0.00); Lymphocytes # (Auto) 0.7 Thou/mm3 (1.0-4.8); Lymphocytes % (Auto) 13 % (10-50); Mean Corpuscular HGB Conc 34.8 g/dl (31.0-37.0); Mean Corpuscular Hemoglobin 34.3 pg (25.0-35.0); Mean Corpuscular Volume 99 fL (80-100); Monocytes # (Auto) 0.5 Thou/mm3 (0.0-0.8); Monocytes % (Auto) 9 % (0-12); Neutrophils # (Auto) 3.8 Thou/mm3 (1.8-7.7); Neutrophils % (Auto) 72 % (37-80); Nucleated Red Blood Cell # 0.03 Thou/mm3 (0.00-0.00); Nucleated Red Blood Cell % 1 /100 WBC (0); RDW Standard Deviation 55.4 fL (35.1-43.9); Red Blood Count 2.68 Miln/mm3 (4.50-5.90); White Blood Count 5.2 Thou/mm3 (3.8-10.6)
[2025-09-23 06:12] LABS: Alanine Aminotransferase 41 U/L (10-49); Albumin, Serum 2.3 gm/dL (3.5-5.0); Albumin/Globulin Ratio 0.7 (1.2-2.2); Alkaline Phosphatase 136 U/L (46-116); Anion Gap 8 (7-16); Aspartate Amino Transferase 94 U/L (0-34); BUN/Creatinine Ratio 18 Ratio (12-20); Bilirubin,Total 5.5 mg/dL (0.3-1.2); Blood Urea Nitrogen 18 mg/dL (9-23); Calcium 8.0 mg/dL (8.3-10.6); Calcium (Corrected) 9.4 mg/dL (8.5-10.1); Carbon Dioxide 26.7 mMol/L (20.0-31.0); Chloride 105 mMol/L (98-107); Creatinine (Component) 1.0 mg/dL (0.6-1.3); Estimated Creatinine Clearance 79.5 mL/min (>60); Globulin 3.5 gm/dL (2.3-3.5); Glucose 143 mg/dL (74-106); Magnesium 2.1 mg/dL (1.6-2.6); Osmolality,Calculated 283 (275-295); Phosphorous 3.4 mg/dL (2.4-5.1); Potassium 3.6 mMol/L (3.4-5.1); Sodium 140 mMol/L (136-145); Total Protein 5.8 gm/dL (5.7-8.2); eGFR > 60 See Note
[2025-09-23 06:13] LABS: Platelet Count 66 Thou/mm3 (140-440)
[2025-09-23 06:14] LABS: Slide Review Platelets confirmed
[2025-09-23] MEDS: cefTRIAXone/D5w 1gm IV premix 1 GM/50 ML BAG IV (08:29)
[2025-09-23] MEDS: INSULIN LISPRO (AdmeLOG) 1 UNIT/0.01 ML UNIT SC ×3 (11:39→20:00)
--- NOTE | 2025-09-23 14:31 | ESPR_ITS ---
<Statement entered by Reena Painting MD - 09/23/25 14:58> In summary: A 49-year-old male with history of cirrhosis, esophageal varices bleed with previous banding a month ago, T2DM, presenting with hematemesis and melena. Diagnosed with acute upper GI bleed. EGD showed grade 3 esophageal varices which were banded, currently on PROTONIX BID and OCTREOTIDE drip unti 09/26. Hemoglobin remained stable otherwise. I?ve reviewed the note and agree with this assessment and plan, with the exceptions outlined above. I personally went over the labs, imaging, home medications, and prior records, and examined the patient. The case was also reviewed with the attending physician. Please note: this document was transcribed using voice recognition technology; minor inaccuracies may be present. Reena Painting DO PGY II Documentation for date of: 09/23/25 Subjective Subjective Interval history: No acute events overnight. The patient was seen at the bedside this morning and reports feeling well, with no current complaints. An EKG was performed by Dr. Barclay yesterday, and esophageal varices were banded. The patient is tolerating the liquid diet and has been advanced to a low-sodium diet as per GI recommendations. The patient continues to be on the octreotide drip, which will be maintained for a total of five days, with three more days remaining. The patient's last bowel movement was this morning at 8 AM, and he reports ongoing melena, likely residual from the varices. His hemoglobin is low but stable at 9.2. Will continue to monitor hemoglobin. Patient's home medications including Lasix, Propranolol, and Spironolactone. Given the patient's soft blood pressure, will hold off on resuming these medications for now. Exam Vital Signs Temp Pulse Resp BP Pulse Ox O2 Del Method O2 Flow Rate 97.6 F 95 18 118/81 97 Room Air 3 09/23/25 11:52 09/23/25 12:00 09/23/25 11:52 09/23/25 11:52 09/23/25 11:52 09/23/25 11:52 09/22/25 20:25 Narrative Exam Physical Exam General: Awake and in no acute distress. HEENT: Normocephalic, atraumatic, extraocular movements intact, pupils equal and reactive to light. Scleral icterus. Heart: Regular rate and rhythm, no murmurs, rubs or gallops. Lungs: Clear to auscultation with no wheezing or crackles bilaterally. Non- labored respirations, symmetric chest rise, no use of accessory muscles. Abdomen: Soft, distended, nontender. No guarding or rebound tenderness. Neurologic: Alert and oriented x3, no gross neurological deficit, and patient able to move all 4 extremities. Extremities: No edema, clubbing or cyanosis. No joint deformity. 2+ radial and dorsalis pedis pulses bilaterally. Skin: Warm and dry without rash. Jaundiced. Psychiatric: Cooperative, appropriate mood and affect. Objective Labs 09/23/25 04:24 09/23/25 04:24 Labs: Laboratory Results - last 24 hr 09/22/25 09/23/25 16:04 04:24 WBC 5.2 RBC 2.68 L Hgb 9.1 L D 9.2 L Hct 26.8 L 26.4 L MCV 99 MCH 34.3 MCHC 34.8 RDW Std Deviation 55.4 H Plt Count 66 L Neut % (Auto) 72 Lymph % (Auto) 13 [place] % (Auto) 9 Eos % (Auto) 3 Baso % (Auto) 1 Neut # (Auto) 3.8 Lymph # (Auto) 0.7 L [place] # (Auto) 0.5 Eos # (Auto) 0.2 Baso # (Auto) 0.0 Immature Gran # (Auto) 0.11 H Absolute Nucleated RBC 0.03 H Immature Gran % 2 H Nucleated RBC % 1 H Sodium 140 Potassium 3.6 Chloride 105 Carbon Dioxide 26.7 Anion Gap 8 BUN 18 Creatinine 1.0 Estim Creat Clear Calc 79.5 eGFR > 60 BUN/Creatinine Ratio 18 Glucose 143 H Calculated Osmolality 283 Calcium 8.0 L Corrected Calcium 9.4 Phosphorus 3.4 Magnesium 2.1 Total Bilirubin 5.5 H AST 94 H ALT 41 Alkaline Phosphatase 136 H Total Protein 5.8 Albumin 2.3 L Globulin 3.5 Albumin/Globulin Ratio 0.7 L Misc Test Result Platelets confirmed Quality Measures Quality Measures none Assessment & Plan Assessment Current Active Medications: Generic Name Dose Route Start Last Admin Trade Name Freq PRN Reason Stop Dose Admin Acetaminophen 650 mg 09/21/25 05:56 Acetaminophen 325 Mg Tablet PO 10/21/25 05:55 Q6H PRN Fever >100.4 Dextrose 25 ml 09/21/25 06:24 Dextrose 50%-Water Inj 50 Ml Syringe IV 10/21/25 06:23 Q15MIN PRN BG 50-70 responsive npo pt Dextrose 50 ml 09/21/25 06:24 Dextrose 50%-Water Inj 50 Ml Syringe IV 10/21/25 06:23 Q15MIN PRN BG <50 OR BG <70 & pt unresponsive Glucagon 1 mg 09/21/25 06:24 Glucagon Inj 1 Mg Vial IM Q15MIN PRN BG <70, and no IV access Ceftriaxone Sodium/Dextrose 1 gm in 50 mls @ 100 mls/hr 09/22/25 09:00 09/23/25 08:29 Rocephin/D5w 1gm Iv Premix IV 09/29/25 08:59 100 mls/hr QDAY YOAN Administration Octreotide Acetate 1,000 mcg/ 102 mls @ 5.1 mls/hr 09/22/25 02:02 09/22/25 23:13 Sodium Chloride IV 09/27/25 02:01 50 mcg/hr .Q20H YOAN 5.1 mls/hr Protocol Administration 50 MCG/HR Influenza Virus Vaccine Quadrival 0.5 ml 09/23/25 20:00 Influenza Virus 0.5 Ml Syringe IMi 09/23/25 20:01 .ONCE ONE Insulin Human Lispro 0 unit 09/23/25 11:30 09/23/25 11:39 Insulin Lispro (Admelog) 1 Unit/0.01 Ml Unit SC 10/23/25 11:29 2 unit ACHS YOAN Administration Protocol Ondansetron HCl 4 mg 09/21/25 12:00 Ondansetron Inj 2 Mg/Ml Inj 2 Ml IVP 10/21/25 11:59 Q6H PRN NAUSEA OR VOMITING Protocol Pantoprazole Sodium 40 mg 09/21/25 09:00 09/23/25 08:29 Pantoprazole Inj 40 Mg Vial IVP 10/21/25 08:59 40 mg Q12HR YOAN Administration Plan 49-year-old Korean-speaking male with a history of cirrhosis secondary to alcohol use disorder, esophageal varices (status post 4 band placements), and type 2 diabetes presented with hematemesis and melena, admitted for acute upper GI bleed. #Acute upper GI bleed #Grade III esophageal varices #History of esophageal varices status post band placement #Acute on chronic normocytic anemia - Patient presented after 4 episodes of hematemesis and 2 days of melena. - Hemoglobin 9.3 on arrival. - EGD on 08/31/2025 showed grade 2 esophageal varices with red brinda signs. 4 bands were successfully placed. The patient was treated with octreotide for 5 days. - Patient was advised to follow-up with outpatient GI though patient mentioned he did not follow-up. - In the ED, patient received pantoprazole 80 mg IV x1, octreotide 50 mcg IV x 1, Zofran 4 mg IV push, and was started on a pantoprazole drip. - 1 unit pRBC transfused on 09/22 with repeat hemoglobin 9.1 from 7.5. - EKG on 09/22/2025 showed grade 3 esophageal varices, which were banded. 1 varix in the distal esophagus is completely ulcerated from the previous band ligation and the necrosed tissue is about to slough off. Plan: * IV Protonix 40 mg every 12 hours. * Octreotide drip for 5 days total (09/22-09/26). * Advance to low sodium diet. * Ceftriaxone 1 g daily (09/22-) * Monitor H&H. * GI consulted - appreciate recs. #Cirrhosis, secondary to #Alcohol use disorder #Transaminitis #Hyperbilirubinemia #Thrombocytopenia #Hypoalbumenia - Patient presents with advanced liver disease, evidenced by elevated bilirubin, transaminitis, and thrombocytopenia. - Labs: T. bili 7.1. PT 14.6. INR 1.4. Albumin 2.8. Plt 112. AST 106. ALT 52. - Patient is alert and oriented with no signs of hepatic encephalopathy. - MELD Score 19, 6% estimated 3-month mortality. - Maddrey Score 18.1, good prognosis. - Child Harding score 8 class B. - Patient takes Lasix, propranolol, spironolactone at home. Plan: * Hold Lasix, propranolol, and spironolactone for now, as blood pressure soft. * Continue to monitor liver function tests, coagulation parameters, and platelet count closely. * Continue GI management for cirrhosis-related complications. * Continue to monitor mental status, with no current signs of encephalopathy. #Dwn-[id number] type 2 diabetes - Patient takes Farxiga at home. Plan: * Insulin sliding scale. Health Maintenance Disposition: med surg for GI bleed, octreotide drip DVT prophylaxis: SCDs, avoiding chemical prophylaxis in the presence of upper GI bleed GI prophylaxis: Pantoprazole 40 mg IV every 12 hours Diet: Low sodium Landaverde: none Lines: Peripheral IV CODE STATUS: FULL --- Patient plan of care was discussed with the senior resident, Dr. Painting, and attending physician, Dr. Miranda. Mauro Schrader DO PGY-1 Attending Provider Attestation/Addendum I have seen and examined the patient. I was physically present for the sosa portions of the services provided including history, physical exam, diagnosis, treatment plans and orders. I agree with assessment and plan of care as documented by residents. Even though this this note was carefully revised there may still be minor errors in citizen participation specialist due to voice recognition software. Barrington Miranda MD
[2025-09-23] MEDS: OCTREOTIDE ACET INJ 1,000 MCG in SODIUM CHLORIDE 0.9% 100 ML 5.1 MCG IV (17:02)
--- NOTE | 2025-09-23 19:01 | PD.IMPROG ---
Documentation for date of: 09/23/25 Subjective Subjective Interval history: Patient evaluated Hemoglobin hematocrit 9.2 and 26.4 upper endoscopy yesterday showing 3+ esophageal varices requiring band ligation and in total 3 bands were put in Hypertensive portal gastropathy with mucosal oozing of blood patient on octreotide infusion Exam Vital Signs Temp Pulse Resp BP Pulse Ox O2 Del Method O2 Flow Rate 97.6 F 90 18 113/80 97 Room Air 3 09/23/25 16:00 09/23/25 16:00 09/23/25 16:00 09/23/25 16:00 09/23/25 16:00 09/23/25 16:00 09/22/25 20:25 Objective Labs 09/23/25 04:24 09/23/25 04:24 Labs: Laboratory Results - last 24 hr 09/23/25 04:24 WBC 5.2 RBC 2.68 L Hgb 9.2 L Hct 26.4 L MCV 99 MCH 34.3 MCHC 34.8 RDW Std Deviation 55.4 H Plt Count 66 L Neut % (Auto) 72 Lymph % (Auto) 13 [place] % (Auto) 9 Eos % (Auto) 3 Baso % (Auto) 1 Neut # (Auto) 3.8 Lymph # (Auto) 0.7 L [place] # (Auto) 0.5 Eos # (Auto) 0.2 Baso # (Auto) 0.0 Immature Gran # (Auto) 0.11 H Absolute Nucleated RBC 0.03 H Immature Gran % 2 H Nucleated RBC % 1 H Sodium 140 Potassium 3.6 Chloride 105 Carbon Dioxide 26.7 Anion Gap 8 BUN 18 Creatinine 1.0 Estim Creat Clear Calc 79.5 eGFR > 60 BUN/Creatinine Ratio 18 Glucose 143 H Calculated Osmolality 283 Calcium 8.0 L Corrected Calcium 9.4 Phosphorus 3.4 Magnesium 2.1 Total Bilirubin 5.5 H AST 94 H ALT 41 Alkaline Phosphatase 136 H Total Protein 5.8 Albumin 2.3 L Globulin 3.5 Albumin/Globulin Ratio 0.7 L Misc Test Result Platelets confirmed Impressions Impression: Acute upper GI bleed secondary to esophageal varices requiring band ligation Hypertensive portal gastropathy Advance diet Monitor CBC Continue octreotide infusion Assessment & Plan A&P Narrative Hematemesis Melena Posthemorrhagic anemia in the setting of cirrhotic liver disease secondary to alcohol Plan Agree with the current management with IV octreotide IV Protonix and blood transfusion N.p.o. midnight tonight Consent obtained for fiberoptic esophagogastroduodenoscopy with possible therapeutic intervention under intravenous moderate sedation scheduled for tomorrow Thank you for the opportunity to participate in the care of this patient Time Spent With Patient Time: Total time spent is greater than 50% in coordination of care (as documented) at patient's floor/unit and/or counseling patient:
[2025-09-24] VITALS (8 sets, daily range): BP systolic 102–123; BP diastolic 62–92; PULSE 71–90; RESP 15–96; TEMP 36.4–37.1; O2SAT 94–97; BMI 33.1
[2025-09-24 05:58] LABS: Basophils # (Auto) 0.0 Thou/mm3 (0.0-0.2); Basophils % (Auto) 1 % (0-2.5); Eosinophils # (Auto) 0.2 Thou/mm3 (0.0-0.5); Eosinophils % (Auto) 3 % (0-10); Hematocrit 27.4 % (41.0-53.0); Hemoglobin 9.4 g/dL (13.5-16.0); Immature Granulocytes Auto 0.14 Thou/mm3 (0.00-0.00); Lymphocytes # (Auto) 0.8 Thou/mm3 (1.0-4.8); Lymphocytes % (Auto) 11 % (10-50); Mean Corpuscular HGB Conc 34.3 g/dl (31.0-37.0); Mean Corpuscular Hemoglobin 34.3 pg (25.0-35.0); Mean Corpuscular Volume 100 fL (80-100); Monocytes # (Auto) 0.6 Thou/mm3 (0.0-0.8); Monocytes % (Auto) 9 % (0-12); Neutrophils # (Auto) 5.2 Thou/mm3 (1.8-7.7); Neutrophils % (Auto) 74 % (37-80); Nucleated Red Blood Cell # 0.00 Thou/mm3 (0.00-0.00); Nucleated Red Blood Cell % 0 /100 WBC (0); Platelet Count 83 Thou/mm3 (140-440); RDW Standard Deviation 54.7 fL (35.1-43.9); Red Blood Count 2.74 Miln/mm3 (4.50-5.90); White Blood Count 6.9 Thou/mm3 (3.8-10.6)
[2025-09-24 06:23] LABS: Alanine Aminotransferase 41 U/L (10-49); Albumin, Serum 2.6 gm/dL (3.5-5.0); Albumin/Globulin Ratio 0.7 (1.2-2.2); Alkaline Phosphatase 139 U/L (46-116); Anion Gap 9 (7-16); Aspartate Amino Transferase 98 U/L (0-34); BUN/Creatinine Ratio 14 Ratio (12-20); Bilirubin,Total 5.7 mg/dL (0.3-1.2); Blood Urea Nitrogen 15 mg/dL (9-23); Calcium 8.0 mg/dL (8.3-10.6); Calcium (Corrected) 9.1 mg/dL (8.5-10.1); Carbon Dioxide 24.6 mMol/L (20.0-31.0); Chloride 105 mMol/L (98-107); Creatinine (Component) 1.1 mg/dL (0.6-1.3); Estimated Creatinine Clearance 80.0 mL/min (>60); Globulin 3.5 gm/dL (2.3-3.5); Glucose 158 mg/dL (74-106); Magnesium 2.0 mg/dL (1.6-2.6); Osmolality,Calculated 281 (275-295); Phosphorous 2.7 mg/dL (2.4-5.1); Potassium 3.9 mMol/L (3.4-5.1); Sodium 139 mMol/L (136-145); Total Protein 6.1 gm/dL (5.7-8.2); eGFR > 60 See Note
[2025-09-24] MEDS: cefTRIAXone/D5w 1gm IV premix 1 GM/50 ML BAG IV (09:39)
--- NOTE | 2025-09-24 09:44 | PD.RESPROC ---
PROCEDURES: Procedure Date / Time 09/24/25 0944
--- NOTE | 2025-09-24 10:29 | ESPR_ITS ---
<Statement entered by Reena Painting MD - 09/24/25 18:12> In summary: A 49-year-old male with history of cirrhosis, esophageal varices bleed with previous banding a month ago, T2DM, presenting with hematemesis and melena. Diagnosed with acute upper GI bleed. EGD showed grade 3 esophageal varices which were banded, currently on PROTONIX BID and OCTREOTIDE drip until 09/26. Hemoglobin remained stable otherwise. I?ve reviewed the note and agree with this assessment and plan, with the exceptions outlined above. I personally went over the labs, imaging, home medications, and prior records, and examined the patient. The case was also reviewed with the attending physician. Please note: this document was transcribed using voice recognition technology; minor inaccuracies may be present. Reena Painting DO PGY II Documentation for date of: 09/24/25 Subjective Subjective Interval history: No acute events overnight. The patient was seen at the bedside this morning with his . He has no complaints at this time. There is a slight increase in total bilirubin noted on today's AM labs, but the patient does not report any right upper quadrant abdominal pain. Home lactulose 10 g TID has been resumed. The patient continues on the octreotide drip and ceftriaxone 1 g, with the course scheduled to complete on 09/25. Hemoglobin remains stable. He is tolerating a low-sodium diet well. Will continue to hold home Lasix, spironolactone, and propranolol for soft blood pressure and will resume if blood pressure becomes uncontrolled. Exam Vital Signs Temp Pulse Resp BP Pulse Ox O2 Del Method O2 Flow Rate 97.6 F 81 19 118/92 H 96 Room Air 3 09/24/25 08:00 09/24/25 08:00 09/24/25 08:00 09/24/25 08:00 09/24/25 08:00 09/24/25 08:00 09/22/25 20:25 Narrative Exam Physical Exam General: Awake and in no acute distress. HEENT: Normocephalic, atraumatic, extraocular movements intact, pupils equal and reactive to light. Scleral icterus. Heart: Regular rate and rhythm, no murmurs, rubs or gallops. Lungs: Clear to auscultation with no wheezing or crackles bilaterally. Non- labored respirations, symmetric chest rise, no use of accessory muscles. Abdomen: Soft, distended, nontender. No guarding or rebound tenderness. Neurologic: Alert and oriented x3, no gross neurological deficit, and patient able to move all 4 extremities. Extremities: No edema, clubbing or cyanosis. No joint deformity. 2+ radial and dorsalis pedis pulses bilaterally. Skin: Warm and dry without rash. Jaundiced. Psychiatric: Cooperative, appropriate mood and affect. Objective Labs 09/25/25 05:15 09/25/25 05:15 Labs: Laboratory Results - last 24 hr 09/21/25 09/24/25 04:56 04:25 WBC 6.9 RBC 2.74 L Hgb 9.4 L Hct 27.4 L MCV 100 MCH 34.3 MCHC 34.3 RDW Std Deviation 54.7 H Plt Count 83 L D Neut % (Auto) 74 Lymph % (Auto) 11 [place] % (Auto) 9 Eos % (Auto) 3 Baso % (Auto) 1 Neut # (Auto) 5.2 Lymph # (Auto) 0.8 L [place] # (Auto) 0.6 Eos # (Auto) 0.2 Baso # (Auto) 0.0 Immature Gran # (Auto) 0.14 H Absolute Nucleated RBC 0.00 Immature Gran % 2 H Nucleated RBC % 0 Sodium 139 Potassium 3.9 Chloride 105 Carbon Dioxide 24.6 Anion Gap 9 BUN 15 Creatinine 1.1 Estim Creat Clear Calc 80.0 eGFR > 60 BUN/Creatinine Ratio 14 Glucose 158 H Calculated Osmolality 281 Calcium 8.0 L Corrected Calcium 9.1 Phosphorus 2.7 Magnesium 2.0 Total Bilirubin 5.7 H AST 98 H ALT 41 Alkaline Phosphatase 139 H Total Protein 6.1 Albumin 2.6 L Globulin 3.5 Albumin/Globulin Ratio 0.7 L Crossmatch See Detail Quality Measures Quality Measures none Assessment & Plan Assessment Current Active Medications: Generic Name Dose Route Start Last Admin Trade Name Freq PRN Reason Stop Dose Admin Acetaminophen 650 mg 09/21/25 05:56 Acetaminophen 325 Mg Tablet PO 10/21/25 05:55 Q6H PRN Fever >100.4 Dextrose 25 ml 09/21/25 06:24 Dextrose 50%-Water Inj 50 Ml Syringe IV 10/21/25 06:23 Q15MIN PRN BG 50-70 responsive npo pt Dextrose 50 ml 09/21/25 06:24 Dextrose 50%-Water Inj 50 Ml Syringe IV 10/21/25 06:23 Q15MIN PRN BG <50 OR BG <70 & pt unresponsive Glucagon 1 mg 09/21/25 06:24 Glucagon Inj 1 Mg Vial IM Q15MIN PRN BG <70, and no IV access Ceftriaxone Sodium/Dextrose 1 gm in 50 mls @ 100 mls/hr 09/22/25 09:00 09/24/25 09:39 Rocephin/D5w 1gm Iv Premix IV 09/27/25 08:59 100 mls/hr QDAY YOAN Administration Octreotide Acetate 1,000 mcg/ 102 mls @ 5.1 mls/hr 09/22/25 02:02 09/23/25 17:02 Sodium Chloride IV 09/27/25 02:01 50 mcg/hr .Q20H YOAN 5.1 mls/hr Protocol Administration 50 MCG/HR Insulin Human Lispro 0 unit 09/23/25 11:30 09/24/25 07:32 Insulin Lispro (Admelog) 1 Unit/0.01 Ml Unit SC 10/23/25 11:29 Not Given ACHS YOAN Protocol Ondansetron HCl 4 mg 09/21/25 12:00 Ondansetron Inj 2 Mg/Ml Inj 2 Ml IVP 10/21/25 11:59 Q6H PRN NAUSEA OR VOMITING Protocol Pantoprazole Sodium 40 mg 09/21/25 09:00 09/24/25 09:40 Pantoprazole Inj 40 Mg Vial IVP 10/21/25 08:59 40 mg Q12HR YOAN Administration Plan 49-year-old Pashto-speaking male with a history of cirrhosis secondary to alcohol use disorder, esophageal varices (status post 4 band placements), and type 2 diabetes presented with hematemesis and melena, admitted for acute upper GI bleed. #Acute upper GI bleed #Grade III esophageal varices #History of esophageal varices status post band placement #Acute on chronic normocytic anemia - Patient presented after 4 episodes of hematemesis and 2 days of melena. - Hemoglobin 9.3 on arrival. - EGD on 08/31/2025 showed grade 2 esophageal varices with red brinda signs. 4 bands were successfully placed. The patient was treated with octreotide for 5 days. - Patient was advised to follow-up with outpatient GI though patient mentioned he did not follow-up. - In the ED, patient received pantoprazole 80 mg IV x1, octreotide 50 mcg IV x 1, Zofran 4 mg IV push, and was started on a pantoprazole drip. - 1 unit pRBC transfused on 09/22 with repeat hemoglobin 9.1 from 7.5. - EKG on 09/22/2025 showed grade 3 esophageal varices, which were banded. 1 varix in the distal esophagus is completely ulcerated from the previous band ligation and the necrosed tissue is about to slough off. Plan: * IV Protonix 40 mg every 12 hours. * Octreotide drip for 5 days total (09/21-09/25). * Ceftriaxone 1 g daily (09/21-09/25). * Advance to low sodium diet. * Monitor H&H. * GI consulted - appreciate recs. #Cirrhosis, secondary to #Alcohol use disorder #Transaminitis #Hyperbilirubinemia #Thrombocytopenia #Hypoalbumenia - Patient presents with advanced liver disease, evidenced by elevated bilirubin, transaminitis, and thrombocytopenia. - Labs: T. bili 7.1. PT 14.6. INR 1.4. Albumin 2.8. Plt 112. AST 106. ALT 52. - Patient is alert and oriented with no signs of hepatic encephalopathy. - MELD Score 19, 6% estimated 3-month mortality. - Maddrey Score 18.1, good prognosis. - Child Harding score 8 class B. - Patient takes Lasix, propranolol, spironolactone at home. Plan: * Hold Lasix, propranolol, and spironolactone for now, as blood pressure soft. * Continue to monitor liver function tests, coagulation parameters, and platelet count closely. * Continue GI management for cirrhosis-related complications. * Continue to monitor mental status, with no current signs of encephalopathy. * Resumed home lactulose 10g PO TID. #Kkc-qdixekw-bnowrvkns type 2 diabetes - Patient takes Farxiga at home. Plan: * Insulin sliding scale. Health Maintenance Disposition: med surg, octreotide drip and ceftriaxone until 09/25. DVT prophylaxis: SCDs, avoiding chemical prophylaxis in the presence of upper GI bleed. GI prophylaxis: Pantoprazole 40 mg IV every 12 hours. Diet: Low sodium Landaverde: none Lines: Peripheral IV CODE STATUS: FULL --- Patient plan of care was discussed with the senior resident, Dr. Painting, and attending physician, Dr. Mckeon. Mauro Schrader DO PGY-1 Attending Provider Attestation/Addendum I, Ramandeep Mckeon DO, attest that I was physically present for the sosa portions of the service and evaluated the patient with the resident and I reviewed and discussed the case with the resident and agree with the resident's findings and plans of care as documented above Patient seen and evaluated this AM. He states that he is doing well. He denies any pain in his abdomen. He remains on octreotide at this time due to grade 3 esophageal varices, s/p banding. Tolerating diet. To complete octreotide drip on 09/25. Anticipate DC within next 24h.
[2025-09-24] MEDS: INSULIN LISPRO (AdmeLOG) 1 UNIT/0.01 ML UNIT SC ×3 (11:46→20:42)
--- NOTE | 2025-09-24 14:19 | PC.SS ---
Mannie Ojeda is a 49 year-old male admitted to [facility] for Upper GI Bleed. SS conducted bedside contact with the patient to complete initial assessment and to discuss discharge planning. Role and reason explained. Patient confirmed demographic information. Patient identifies his Mariposa Tubbs [phone] as his surrogate decision maker. Pt states he is able to complete all ADL?s independent. Pt does not possesses any DME. Pts PCP is Macario Farooq. [facility] choice [facility]. Discharge options discussed and the pt wishes to return home.? Pt will provide transport. No further intervention required at this time, social service assistant would be available to address any further concerns. DC Plan: Home Contact: Mariposa Address: Confirmed on face sheet PCP: [facility]
--- NOTE | 2025-09-24 14:21 | PC.SS ---
Rounding: Octriotide for one more day
[2025-09-24] MEDS: OCTREOTIDE ACET INJ 1,000 MCG in SODIUM CHLORIDE 0.9% 100 ML 5.1 MCG IV (14:44)
[2025-09-24] MEDS: LACTULOSE SYRUP 20 GM/30 ML UDC 10 GM PO ×2 (14:47→20:41)
--- NOTE | 2025-09-24 18:04 | PD.IMPROG ---
Documentation for date of: 09/24/25 Subjective Subjective Interval history: Patient evaluated Upper endoscopy led to banding of the bleeding esophageal varices in total 3 bands were put in Exam Vital Signs Temp Pulse Resp BP Pulse Ox O2 Del Method O2 Flow Rate 98.2 F 85 18 103/63 94 L Room Air 3 09/24/25 16:00 09/24/25 16:00 09/24/25 16:00 09/24/25 16:00 09/24/25 16:00 09/24/25 16:00 09/24/25 12:00 Objective Labs 09/24/25 04:25 09/24/25 04:25 Labs: Laboratory Results - last 24 hr 09/21/25 09/24/25 04:56 04:25 WBC 6.9 RBC 2.74 L Hgb 9.4 L Hct 27.4 L MCV 100 MCH 34.3 MCHC 34.3 RDW Std Deviation 54.7 H Plt Count 83 L D Neut % (Auto) 74 Lymph % (Auto) 11 [place] % (Auto) 9 Eos % (Auto) 3 Baso % (Auto) 1 Neut # (Auto) 5.2 Lymph # (Auto) 0.8 L [place] # (Auto) 0.6 Eos # (Auto) 0.2 Baso # (Auto) 0.0 Immature Gran # (Auto) 0.14 H Absolute Nucleated RBC 0.00 Immature Gran % 2 H Nucleated RBC % 0 Sodium 139 Potassium 3.9 Chloride 105 Carbon Dioxide 24.6 Anion Gap 9 BUN 15 Creatinine 1.1 Estim Creat Clear Calc 80.0 eGFR > 60 BUN/Creatinine Ratio 14 Glucose 158 H Calculated Osmolality 281 Calcium 8.0 L Corrected Calcium 9.1 Phosphorus 2.7 Magnesium 2.0 Total Bilirubin 5.7 H AST 98 H ALT 41 Alkaline Phosphatase 139 H Total Protein 6.1 Albumin 2.6 L Globulin 3.5 Albumin/Globulin Ratio 0.7 L Crossmatch See Detail Impressions Impression: Upper GI bleed secondary to esophageal variceal bleeding status post band ligation Acute posthemorrhagic anemia Continue current management Assessment & Plan A&P Narrative Hematemesis Melena Posthemorrhagic anemia in the setting of cirrhotic liver disease secondary to alcohol Plan Agree with the current management with IV octreotide IV Protonix and blood transfusion N.p.o. midnight tonight Consent obtained for fiberoptic esophagogastroduodenoscopy with possible therapeutic intervention under intravenous moderate sedation scheduled for tomorrow Thank you for the opportunity to participate in the care of this patient Time Spent With Patient Time: Total time spent is greater than 50% in coordination of care (as documented) at patient's floor/unit and/or counseling patient:
[2025-09-25] VITALS (7 sets, daily range): BP systolic 103–122; BP diastolic 65–85; PULSE 74–88; RESP 16–17; TEMP 36.4–36.9; O2SAT 96–97; BMI 33.1
[2025-09-25] MEDS: LACTULOSE SYRUP 20 GM/30 ML UDC 10 GM PO ×3 (05:09→21:07)
[2025-09-25 06:04] LABS: Basophils # (Auto) 0.1 Thou/mm3 (0.0-0.2); Basophils % (Auto) 1 % (0-2.5); Eosinophils # (Auto) 0.2 Thou/mm3 (0.0-0.5); Eosinophils % (Auto) 3 % (0-10); Hematocrit 27.6 % (41.0-53.0); Hemoglobin 9.7 g/dL (13.5-16.0); Immature Granulocytes Auto 0.11 Thou/mm3 (0.00-0.00); Lymphocytes # (Auto) 0.7 Thou/mm3 (1.0-4.8); Lymphocytes % (Auto) 10 % (10-50); Mean Corpuscular HGB Conc 35.1 g/dl (31.0-37.0); Mean Corpuscular Hemoglobin 34.8 pg (25.0-35.0); Mean Corpuscular Volume 99 fL (80-100); Monocytes # (Auto) 0.6 Thou/mm3 (0.0-0.8); Monocytes % (Auto) 9 % (0-12); Neutrophils # (Auto) 4.8 Thou/mm3 (1.8-7.7); Neutrophils % (Auto) 75 % (37-80); Nucleated Red Blood Cell # 0.00 Thou/mm3 (0.00-0.00); Nucleated Red Blood Cell % 0 /100 WBC (0); Platelet Count 80 Thou/mm3 (140-440); RDW Standard Deviation 55.0 fL (35.1-43.9); Red Blood Count 2.79 Miln/mm3 (4.50-5.90); White Blood Count 6.4 Thou/mm3 (3.8-10.6)
[2025-09-25 06:40] LABS: Alanine Aminotransferase 43 U/L (10-49); Albumin, Serum 2.6 gm/dL (3.5-5.0); Albumin/Globulin Ratio 0.7 (1.2-2.2); Alkaline Phosphatase 148 U/L (46-116); Anion Gap 8 (7-16); Aspartate Amino Transferase 104 U/L (0-34); BUN/Creatinine Ratio 11 Ratio (12-20); Bilirubin,Total 6.0 mg/dL (0.3-1.2); Blood Urea Nitrogen 11 mg/dL (9-23); Calcium 8.0 mg/dL (8.3-10.6); Calcium (Corrected) 9.1 mg/dL (8.5-10.1); Carbon Dioxide 24.6 mMol/L (20.0-31.0); Chloride 106 mMol/L (98-107); Creatinine (Component) 1.0 mg/dL (0.6-1.3); Estimated Creatinine Clearance 88.0 mL/min (>60); Globulin 3.6 gm/dL (2.3-3.5); Glucose 147 mg/dL (74-106); Magnesium 1.9 mg/dL (1.6-2.6); Osmolality,Calculated 279 (275-295); Phosphorous 3.0 mg/dL (2.4-5.1); Potassium 3.6 mMol/L (3.4-5.1); Sodium 139 mMol/L (136-145); Total Protein 6.2 gm/dL (5.7-8.2); eGFR > 60 See Note
[2025-09-25] MEDS: cefTRIAXone/D5w 1gm IV premix 1 GM/50 ML BAG IV (08:34)
[2025-09-25] MEDS: INSULIN LISPRO (AdmeLOG) 1 UNIT/0.01 ML UNIT SC (11:25)
[2025-09-25] MEDS: SIMETHICONE 80 MG CHEW PO (13:20)
[2025-09-25] MEDS: OCTREOTIDE ACET INJ 1,000 MCG in SODIUM CHLORIDE 0.9% 100 ML 5.1 MCG IV (13:20)
--- NOTE | 2025-09-25 13:31 | ESPR_ITS ---
<Statement entered by Christopher Vital MD - 09/25/25 15:37> Patient HgB stable at 9.7, tolerating p.o and having bowel movements. Patient needs to complete 5th day of octreotide which will be finished tomorrow. Blood pressure continues to be soft, will hold of lasix and spironolactone. I discussed with and supervised the technical intern physician involved in the care of this patient. Patient assessment and plan was discussed with entire medicine team, including my attending. I agree with the assessment and plan as documented by technical intern doctor. Patient care was discussed with my attending physician Dr. Linda Vital, PGY-3 Documentation for date of: 09/25/25 Subjective Subjective Interval history: No acute events overnight. The patient was seen at the bedside this morning and reports no complaints. The patient had two bowel movements this morning and is currently on lactulose. Simethicone was added for reported gas. The octreotide drip is anticipated to be completed on 09/26 early in the morning. Will continue ceftriaxone 1 g daily through discharge (currently day 4). The patient is tolerating a low-sodium diet well. Hemoglobin remains stable at 9.7. Will continue to hold home Lasix, spironolactone, and propranolol due to soft blood pressures, with plans to resume if blood pressure becomes uncontrolled. Exam Vital Signs Temp Pulse Resp BP Pulse Ox O2 Del Method O2 Flow Rate 98.4 F 86 16 109/81 97 Room Air 3 09/25/25 08:00 09/25/25 12:00 09/25/25 08:00 09/25/25 08:00 09/25/25 08:00 09/25/25 08:00 09/24/25 12:00 Narrative Exam Physical Exam General: Awake and in no acute distress. HEENT: Normocephalic, atraumatic, extraocular movements intact, pupils equal and reactive to light. Scleral icterus. Heart: Regular rate and rhythm, no murmurs, rubs or gallops. Lungs: Clear to auscultation with no wheezing or crackles bilaterally. Non- labored respirations, symmetric chest rise, no use of accessory muscles. Abdomen: Soft, distended, nontender. No guarding or rebound tenderness. Neurologic: Alert and oriented x3, no gross neurological deficit, and patient able to move all 4 extremities. Extremities: No edema, clubbing or cyanosis. No joint deformity. 2+ radial and dorsalis pedis pulses bilaterally. Skin: Warm and dry without rash. Jaundiced. Psychiatric: Cooperative, appropriate mood and affect. Objective Labs 09/25/25 05:15 09/25/25 05:15 Labs: Laboratory Results - last 24 hr 09/25/25 05:15 WBC 6.4 RBC 2.79 L Hgb 9.7 L Hct 27.6 L MCV 99 MCH 34.8 MCHC 35.1 RDW Std Deviation 55.0 H Plt Count 80 L Neut % (Auto) 75 Lymph % (Auto) 10 [place] % (Auto) 9 Eos % (Auto) 3 Baso % (Auto) 1 Neut # (Auto) 4.8 Lymph # (Auto) 0.7 L [place] # (Auto) 0.6 Eos # (Auto) 0.2 Baso # (Auto) 0.1 Immature Gran # (Auto) 0.11 H Absolute Nucleated RBC 0.00 Immature Gran % 2 H Nucleated RBC % 0 Sodium 139 Potassium 3.6 Chloride 106 Carbon Dioxide 24.6 Anion Gap 8 BUN 11 Creatinine 1.0 Estim Creat Clear Calc 88.0 eGFR > 60 BUN/Creatinine Ratio 11 L Glucose 147 H Calculated Osmolality 279 Calcium 8.0 L Corrected Calcium 9.1 Phosphorus 3.0 Magnesium 1.9 Total Bilirubin 6.0 H AST 104 H ALT 43 Alkaline Phosphatase 148 H Total Protein 6.2 Albumin 2.6 L Globulin 3.6 H Albumin/Globulin Ratio 0.7 L Quality Measures Quality Measures none Assessment & Plan Assessment Current Active Medications: Generic Name Dose Route Start Last Admin Trade Name Thaddeus PRN Reason Stop Dose Admin Acetaminophen 650 mg 09/21/25 05:56 Acetaminophen 325 Mg Tablet PO 10/21/25 05:55 Q6H PRN Fever >100.4 Dextrose 25 ml 09/21/25 06:24 Dextrose 50%-Water Inj 50 Ml Syringe IV 10/21/25 06:23 Q15MIN PRN BG 50-70 responsive npo pt Dextrose 50 ml 09/21/25 06:24 Dextrose 50%-Water Inj 50 Ml Syringe IV 10/21/25 06:23 Q15MIN PRN BG <50 OR BG <70 & pt unresponsive Glucagon 1 mg 09/21/25 06:24 Glucagon Inj 1 Mg Vial IM Q15MIN PRN BG <70, and no IV access Ceftriaxone Sodium/Dextrose 1 gm in 50 mls @ 100 mls/hr 09/22/25 09:00 09/25/25 08:34 Rocephin/D5w 1gm Iv Premix IV 09/27/25 08:59 100 mls/hr QDAY YOAN Administration Octreotide Acetate 1,000 mcg/ 102 mls @ 5.1 mls/hr 09/22/25 02:02 09/25/25 13:20 Sodium Chloride IV 09/26/25 02:01 50 mcg/hr .Q20H YOAN 5.1 mls/hr Protocol Administration 50 MCG/HR Insulin Human Lispro 0 unit 09/23/25 11:30 09/25/25 11:25 Insulin Lispro (Admelog) 1 Unit/0.01 Ml Unit SC 10/23/25 11:29 2 unit ACHS YOAN Administration Protocol Lactulose 10 gm 09/24/25 14:00 09/25/25 13:20 Lactulose Syrup 20 Gm/30 Ml Udc PO 10/24/25 13:59 10 gm TID YOAN Administration Protocol Ondansetron HCl 4 mg 09/21/25 12:00 Ondansetron Inj 2 Mg/Ml Inj 2 Ml IVP 10/21/25 11:59 Q6H PRN NAUSEA OR VOMITING Protocol Pantoprazole Sodium 40 mg 09/21/25 09:00 09/25/25 08:35 Pantoprazole Inj 40 Mg Vial IVP 10/21/25 08:59 40 mg Q12HR YOAN Administration Plan 49-year-old Chilean-speaking male with a history of cirrhosis secondary to alcohol use disorder, esophageal varices (status post 4 band placements), and type 2 diabetes presented with hematemesis and melena, admitted for acute upper GI bleed. #Acute upper GI bleed #Grade III esophageal varices #History of esophageal varices status post band placement #Acute on chronic normocytic anemia - Patient presented after 4 episodes of hematemesis and 2 days of melena. - Hemoglobin 9.3 on arrival. - EGD on 08/31/2025 showed grade 2 esophageal varices with red brinda signs. 4 bands were successfully placed. The patient was treated with octreotide for 5 days. - Patient was advised to follow-up with outpatient GI though patient mentioned he did not follow-up. - In the ED, patient received pantoprazole 80 mg IV x1, octreotide 50 mcg IV x 1, Zofran 4 mg IV push, and was started on a pantoprazole drip. - 1 unit pRBC transfused on 09/22 with repeat hemoglobin 9.1 from 7.5. - EKG on 09/22/2025 showed grade 3 esophageal varices, which were banded. 1 varix in the distal esophagus is completely ulcerated from the previous band ligation and the necrosed tissue is about to slough off. Plan: * IV Protonix 40 mg every 12 hours. * Octreotide drip for 5 days total (09/21-09/26). * Ceftriaxone 1 g daily (09/22-09/26). * Advance to low sodium diet. * Monitor H&H. * GI consulted - appreciate recs. #Cirrhosis, secondary to #Alcohol use disorder #Transaminitis #Hyperbilirubinemia #Thrombocytopenia #Hypoalbumenia - Patient presents with advanced liver disease, evidenced by elevated bilirubin, transaminitis, and thrombocytopenia. - Labs: T. bili 7.1. PT 14.6. INR 1.4. Albumin 2.8. Plt 112. AST 106. ALT 52. - Patient is alert and oriented with no signs of hepatic encephalopathy. - MELD Score 19, 6% estimated 3-month mortality. - Maddrey Score 18.1, good prognosis. - Child Harding score 8 class B. - Patient takes Lasix, propranolol, spironolactone at home. Plan: * Hold Lasix, propranolol, and spironolactone for now, as blood pressure soft. * Continue to monitor liver function tests, coagulation parameters, and platelet count closely. * Continue GI management for cirrhosis-related complications. * Continue to monitor mental status, with no current signs of encephalopathy. * Resumed home lactulose 10g PO TID. * Simethicone for gas. #Ijk-ixidtne-adrqjytrh type 2 diabetes - Patient takes Farxiga at home. Plan: * Insulin sliding scale. Health Maintenance Disposition: med surg, octreotide drip and ceftriaxone until 09/26. DVT prophylaxis: SCDs, avoiding chemical prophylaxis in the presence of upper GI bleed. GI prophylaxis: Pantoprazole 40 mg IV every 12 hours. Diet: Low sodium Landaverde: none Lines: Peripheral IV CODE STATUS: FULL --- Patient plan of care was discussed with the attending physician, Dr. Mckeon. Mauro Schrader DO PGY-1 Attending Provider Attestation/Addendum IRamandeep DO, attest that I was physically present for the sosa portions of the service and evaluated the patient with the resident and I reviewed and discussed the case with the resident and agree with the resident's findings and plans of care as documented above Patient seen and evaluated this Am. He is currently on his last bag of octreotide that will complete tomorrow AM. He states he has some gas and bloating, but otherwise feels well. No Abdominal pain reported. Anticipate DC in Am once octreotide drip is complete. H/H is otherwise stable.
--- NOTE | 2025-09-25 20:26 | ESPR_ITS ---
Documentation for date of: 09/25/25 Subjective Subjective Interval history: Hemoglobin hematocrit 9.4 and 28.6 Completed octreotide Blood pressure is soft He was taken off the diuretics this is a reasonable thing to do Exam Vital Signs Temp Pulse Resp BP Pulse Ox O2 Del Method O2 Flow Rate 97.7 F 87 17 122/85 H 96 Room Air 3 09/25/25 20:00 09/25/25 20:00 09/25/25 20:00 09/25/25 20:00 09/25/25 20:00 09/25/25 20:00 09/24/25 12:00 Objective Labs 09/25/25 05:15 09/25/25 05:15 Labs: Laboratory Results - last 24 hr 09/25/25 05:15 WBC 6.4 RBC 2.79 L Hgb 9.7 L Hct 27.6 L MCV 99 MCH 34.8 MCHC 35.1 RDW Std Deviation 55.0 H Plt Count 80 L Neut % (Auto) 75 Lymph % (Auto) 10 [place] % (Auto) 9 Eos % (Auto) 3 Baso % (Auto) 1 Neut # (Auto) 4.8 Lymph # (Auto) 0.7 L [place] # (Auto) 0.6 Eos # (Auto) 0.2 Baso # (Auto) 0.1 Immature Gran # (Auto) 0.11 H Absolute Nucleated RBC 0.00 Immature Gran % 2 H Nucleated RBC % 0 Sodium 139 Potassium 3.6 Chloride 106 Carbon Dioxide 24.6 Anion Gap 8 BUN 11 Creatinine 1.0 Estim Creat Clear Calc 88.0 eGFR > 60 BUN/Creatinine Ratio 11 L Glucose 147 H Calculated Osmolality 279 Calcium 8.0 L Corrected Calcium 9.1 Phosphorus 3.0 Magnesium 1.9 Total Bilirubin 6.0 H AST 104 H ALT 43 Alkaline Phosphatase 148 H Total Protein 6.2 Albumin 2.6 L Globulin 3.6 H Albumin/Globulin Ratio 0.7 L Impressions Impression: Upper GI bleed secondary to esophageal varices requiring band ligation Continue current management Assessment & Plan A&P Narrative Hematemesis Melena Posthemorrhagic anemia in the setting of cirrhotic liver disease secondary to alcohol Plan Agree with the current management with IV octreotide IV Protonix and blood transfusion N.p.o. midnight tonight Consent obtained for fiberoptic esophagogastroduodenoscopy with possible therapeutic intervention under intravenous moderate sedation scheduled for tomorrow Thank you for the opportunity to participate in the care of this patient Time Spent With Patient Time: Total time spent is greater than 50% in coordination of care (as documented) at patient's floor/unit and/or counseling patient:
[2025-09-26] VITALS: BP 130/88; PULSE 88; RESP 17; TEMP 36.7; O2SAT 97
[2025-09-26 04:00] VITALS: BP 111/68; PULSE 85; PULSE 86; RESP 17; TEMP 36.4; O2SAT 96
[2025-09-26] MEDS: LACTULOSE SYRUP 20 GM/30 ML UDC 10 GM PO (05:25)
[2025-09-26 06:00] VITALS: BMI 33.1
[2025-09-26 06:14] LABS: Basophils # (Auto) 0.0 Thou/mm3 (0.0-0.2); Basophils % (Auto) 1 % (0-2.5); Eosinophils # (Auto) 0.2 Thou/mm3 (0.0-0.5); Eosinophils % (Auto) 3 % (0-10); Hematocrit 27.1 % (41.0-53.0); Hemoglobin 9.3 g/dL (13.5-16.0); Immature Granulocytes Auto 0.10 Thou/mm3 (0.00-0.00); Lymphocytes # (Auto) 0.7 Thou/mm3 (1.0-4.8); Lymphocytes % (Auto) 11 % (10-50); Mean Corpuscular HGB Conc 34.3 g/dl (31.0-37.0); Mean Corpuscular Hemoglobin 33.9 pg (25.0-35.0); Mean Corpuscular Volume 99 fL (80-100); Monocytes # (Auto) 0.6 Thou/mm3 (0.0-0.8); Monocytes % (Auto) 9 % (0-12); Neutrophils # (Auto) 5.0 Thou/mm3 (1.8-7.7); Neutrophils % (Auto) 75 % (37-80); Nucleated Red Blood Cell # 0.00 Thou/mm3 (0.00-0.00); Nucleated Red Blood Cell % 0 /100 WBC (0); Platelet Count 87 Thou/mm3 (140-440); RDW Standard Deviation 56.5 fL (35.1-43.9); Red Blood Count 2.74 Miln/mm3 (4.50-5.90); White Blood Count 6.7 Thou/mm3 (3.8-10.6)
[2025-09-26 06:43] LABS: Alanine Aminotransferase 45 U/L (10-49); Albumin, Serum 2.6 gm/dL (3.5-5.0); Albumin/Globulin Ratio 0.7 (1.2-2.2); Alkaline Phosphatase 158 U/L (46-116); Anion Gap 10 (7-16); Aspartate Amino Transferase 106 U/L (0-34); BUN/Creatinine Ratio 11 Ratio (12-20); Bilirubin,Total 5.9 mg/dL (0.3-1.2); Blood Urea Nitrogen 10 mg/dL (9-23); Calcium 8.1 mg/dL (8.3-10.6); Calcium (Corrected) 9.2 mg/dL (8.5-10.1); Carbon Dioxide 22.4 mMol/L (20.0-31.0); Chloride 105 mMol/L (98-107); Creatinine (Component) 0.9 mg/dL (0.6-1.3); Estimated Creatinine Clearance 97.7 mL/min (>60); Globulin 3.6 gm/dL (2.3-3.5); Glucose 142 mg/dL (74-106); Magnesium 2.0 mg/dL (1.6-2.6); Osmolality,Calculated 274 (275-295); Phosphorous 2.6 mg/dL (2.4-5.1); Potassium 4.0 mMol/L (3.4-5.1); Sodium 137 mMol/L (136-145); Total Protein 6.2 gm/dL (5.7-8.2); eGFR > 60 See Note
[2025-09-26 08:00] VITALS: BP 121/76; PULSE 80; PULSE 89; RESP 16; TEMP 36.8; O2SAT 97
[2025-09-26] MEDS: cefTRIAXone/D5w 1gm IV premix 1 GM/50 ML BAG IV (08:43)
--- NOTE | 2025-09-26 10:17 | ESDS_ITS ---
<Statement entered by Kenny Mcdermott MD - 10/01/25 08:34> I reviewed above note and agree with findings and plans. I have also personally examined the patient with medicine team and went over assessment and plan with medical team including administration internship and resident physician. Planned Discharge Date 09/26/25 DS: Providers Provider Date of admission: 09/21/25 06:01 Primary care physician: Macario Muñoz Admitting Provider: Barrington Miranda MD Attending Provider on Admission: Barrington Miranda MD Consults: 09/21/25 05:19 Consult to Gastroenterology Stat Comment: Consulting Provider: Reji Barclay Attending Provider on DC: Kathleen Robertson MD Discharging Provider: Kathleen Robertson MD DS: Diagnosis Problem List Completed Was Problem List Reviewed/Reconciled?: Yes Hospital Course Hospital Course Hospital course: 49-year-old Turkish-speaking male with a history of cirrhosis secondary to alcohol use disorder, known esophageal varices status post prior banding, and type 2 diabetes mellitus presented on 09/21/2025 with multiple episodes of hematemesis and a two-day history of melena. On presentation, he was actively vomiting with scant blood and found to have acute on chronic anemia with hemoglobin of 9.3. He was started in the emergency department on IV pantoprazole, octreotide, and antiemetics, and gastroenterology was consulted for concern for acute upper gastrointestinal bleeding. The patient was admitted to the medical floor and managed with IV proton pump inhibitor therapy, octreotide infusion, NPO status, and ceftriaxone for spontaneous bacterial peritonitis prophylaxis. Hemoglobin declined to a luna of 7.4 on hospital day two, for which he received one unit of packed red blood cells with appropriate response and stabilization of hemoglobin thereafter. An EGD was performed on 09/22/2025, which demonstrated grade III esophageal varices requiring band ligation. One distal esophageal varix was noted to be ulcerated from prior banding with necrotic tissue nearing sloughing. There was also evidence of portal hypertensive gastropathy. No active bleeding was identified following intervention. The patient completed a full five-day course of octreotide infusion and ceftriaxone. Throughout hospitalization, the patient remained hemodynamically stable with soft blood pressures, prompting temporary holding of home diuretics and propranolol. He remained alert and oriented without evidence of hepatic encephalopathy. Lactulose was resumed for encephalopathy prophylaxis. Diet was gradually advanced from NPO to liquids and then to a low-sodium diet, which he tolerated well. Melena gradually resolved and hemoglobin remained stable in the 9?10 range prior to discharge. By discharge, the patient was asymptomatic, tolerating diet, ambulating independently, and had completed therapy for acute variceal bleeding. He was deemed medically stable for discharge with close outpatient gastroenterology and hepatology follow-up. Diagnosis during admission: #Acute upper GI bleed #Grade III esophageal varices #History of esophageal varices status post band placement #Acute on chronic normocytic anemia #Cirrhosis, secondary to #Alcohol use disorder #Transaminitis #Hyperbilirubinemia #Thrombocytopenia #Hypoalbumenia #Vom-[id number] type 2 diabetes Discharge Instructions: * Follow-up with PCP within 1-2 weeks of discharge. * Follow-up with GI within 2 weeks of discharge. * Avoid alcohol, spicy foods, acidic foods (citrus, tomatoes), coffee, chocolate, and NSAIDs, as they can irritate the esophagus and increase rebleeding risk. * Continue taking PROTONIX daily for 60 more days. * Limit sodium intake to 2 grams daily. * Continue taking medications as prescribed below. * Return to Emergency Room if symptoms persist, worsen, or new symptoms develop. ----- Plan discussed with attending physician Dr. Baldemar Robertson MD PGY-1 Internal Medicine Time Spent with Patient Time attestation: Total time spent providing and/or coordinating discharge services: Time spent: Greater than 30 minutes Exam Vital Signs Temp Pulse Resp BP Pulse Ox O2 Del Method O2 Flow Rate 98.2 F 89 16 121/76 97 Room Air 3 09/26/25 08:00 09/26/25 08:00 09/26/25 08:00 09/26/25 08:00 09/26/25 08:00 09/26/25 08:00 09/24/25 12:00 Narrative Exam Physical Exam General: Awake and in no acute distress. HEENT: Normocephalic, atraumatic, extraocular movements intact, pupils equal and reactive to light. Scleral icterus. Heart: Regular rate and rhythm, no murmurs, rubs or gallops. Lungs: Clear to auscultation with no wheezing or crackles bilaterally. Non- labored respirations, symmetric chest rise, no use of accessory muscles. Abdomen: Soft, distended, nontender. No guarding or rebound tenderness. Neurologic: Alert and oriented x3, no gross neurological deficit, and patient able to move all 4 extremities. Extremities: No edema, clubbing or cyanosis. No joint deformity. 2+ radial and dorsalis pedis pulses bilaterally. Skin: Warm and dry without rash. Jaundiced. Psychiatric: Cooperative, appropriate mood and affect. Discharge Plan Plan Patient Disposition: HOME (Self Care) Patient condition on transfer: Stable Care Plan Goals: * Follow-up with PCP within 1-2 weeks of discharge. * Follow-up with GI within 2 weeks of discharge. * Avoid alcohol, spicy foods, acidic foods (citrus, tomatoes), coffee, chocolate, and NSAIDs, as they can irritate the esophagus and increase rebleeding risk. * Continue taking PROTONIX daily for 60 more days. * Limit sodium intake to 2 grams daily. * Continue taking medications as prescribed below. * Return to Emergency Room if symptoms persist, worsen, or new symptoms develop. Prescriptions/Referrals Prescriptions/Med Rec: Continued propranolol 10 mg Tablet 10 mg PO BID Qty: 60 0RF furosemide 40 mg Tablet 40 mg PO QDAY spironolactone 25 mg Tablet 25 mg PO 1XD cholecalciferol (vitamin D3) 1,250 mcg (50,000 unit) Capsule 50,000 unit PO QWEEK Jardiance 25 mg Tablet 25 mg PO QDAY lactulose 10 gram/15 mL syrup 10 g PO TID ferrous sulfate [Pramod-Time] 325 mg (65 mg iron) tablet 325 mg PO QDAY pantoprazole [Protonix] 40 mg tablet,delayed release (DR/EC) 40 mg PO QDAY 60 Days Qty: 60 0RF Referrals: Macario Farooq [Primary Care Provider] Patient/Caregiver Discharge Instructions Education Materials: Bleeding Gastrointestinal, Understanding Cirrhosis Print Language: Turkish Stand Alone Forms: Valentina Award Info., Patient Portal Info Letter Discharge Order Discharge Orders: Discharge (Routine); Ordered 09/26/25 Ordered By: Kathleen Robertson Quality Discharge Quality Measures VTE prophylaxis
[2025-09-26 11:45] VITALS: BP 124/83; PULSE 88; RESP 16; TEMP 36.6; O2SAT 95
--- NOTE | 2025-09-26 17:14 | PC.NURSE ---
This nurse gave pt discharge instructions using shaping machine tender service [id number], also this nurse removed pt iv from bot arms he had a total of two one on the right arm and one on the left arm this nurse removed both, cath tip intact, no swelling or redness at site pt tolerated well and voices no c/o pain, pt signed discharge instructions and understands when to follow up with PCP and GI doctor, pt had significant other at bedside as well during all the instruction and also voices understanding
--- NOTE | 2025-09-26 18:14 | PD.IMPROG ---
Documentation for date of: 09/26/25 Subjective Subjective Interval history: Late entry for the note Hemodynamically patient is doing well Okay to discharge to be followed by the PCP Exam Vital Signs Temp Pulse Resp BP Pulse Ox O2 Del Method O2 Flow Rate 97.8 F 88 16 124/83 95 Room Air 3 09/26/25 11:45 09/26/25 11:45 09/26/25 11:45 09/26/25 11:45 09/26/25 11:45 09/26/25 11:45 09/24/25 12:00 Objective Labs 09/26/25 04:56 09/26/25 04:56 Labs: Laboratory Results - last 24 hr 09/26/25 04:56 WBC 6.7 RBC 2.74 L Hgb 9.3 L Hct 27.1 L MCV 99 MCH 33.9 MCHC 34.3 RDW Std Deviation 56.5 H Plt Count 87 L Neut % (Auto) 75 Lymph % (Auto) 11 [place] % (Auto) 9 Eos % (Auto) 3 Baso % (Auto) 1 Neut # (Auto) 5.0 Lymph # (Auto) 0.7 L [place] # (Auto) 0.6 Eos # (Auto) 0.2 Baso # (Auto) 0.0 Immature Gran # (Auto) 0.10 H Absolute Nucleated RBC 0.00 Immature Gran % 2 H Nucleated RBC % 0 Sodium 137 Potassium 4.0 Chloride 105 Carbon Dioxide 22.4 Anion Gap 10 BUN 10 Creatinine 0.9 Estim Creat Clear Calc 97.7 eGFR > 60 BUN/Creatinine Ratio 11 L Glucose 142 H Calculated Osmolality 274 L Calcium 8.1 L Corrected Calcium 9.2 Phosphorus 2.6 Magnesium 2.0 Total Bilirubin 5.9 H AST 106 H ALT 45 Alkaline Phosphatase 158 H Total Protein 6.2 Albumin 2.6 L Globulin 3.6 H Albumin/Globulin Ratio 0.7 L Impressions Impression: Esophageal varices status post band ligation Okay to discharge to be followed by PCP Assessment & Plan A&P Narrative Hematemesis Melena Posthemorrhagic anemia in the setting of cirrhotic liver disease secondary to alcohol Plan Agree with the current management with IV octreotide IV Protonix and blood transfusion N.p.o. midnight tonight Consent obtained for fiberoptic esophagogastroduodenoscopy with possible therapeutic intervention under intravenous moderate sedation scheduled for tomorrow Thank you for the opportunity to participate in the care of this patient Time Spent With Patient Time: Total time spent is greater than 50% in coordination of care (as documented) at patient's floor/unit and/or counseling patient:
== END 2025-09-26 13:20 | disposition home or self-care (01) | DRG 280 ==
LOC: SERX 06:02 → SERHOLD 06:19 → S3NX 09-22 06:18 → SERHOLD 09-22 06:24
PROVIDERS: Physician Assistant; Specialist; Admitting Provider Student in an Organized Health Care Education/Training Program; Emergency Provider Emergency Medicine; PCP Physician Assistant; Visit Provider Student in an Organized Health Care Education/Training Program
PROC: (CPT 43239; principal; 2025-09-22 14:00)
DX: K70.30 Alcoholic cirrhosis of liver without ascites (principal); E11.9 Type 2 diabetes mellitus without complications; D69.59 Other secondary thrombocytopenia; I85.11 Secondary esophageal varices with bleeding; F10.10 Alcohol abuse, uncomplicated; D50.0 Iron deficiency anemia secondary to blood loss (chronic); K31.89 Other diseases of stomach and duodenum; K76.6 Portal hypertension; Z79.84 Long term (current) use of oral hypoglycemic drugs
CPT/HCPCS: 36415; 80053; 81001; 83690; 83735; 84100; 85014; 85018; 85025; 85610; 86850; 86900; 86901; 86923; 87081; 87086; 90686; 93005; 93225; 96374; 99283; A4649; J0696; J1200; J1815; J2250; J2354; J2470; J3010; J3490; J7050; J7120; P9016; A9270; J9060